=== PATIENT | female | born 1995 | race Caucasian/White ===

== ENCOUNTER 2022-11-25 13:53 | Emergency (ER) | payer BC, SELFPAY ==
[2022-11-25 14:03] VITALS: BP 144/93; PULSE 79; RESP 16; TEMP 36.5; O2SAT 100
--- NOTE | 2022-11-25 14:47 | ED.URI ---
HPI - URI/Sore Throat General Chief Complaint: Upper Respiratory Infection Stated Complaint: Cough,Fatigue,Congestion Time Seen by Provider: 11/25/22 14:11 Source: patient and RN notes reviewed Mode of arrival: ambulatory Limitations: no limitations History of Present Illness HPI Narrative: Patient presents today complaining of a 3 day history of sore throat, fatigue, cough, postnasal drip, bilateral ear clogging, decreased sleep due to coughing episodes. Denies fever or shortness of breath. History allergies and allergy induced asthma. Currently rates her pain 5/10 and has been taking Tylenol and ibuprofen with mild relief. She also takes an allergy pill daily. Related Data Home Medications Medication Instructions Recorded Confirmed budesonide-formoterol HFA 160 2 puff inhalation DAILY 11/25/22 11/25/22 mcg-4.5 mcg/actuation aerosol inhaler (Symbicort) norgestimate 0.25 mg-ethinyl 1 tablet PO DAILY 11/25/22 11/25/22 estradiol 35 mcg tablet (Estarylla) Allergies Allergy/AdvReac Type Severity Reaction Status Date / Time No Known Allergies Allergy Verified 11/25/22 14:06 Review of Systems Review of Systems: CONSTITUTIONAL: Denies body aches, fever, chills, or sweats.+ fatigue EYES: Denies visual changes, redness, or discharge. ENT: Denies rhinorrhea, congestion, or otalgia.+ sore throat, postnasal drip, bilateral ear coughing CARDIOVASCULAR: Denies chest pain, palpitations, or edema. RESPIRATORY: Denies dyspnea.+ cough GASTROINTESTINAL: Denies abdominal pain, nausea, vomiting, or diarrhea. GENITOURINARY: Denies dysuria or hematuria. SKIN: Denies rash, itching, or wounds. MUSCULOSKELETAL: Denies back pain, joint pain, or myalgia. NEUROLOGIC: Denies headache, numbness, tingling, or weakness. PSYCH: Denies depression or anxiety. [facility] Past Medical History Medical History (Updated 11/25/22 @ 14:52 by Elaina Murguia, DIVISIONAL HUMAN RESOURCES DIRECTOR, ) Asthma Seasonal allergies Comments At time of signature, I have reviewed and agree with nursing past medical, surgical, social and family history unless otherwise noted. Please see nursing chart for further information. There is no relevant family history pertinent to the presenting complaint Exam Narrative: GENERAL: Well-appearing, well-nourished, and in no acute distress. HEAD: Normocephalic, atraumatic. EYES: EOMI. No redness or drainage. Conjunctivae normal. ENT: Mucous membranes pink and moist. Nares congested. No rhinorrhea. Bilateral middle ear effusions without evidence of bacterial infection. Throat mildly erythematous without edema today. Uvula midline. NECK: Normal AROM. Supple. No lymphadenopathy. CHEST: No respiratory distress. Clear to auscultation. HEART: Regular rate and rhythm. No murmur appreciated. EXTREMITIES: Normal range of motion. No edema. SKIN: Warm, dry, no rash. Capillary refill normal. Normal skin turgor. NEURO: No focal deficits. Alert and oriented x3. Gait steady. PSYCH: Normal affect. No signs of depression or anxiety. Course Course Level of Care: Express Care Visit Vital Signs Vital signs: Vital Signs Oxygen Delivery Room Air 11/25/22 14:02 Temperature 97.7 F 11/25/22 14:03 Pulse Rate 79 11/25/22 14:03 Respiratory Rate 16 11/25/22 14:03 Blood Pressure 144/93 H 11/25/22 14:03 Pulse Oximetry 100 11/25/22 14:03 Oxygen Delivery Room Air 11/25/22 14:03 Reviewed. Pt has been instructed to follow up with her PCP regarding her elevated blood pressure today. MDM - URI/Sore Throat MDM Narrative Medical decision making narrative: Symptoms likely related to seasonal allergies. Will treat with prednisone. Instructed patient to continue her allergy medication and inhaler. Anticipatory guidance given. Differential Diagnosis Differential diagnosis: Likely upper respiratory infection, otitis media, viral infection, bronchitis and other (Seasonal allergies, asthma exacerbation) Critical Care Ti
== END 2022-11-25 14:58 | disposition home or self-care (01) ==
PROVIDERS: Emergency Provider Nurse Practitioner
DX: J30.2 Other seasonal allergic rhinitis (principal); J40 Bronchitis, not specified as acute or chronic; J45.909 Unspecified asthma, uncomplicated
CPT/HCPCS: 99203; G0463

== ENCOUNTER 2023-07-04 22:19 | Emergency (ER) | payer OTHER, SELFPAY ==
[2023-07-04 22:25] VITALS: BP 128/90; PULSE 118; RESP 20; TEMP 37.4; O2SAT 98
[2023-07-04 22:44] VITALS: O2SAT 99
--- NOTE | 2023-07-04 23:21 | PC.NURSE ---
care and report given to THUY Valadez. all questions answered.
[2023-07-04 23:23] LABS: Strep Group A RT-PCR NOT DETECTED (Negative)
[2023-07-04 23:34] LABS: Influenza A QL RT-PCR Negative (Negative); Influenza B QL RT-PCR Negative (Negative); RSV RNA, RT-PCR Negative (Negative); SARS-CoV-2 RNA PCR Negative (Negative)
--- NOTE | 2023-07-05 01:29 | ED.URI ---
HPI - URI/Sore Throat General Chief Complaint: Upper Respiratory Infection Stated Complaint: sore throat, aches all over Time Seen by Provider: 07/05/23 00:29 Source: patient Mode of arrival: ambulatory Limitations: no limitations History of Present Illness HPI Narrative: Patient is a 28-year-old female who presents the ED with report of URI symptoms. Patient reports she developed a sore throat today, in addition to chills, myalgias, congestion. She denies significant cough. Denies known fevers. Denies chest pain or shortness breath. Denies nausea, vomiting. Denies known sick contacts, but does states she went to a hockey game a couple of nights ago and was around a large crowd of people. Has taken OTC nirmal PromptCaretzer cough medicine. Related Data Home Medications Medication Instructions Recorded Confirmed budesonide-formoterol HFA 160 2 puff inhalation DAILY 11/25/22 11/25/22 mcg-4.5 mcg/actuation aerosol inhaler (Symbicort) norgestimate 0.25 mg-ethinyl 1 tablet PO DAILY 11/25/22 11/25/22 estradiol 35 mcg tablet (Estarylla) Allergies Allergy/AdvReac Type Severity Reaction Status Date / Time No Known Allergies Allergy Verified 07/04/23 22:19 Review of Systems Review of Systems: CONSTITUTIONAL: See HPI. ENT: See HPI. CARDIOVASCULAR: Denies chest pain. RESPIRATORY: Denies cough or dyspnea. GASTROINTESTINAL: Denies abdominal pain, nausea, vomiting. MUSCULOSKELETAL: Reports myalgia. All systems reviewed & are unremarkable except as noted in HPI and below PMFSH Past Medical History Medical History Asthma Seasonal allergies Exam Narrative: GENERAL: Well appearing, obese with BMI 30.0, non-toxic, in no acute distress. HEAD: Normocephalic, atraumatic. ENT: Mild posterior pharynx erythema. No tonsillar hypertrophy or exudate. Uvula midline. RESPIRATORY: Airway patent, respirations nonlabored. Clear to auscultation bilaterally, no rales, rhonchi, wheezing. CARDIOVASCULAR: Regular rate and rhythm without murmurs, rubs, or gallops. MUSCULOSKELETAL: Moves all extremities. No gross deformities. SKIN: Warm, dry, normal color. NEURO: A&O X3. Speech clear. Cranial nerves II-XII grossly intact. Steady gait. No ataxic movements. PSYCHIATRIC: Appropriate mood and affect. Normal interaction. Course Vital Signs Vital signs: Vital Signs Temperature 99.3 F 07/04/23 22:25 Pulse Rate 118 H 07/04/23 22:25 Respiratory Rate 20 07/04/23 22:25 Blood Pressure 128/90 07/04/23 22:25 Pulse Oximetry 98 07/04/23 22:25 Oxygen Delivery Room Air 07/04/23 22:25 Temperature 99.0 F 07/05/23 01:48 Pulse Rate 99 07/05/23 01:48 Respiratory Rate 16 07/05/23 01:48 Blood Pressure 123/88 07/05/23 01:48 Pulse Oximetry 100 07/05/23 01:48 Oxygen Delivery Room Air 07/04/23 22:44 MDM - URI/Sore Throat MDM Narrative Medical decision making narrative: Patient presented to ED with 1 day history of URI sx's. VSS upon arrival. viral swabs negative. Strep negative. Patient updated on results. Discussed likely of viral URI. Advised can retest for COVID-19 in the next few days if symptoms continue. Discussed symptom management. Discussed return precautions. Patient discharged in stable condition. Medical Records Attestation: I reviewed the patient's medical records. Lab Data Attestation: I reviewed the patient's lab results. Labs: Lab Results 07/04/23 Range/Units 22:34 Influenza A (RT-PCR) Negative (Negative) Influenza B (RT-PCR) Negative (Negative) RSV (RT-PCR) Negative (Negative) SARS-CoV-2 RNA (RT-PCR) Negative (Negative) Group A Strep (PCR) Not detected (Negative) Discharge Plan Discharge Clinical Impression: Viral syndrome Pharyngitis Qualifiers: Pharyngitis/tonsillitis etiology: unspecified etiology Qualified Code(s): J02.9 - Acute pharyngitis, unspecified
[2023-07-05 01:48] VITALS: BP 123/88; PULSE 99; RESP 16; TEMP 37.2; O2SAT 100
[2023-07-05] MEDS: LIDOCAINE HCL 2% VISC SOLN 15 ML UDC PO (01:51)
== END 2023-07-05 01:55 | disposition home or self-care (01) ==
PROVIDERS: Emergency Medicine; Emergency Provider Physician Assistant
DX: B34.9 Viral infection, unspecified (principal); J02.9 Acute pharyngitis, unspecified; Z20.822 Contact with and (suspected) exposure to COVID-19; J45.909 Unspecified asthma, uncomplicated
CPT/HCPCS: 87637; 87651; 99283

== ENCOUNTER 2024-07-05 13:35 | Emergency (ER) | payer OTHER, SELFPAY ==
[2024-07-05 14:14] VITALS: BP 142/83; PULSE 98; RESP 16; TEMP 36.6; O2SAT 99
--- NOTE | 2024-07-05 14:32 | ED_ITS ---
HPI - URI/Sore Throat General Chief Complaint: Upper Respiratory Infection Stated Complaint: Flu like symptoms Time Seen by Provider: 07/05/24 14:33 Source: patient and RN notes reviewed Mode of arrival: ambulatory Limitations: no limitations History of Present Illness HPI Narrative: 29-year-old female with history of asthma presented for complaint of headache, body aches, sinus pressure/congestion, cough, fever/chills. Onset 3 days. Denies sob, wheezing, n/v/d. Taking DayQuil and NyQuil for symptoms. MD elicited complaint: cough Related Data Home Medications ?Medication ?Instructions ?Recorded ?Confirmed ?Last Taken ?Type budesonide-formoterol HFA 160 2 puff inhalation DAILY 11/25/22 11/25/22 Unknown History mcg-4.5 mcg/actuation aerosol inhaler (Symbicort) norgestimate 0.25 mg-ethinyl 1 tablet PO DAILY 11/25/22 11/25/22 Unknown History estradiol 35 mcg tablet (Estarylla) Allergies Allergy/AdvReac Type Severity Reaction Status Date / Time No Known Allergies Allergy Verified 07/05/24 14:36 Review of Systems 2 Review of Systems: CONSTITUTIONAL: Endorses malaise, chills, sweats, fever EYES: Denies visual changes, redness, or discharge ENT: Reports rhinorrhea, congestion, sinus pain, otalgia, sore throat CARDIOVASCULAR: Denies chest pain, palpitations, edema RESPIRATORY: Reports cough, post nasal drainage. Denies dyspnea GASTROINTESTINAL: Denies abdominal pain, nausea, vomiting, diarrhea SKIN: Denies rash or itching MUSCULOSKELETAL: Endorses myalgia PMFSH Past Medical History Medical History Seasonal allergies Asthma Exam Narrative: GENERAL: Ill-appearing, nontoxic no acute distress. EYES: PERRLA, conjunctivae clear ENT: Mucous membranes moist. TM pearly guzman with dull light reflex bilaterally; no tragal tenderness. Oropharynx not erythematous without lesions or exudate, no drooling, no hoarseness, no trismus, uvula midline. No tripod positioning, muffled voice, soft palate or pharyngeal wall bulging NECK: Supple. No lymphadenopathy CHEST: Clear to auscultation, breath sounds equal. No wheezing, rhonchi, rales, or stridor. No respiratory distress, speaks in full sentences. HEART: Regular rate and rhythm. No murmur heard. SKIN: Warm, dry, no rash. NEURO: Alert and oriented x3. PSYCH: Normal mood and affect Course Course Emergency Course: Patient is aware of diagnosis, understands and agrees to treatment plan. Anticipatory guidance given. Patient agrees to follow-up as directed and is a neal of reasons to seek care at the emergency department. Portions of this record may have been created with voice recognition software Level of Care: Express Care Visit Vital Signs Vital signs: Vital Signs Temperature 97.8 F 07/05/24 14:14 Pulse Rate 98 07/05/24 14:14 Respiratory Rate 16 07/05/24 14:14 Blood Pressure 142/83 H 07/05/24 14:14 Pulse Oximetry 99 07/05/24 14:14 Temperature 97.8 F 07/05/24 14:14 Pulse Rate 98 07/05/24 14:14 Respiratory Rate 16 07/05/24 14:14 Blood Pressure 142/83 H 07/05/24 14:14 Pulse Oximetry 99 07/05/24 14:14 reviewed MDM - URI/Sore Throat MDM Narrative Medical decision making narrative: Discussed physical exam findings. POS flu. Advised supportive measures and signs/symptoms to go to the ER. Pt is appropriate for outpt treatment and f/u. Differential Diagnosis Differential diagnosis: Likely upper respiratory infection, otitis media, sinusitis, viral infection, bronchitis, influenza and pharyngitis Discharge Plan Discharge Clinical Impression: Influenza Patient Disposition: Home, Self-Care Condition: Stable Instructions: Influenza (ED) Additional Instructions: Influenza positive You should avoid crowds until you are fever free for 24 hours without the use of fever reducing medications, or the symptoms are improved Rest. Drink plenty of fluids. Tylenol 1000mg every 8 hours as needed for pain/fever Recommend Flonase spray and Zyrtec (or Claritin/Irish) for sinus pressure/congestion over the counter Cough syrup may cause drowsiness; avoid driving or take it at night time. Follow up with your primary care provider as needed in 1-2 weeks Go to the ER for worsening symptoms or concerns Patient Language: Frisian Prescriptions: New albuterol sulfate 90 mcg/actuation HFA aerosol inhaler 1 inh inhalation QID PRN (Reason: shortness of breath or wheezing) Qty: 8.5 0RF No Action norgestimate-ethinyl estradiol [Estarylla] 0.25-35 mg-mcg tablet 1 tablet PO DAILY budesonide-formoterol [Symbicort] 160-4.5 mcg/actuation HFA aerosol inhaler 2 puff INHALATION DAILY prednisone 50 mg tablet 50 mg PO DAILY 5 Days Qty: 5 0RF Follow-up/Referrals: UNKNOWN,DOCTOR [Primary Care Provider] - Stand Alone Forms: Work/School Release IP Time of Disposition: 14:37
[2024-07-05 14:35] LABS: EDCOVIDSCREEN Negative (Negative); EDINFLUASCREEN Positive (Negative); EDINFLUBSCREEN Negative (Negative)
--- OUTSIDE RECORDS SUMMARY | 2024-07-12 15:38 | XMS_ITS | Encounter Summary ---
Author Organization [facility] Address [address] [place] [address] Phone Care Team Providers Care Access Service Representative Name Role Phone Minnie Mcneil MD Primary Care Provider [phone] Encounter Details Date Type Department Care Team (Late st Contact Info) Description 05/02/2020 Orders Only [facility] Pulmonary [address] [facility] Advanced Medicine [address]th [place] [address] [place] [address] Casie Lowe MD PhD [address] [facility] [address] [place] [address] Moderate persistent asthma, unspecified whether complicated (Primary Dx) Social History Tobacco Use Types Packs/Day Years Used Date Smoking Tobacco: Never Smokeless Tobacco: Never Comments Unknown Sex and Gender Information Value Date Recorded Sex Assigned at Not on file 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
--- OUTSIDE RECORDS SUMMARY | 2024-07-12 15:38 | XMS_ITS | Clinical Summary ---
Author Organization [facility] Address [address] [place] [address] Care Team Providers Care Novelty Twister Operator Name Role Phone Minnie Mcneil MD Primary Care Provider [phone] Tbaby Hopkins RN Unavailable Unavailabl e Allergies No known active allergies Medications cetirizine-pseudo ephedrine ER (ZyrTEC-D) 5-120 mg per 12 hr tablet Take 1 tablet by mouth every 12 (twelve) hours 9 Active albuterol HFA (PROVENTIL HFA,VENTOLIN HFA,PROAIR HFA) 90 mcg/actuation inhaler Inhale 2 puffs every 6 (six) hours as needed 9 Active budesonide-formot Charly (Symbicort) 160-4.5 mcg/actuation inhaler Inhale 2 puffs 2 (two) times a day 9600 mcg of budesonide 5 1 Active mv-min/iron/folic /calcium/vitK (WOMEN'S MULTIVITAMIN ORAL) Take by mouth Active Active Problems Problem Noted Date Diagnosed Date Vocal cord dysfunction 04/14/2018 Moderate persistent asthma Overview (02/15/2020): Patient called in requesting refill of her symbicort. Called in refill of Symbicort to [facility] in [facility] as refill had not gone through. 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 Gender Identity Female 10/30/2021 8:16 AM CDT Sexual Orientation Not on file Obstetrics History Last Filed Vital Signs Vital Sign Reading Time Taken Comments Blood Pressure 133/96 04/29/2023 12:45 PM CDT Pulse 80 04/29/2023 12:45 PM CDT Temperature 36.6 ??C (97.9 ??F) 04/29/2023 12:45 PM C DT Respiratory Rate 18 04/29/2023 12:45 PM CDT Oxygen Saturation 97% 04/29/2023 12:45 PM CDT Inhaled Oxygen Concentration - - Weight 72.6 kg (160 lb) 04/29/2023 12:45 PM CDT Height 160 cm (5' 3 ) 04/29/2023 12:45 PM CDT Body Mass Index 28.34 04/29/2023 12:45 PM CDT Plan of Treatment Health Maintenance Due Date Last Done Comments Cervical Cancer Screening 1996 Depression Screening 1996 Hepatitis C Screening 1996 Pneumococcal vaccine <65 (1 of 2 - PCV) 2002 Regular Well Visit/Exam 18-64 2014 DTaP/Tdap/Td Vaccine (7 - Td or Tdap) 02/04/2017 02/04/2007, 11/11/2001, 06/18/1997, Additional history exists Influenza Vaccine (#1) 2024 9, 04/14/2018, 02/23/2016 Varicella Vaccines Completed 02/04/2007, 03/16/1997 HPV Vaccines Completed 07/04/2011, 02/06, 12/27/2010 Insurance CHOICE PLUS Care Teams Novelty Twister Operator Relationship Specialty [place] [address] [address] PCP - General Internal Medicine 05/04/19 Tabby Hopkins, RN Registered Nurse Pulmonary Disease 04/29/23
--- OUTSIDE RECORDS SUMMARY | 2024-07-12 15:38 | XMS_ITS | Encounter Summary ---
Author Organization [facility] Address [address] [place] [address] Phone Care Team Providers Care Cook Ship Name Role Phone Zunilda Coles MD Primary Care Provider + Encounter Details Date Type Department Care Team (Late st Contact Info) Description 04/14/2018 3:30 PM CDT Office Visit [facility] Pulmonary [address] [facility] Advanced Medicine [address]th [place] [address] [place] [address] Dann Vega MD [address] [place], [place] [id number] Moderate persistent asthma without complication (Primary Dx); Vocal cord dysfunction Social History Tobacco Use Types Packs/Day Years Used Date Smoking Tobacco: Never Smokeless Tobacco: Never Comments Unknown Sex and Gender Information Value Date Recorded Sex Assigned at Not on file 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 Gender Identity Female 10/30/2021 8:16 AM CDT Sexual Orientation Not on file documented as of this encounter Last Filed Vital Signs Vital Sign Reading Time Taken Comments Blood Pressure 123/83 04/14/2018 3:43 PM CDT Pulse 65 04/14/2018 3:43 PM CDT Temperature 36.9 ??C (98.4 ??F) 04/14/2018 3:43 PM CD T Respiratory Rate 18 04/14/2018 3:43 PM CDT Oxygen Saturation 96% 04/14/2018 3:43 PM CDT Inhaled Oxygen Concentration - - Weight 64.4 kg (142 lb) 04/14/2018 3:43 PM CDT Height 157.5 cm (5' 2 ) 04/14/2018 3:43 PM CDT Body Mass Index 25.97 04/14/2018 3:43 PM CDT documented in this encounter Patient Instructions * Patient Instructions* Sourav Max MD - 04/14/2018 3:30 PM CDT Decrease Symbicort to 2 puffs in the morning (even though the script will say twice daily - this will give you extra doses). documented in this encounter Ordered Prescriptions Prescription Sig Dispense Quantity Refills Last Filled Start Date End Date albuterol HFA (PROAIR HFA) 90 mcg/actuation inhaler Inhale 2 puffs every 6 (six) hours as needed for wheezing. 1 Inhaler 5 04/14/2018 04/23/2019 budesonide-formote rol (SYMBICORT) 160-4.5 mcg/actuation inhaler Inhale 2 puffs 2 (two) times a day. 1 Inhaler 5 04/14/2018 04/23/2019 documented in this encounter Progress Notes * Sourav Max MD - 04/14/2018 12:00 AM CDT PATIENT NAME: ROYER GONZALEZ : 1995 VIJAY: 04/14/2018 CHIEF COMPLAINT: Asthma. INTERVAL HISTORY: Ms. Gonzalez returns for follow-up of her moderate persistent asthma and vocal cord dysfunction. She remains on Symbicort 160/4.5 two puffs b.i.d. and has been using albuterol scheduled prior to exercise. She continues to perform her vocal cord therapy exercises. Overall, she feels remarkably improved. She is sleeping through the night, has no exercise-induced dyspnea, and no other symptoms. Sheis tremendously pleased with this improvement. The remainder of the past medical history, medications, allergies, social history, family history, and review of systems are as noted on the previous visit from 09/09/2017. PHYSICAL EXAMINATION: Vital Signs: Per flow sheet. HEENT: Oropharynx clear. Neck: No lymphadenopathy. Cardiovascular: Regular rate and rhythm. Chest: Unlabored CTAB. Abdomen: Soft. Extremities: No clubbing, cyanosis, or edema. DATA: 1. ACT 24 (improved from 22). 2. Spirometry: FEV1 3.81, 117% predicted. FVC 4.50, 121% predicted. FEV1/FVC 85%. Interpretation: Normal spirometry, improved from prior. IMPRESSION: 1. Moderate persistent asthma--markedly improved control and lung function. 2. Vocal cord dysfunction--confirmed by rhinoscopy--improved on speech therapy. 3. Hypovitaminosis D--on replacement therapy. 4. Rhinitis. PLAN: 1. Decrease Symbicort to 80/4.5 two puffs b.i.d. 2. Continue ProAir 2 puffs 10 to 15 minutes prior to exercise. 3. She will receive an influenza vaccine in the clinic today. 4. Return in 6 months. ELECTRONICALLY SIGNED - 04/14/2018 06:42 PM Sourav Max M.D. Fellow I have seen and examined the patient and agree with the findings and plan of care as documented by and/or discussed with Sourav Max M.D.. ELECTRONICALLY SIGNED - 04/16/2018 06:18 PM Dann Vega M.D. senior quality methods specialist RISHABH/ALEXI/lorenzo cc: ZUNILDA COLES MD [address] [facility] [address] [place] [address] / ELIOT GUZMAN RN [address] [facility] [address] [place] [id number] documented in this encounter Plan of Treatment Not on file documented as of this encounter Visit Diagnoses Diagnosis Moderate persistent asthma without complication- Primary Vocal cord dysfunction Other diseases of vocal cords documented in this encounter Discontinued Medications Medication Sig Discontinue Reason Start Date End Da te budesonide-formoterol (SYMBICORT) 160-4.5 mcg/actuation inhaler Inhale 2 puffs. Duplicate order 04/14/2018 budesonide-formoterol (SYMBICORT) 160-4.5 mcg/actuation inhaler 2 times daily. Reorder 05/27/2017 04/14/2018 albuterol HFA (PROAIR HFA) 90 mcg/actuation inhaler 4 times daily. Reorder 05/27/2017 018 documented as of this encounter Historical Medications * This list may reflect changes made after this encounter. geriatric multivitamin-min tablet Take 1 tablet by mouth daily. 11/03/2021 budesonide-formot yulia (SYMBICORT) 160-4.5 mcg/actuation inhaler Inhale 2 puffs. 04/14/2018 cholecalciferol (VITAMIN D3) 2,000 unit capsule Take by mouth. 05/04/2019 cetirizine (ZyrTEC) 10 mg tablet Take by mouth. 05/02/2020 albuterol ER (VOSPIRE ER) 4 mg 12 hr tablet Inhale 2 puffs every 6 hours. 11/03/2021 ergocalciferol (VITAMIN D) 50,000 unit capsule once a week. 05/27/2017 11/03/2021 budesonide-formot yulia (SYMBICORT) 160-4.5 mcg/actuation inhaler 2 times daily. 05/27/2017 04/14/2018 albuterol HFA (PROAIR HFA) 90 mcg/actuation inhaler 4 times daily. 05/27/2017 04/14/2018 predniSONE (DELTASONE) 10 mg tablet daily. 05/27/2017 11/03/2021 cetirizine (ZyrTEC) 10 mg tablet 05/02/2020 added in this encounter Orders Immunization/Injection Count Last Ordered Date First Ordered Date FLU VACCINE MDCK QUAD PF 4Y+ IM - FLUCELVAX 1 04/14/2018 documented in this encounter Care Teams Cook Ship Relationship Specialty Start Date End Date Zunilda Coles MD [address] [place] [address] PCP - General 06/03/17 05/03/19 documented as of this encounter
--- OUTSIDE RECORDS SUMMARY | 2024-07-12 15:38 | XMS_ITS | Encounter Summary ---
Author Organization [facility] Address [address] [facility] [address] [place] [address] Phone Care Team Providers Care Boat Carpenter Mechanic Name Role Phone Minnie Mcneil MD Primary Care Provider [phone] Tabby Hopkins RN Unavailable Unavailabl e Reason for Referral * Procedure (Routine) - Authorized Specialty Diagnoses / Procedures Referred By Krystina t Referred To Contact Diagnoses Mild intermittent asthma, unspecified whether complicated Procedures Pulmonary Function Test -[facility]FT [facility]- [facility]-8D; Spirometry David Goff MD [address] [facility] [address] [place] [address] Phone: tel: fax: Referral ID Status Reason Start Date Expiration Date V isits Requested Visits Authorized [id number] Authorized 04/29/2023 05/28/2024 1 1 Encounter Details Date Type Department Care Team (Late st Contact Info) Description 04/29/2023 1:00 PM CDT Office Visit [facility] [address] [facility] 8th [place] [address] [place] [id number] Casie Lowe MD PhD [address] [place] [address] Mild intermittent asthma, unspecified whether complicated (Primary Dx) Social History Tobacco Use Types Packs/Day Years Used Date Smoking Tobacco: Never Smokeless Tobacco: Never Comments Unknown Sex and Gender Information Value Date Recorded Sex Assigned at Not on file 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 Please continue your symbicort every other day and use one puff as needed with symptoms, you can repeat it in 15 min, up to 6 times a day We will see you back in 18 months documented in this encounter Progress Notes * Casie Lowe MD PhD - 04/29/2023 1:00 PM CDT [facility] [place] [facility] follow-up visit PROBLEM LIST: 1. Moderate persistent asthma, childhood onset. On Symbicort 160mcg, currently taking once daily. 2. Allergic rhinitis, on Zyrtec. 3. Vocal Cord dysfunction, diagnosed in 06/2017, status post teaching/training by speech pathology Interval history: Ms. Tanner is a 28 yo female with a history of moderate persistent asthma, allergic rhinitis, and VCD who presents for follow up. She was last seen in 10/2021. At that time, she was doing well on Symbicort 2 puffs once daily. She is overall doing quite well. She has been using symbicort 2 puffs once every other day. She denies any asthma symptoms other than with seasonal changes, but this is well controlled with prn symbicort. Albuterol use- none Nocturnal symptoms- none Exacerbations- none since 2019 AIRQ: 0 Review of Systems: All other systems reviewed and negative other than per interval history above. Medications: Current Outpatient Medications: budesonide-formoteroL (Symbicort) 160-4.5 mcg/actuation inhaler, Inhale 2 puffs 2 (two) times a day, Disp: 9600 mcg of budesonide, Rfl: 5 cetirizine-pseudoephedrine ER (ZyrTEC-D) 5-120 mg per 12 hr tablet, Take 1 tablet by mouth every 12(twelve) hours, Disp: , Rfl: mv-min/iron/folic/calcium/vitK (WOMEN'S MULTIVITAMIN ORAL), Take by mouth, Disp: , Rfl: albuterol HFA (PROVENTIL HFA,VENTOLIN HFA,PROAIR HFA) 90 mcg/actuation inhaler, Inhale 2 puffs every 6 (six) hours as needed (Patient not taking: Reported on 04/29/2023), Disp: , Rfl: Physical Exam: Vitals BP 133/96 Pulse 80 Temp 36.6 ??C (97.9 ??F) (Oral) Resp 18 Ht 160 cm (5' 3 ) Wt 72.6 kg (160 lb) SpO2 97% BMI 28.34 kg/m?? Vitals reviewed. Constitutional: Well-developed and well-nourished. No acute distress HEENT: no scleral icterus, mmm, OP clear Neck: Normal range of motion. Supple. No LAD. Cardiovascular: RRR, No M/G/R Pulmonary/Chest: CTAB, No increased WOB Abdominal: Soft, NTND, Normoactive bowel sounds Musculoskeletal: No JORGE. Warm and well perfused. Neurological: AO x 3, No Focal neurologic deficits Skin: Skin is warm and dry. No rash noted. DATA: Labs reviewed in Epic. PFTs: FVC PRE Date Value Ref Range Status 04/29/2023 4.39 L Final 10/30/2021 4.39 L Final 05/04/2019 4.38 0 - 12 Liters Final 04/14/2018 4.50 0 - 12 Liters Final FVC %PRE PRED Date Value Ref Range Status 04/29/2023 118 % Final 10/30/2021 118 % Final 05/04/2019 117 0 - 300 % Final 04/14/2018 121 0 - 300 % Final FEV1 PRE Date Value Ref Range Status 04/29/2023 3.63 L Final 10/30/2021 3.58 L Final 05/04/2019 3.62 0 - 12 Liters Final 04/14/2018 3.81 0 - 12 Liters Final FEV1 %PRE PRED Date Value Ref Range Status 04/29/2023 114 % Final 10/30/2021 111 % Final 05/04/2019 112 0 - 300 % Final 04/14/2018 117 0 - 300 % Final Assessment 1. Mild persistent asthma, childhood onset, well-controlled. She is currently taking Symbicort 160mcg every other day. 2. Allergic rhinitis, on Zyrtec. She did not like Flonase but feels that her symptoms are adequately controlled. 3. Vocal Cord dysfunction, diagnosed in 06/2017, status post teaching/training by speech pathology.This may be the cause of the flattening of the inspiratory loop on spirometry. Recommendations Continue symbicort 2 puffs every other day Continue Zyrtec. Continue exercises for vocal cord dysfunction. Annual flu shot Return to clinic in 18 months with spirometry, or sooner if needed. Next visit will be with Italia Glass, will see her every other visit Staffed with Dr. Mynor Goff MD Pulmonary/Critical Care Fellow PGY6 I have seen and examined the patient. I agree with the findings and plan of care as documented in the resident/fellow's note. Stable on symbicort every other day. Added on as needed use for worsenings. Instruction given on how to do it. Casie Lowe MD, MPH laborer poultry hatchery documented in this encounter Plan of Treatment Scheduled Orders Name Type Priority Associated Diagnoses Orde r Schedule Pulmonary Function Test -[facility]- [facility]-8D; Spirometry PFT Routine Mild intermittent asthma, unspecified whether complicated Expected: 10/28/2024, Expires: 12/04/2024 documented as of this encounter Visit Diagnoses Diagnosis Mild intermittent asthma, unspecified whether complicated- Primary documented in this encounter Care Teams Boat Carpenter Mechanic Relationship Specialty [place] [address] [address] PCP - General Internal Medicine 05/04/19 Tabby Hopkins RN Registered Nurse Pulmonary Disease 04/29/23 documented as of this encounter
--- OUTSIDE RECORDS SUMMARY | 2024-07-12 15:38 | XMS_ITS | Encounter Summary ---
Author Organization [facility] Address [address] [facility] [address] [place] [address] Phone Care Team Providers Care Ingot Caster Name Role Phone Minnie Mcneil MD Primary Care Provider [phone] Reason for Referral * (Routine) - Closed Specialty Diagnoses / Procedures Referred By Krystina jansen Referred To Contact Diagnoses Asthma, unspecified asthma severity, unspecified whether complicated, unspecified whether persistent Procedures Pulmonary Function Test -[facility] Adult [facility]FT [facility]- [facility]; Spirometry Casie Lowe MD PhD Phone: tel: fax: Referral ID Status Reason Start Date Expiration Date Visits Re quested Visits Authorized [id number] Closed 05/01/2019 11/09/2020 1 1 Reason for Visit * Diagnostic Lab (Routine) - Closed Specialty Diagnoses / Procedures Referred By Contsonal t Referred To Contact Pulmonology Diagnoses SPI Procedures GENERIC PFT LAB Sourav Max Jr., MD Phone: tel: fax: [facility] [address] [facility] [address] [place] [address] Phone: tel: fax: Referral ID Status Reason Start Date Expiration Date Visits Re quested Visits Authorized [id number] Closed 05/04/2019 07/07/2019 99 99 Encounter Details Date Type Department Care Team (Latest Contact Info) Description 05/04/2019 3:02 PM CDT - 05/04/2019 11:59 PM CDT Hospital Encounter [facility] [address] [facility] [address] [place] [address] Asthma, unspecified asthma severity, unspecified whether complicated, unspecified whether persistent Discharge Disposition: Discharge to home or self care Social History Tobacco Use Types Packs/Day Years Used Date Smoking Tobacco: Never Smokeless Tobacco: Never Comments Unknown Sex and Gender Information Value Date Recorded Sex Assigned at Not on file 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 2 albuterol HFA (PROAIR HFA) 90 mcg/actuation inhaler Inhale 2 puffs every 6 (six) hours as needed for wheezing 1 Inhaler 5 04/23/2019 0 budesonide-formo terol (SYMBICORT) 160-4.5 mcg/actuation inhaler Inhale 2 puffs 2 (two) times a day 1 Inhaler 5 04/23/2019 0 budesonide-formo teroL (Symbicort) 160-4.5 mcg/actuation inhaler 2 puffs 2 (two) times a day 02/25/2019 0 cetirizine (ZyrTEC) 10 mg tablet 0 cetirizine (ZyrTEC) 10 mg tablet Take by mouth. 0 ergocalciferol (VITAMIN D) 50,000 unit capsule once a week. 05/27/2017 2 fluticasone propionate (FLONASE) 50 mcg/actuation nasal spray Administer 2 sprays into each nostril daily 16 g 6 05/04/2019 2 geriatric multivitamin-min tablet Take 1 tablet by mouth daily. 2 predniSONE (DELTASONE) 10 mg tablet daily. 05/27/2017 2 documented as of this encounter Discharge Disposition Disposition Code Departure Means Destination Discharge to home or self care documented in this encounter Plan of Treatment Not on file documented as of this encounter Procedures Procedure Name Priority Date/Time Associated Diagnosis Comments PULMONARY FUNCTION TEST (PFT) Routine 05/04/2019 3:12 PM CDT Asthma, unspecified asthma severity, unspecified whether complicated, unspecified whether persistent documented in this encounter Results * Pulmonary Function Test - (05/04/2019 3:12 PM CDT) FVC PRED 3.73 0.05 - 9.99 Liters [facility] FVC PRE 4.38 0 - 12 Liters [facility] FVC %PRE PRED 117 0 - 300 % [facility] FEV1 PRED 3.24 0.05 - 9.99 Liters [facility] FEV1 PRE 3.62 0 - 12 Liters [facility] FEV1 %PRE PRED 112 0 - 300 % [facility] FEV1/FVC PRED 87 1 - 99 % [facility] FEV1/FVC PRE 83 0 - 12 % [facility] ZME78-63% PRED 3.81 0 - 12 L/sec [facility] IBA96-47% PRE 3.61 0 - 12 L/sec [facility] KXS20-45% %PRE PRED 95 0 - 300 % [facility] FEF75% PRED 1.83 0 - 300 L/sec [facility] FEF75% PRE 1.75 0 - 12 L/sec [facility] FEF75% %PRE PRED 96 % [facility] PEF PRED 6.55 0 - 18 L/sec [facility] PEF PRE 7.96 0 - 18 L/sec [facility] PEF %PRE PRED 121 0 - 300 % [facility] PIF PRE 1.72 0 - 18 L/sec [facility] VC PRED 3.57 0.05 - 9.99 Liters [facility] TLC PRED 4.96 0.05 - 11.99 Liters [facility] RV PRED 1.21 0.05 - 9.99 Liters [facility] RV/TLC PRED 24 0 - 300 % [facility] FRC N2 PRED 2.28 0.05 - 9.99 Liters [facility] FRC PL PRED 2.69 0.05 - 9.99 Liters [facility] ERV PRED 1.26 0.05 - 9.99 Liters [facility] DLCO PRED 29.5 0.05 - 99.99 mL/mmHg/min [facility] DL ADJ PRED 29.5 1 - 2 mL/mmHg/min [facility] DLCO/VA PRED 6.00 mL/mHg/min/ L [facility] DL/VA ADJ PRED 4.75 mL/mHg/min/ L [facility] RAW PRED 1.43 cmH2O/L/sec [facility] GAW PRED 0.644 L/sec/cmH2O [facility] SRAW PRED 3.84 cmH2O/L/s/L [facility] SGAW PRED 0.261 L/s/cmH2O/L [facility] Anatomical Region Laterality Modality PFT 05/04/2019 3:08 PM CDT Narrative 05/06/2019 5:50 PM CDT SEE PDF us Casie Lowe MD PhD PFT ORDERABLES Final Resul t documented in this encounter Visit Diagnoses Diagnosis Asthma, unspecified asthma severity, unspecified whether complicated, unspecified whether persistent documented in this encounter Care Teams Ingot Caster Relationship Specialty [place] [address] [place] [address] PCP - General Internal Medicine 05/04/19 documented as of this encounter
--- OUTSIDE RECORDS SUMMARY | 2024-07-12 15:38 | XMS_ITS | Encounter Summary ---
Author Organization [facility] Address [address] [facility] [address] [place] [address] Phone Care Team Providers Care Manager Insurance Name Role Phone Minnie Mcneil MD Primary Care Provider [phone] Reason for Referral * (Routine) - Closed Specialty Diagnoses / Procedures Referred By Krystina jansen Referred To Contact Diagnoses Moderate persistent asthma, unspecified whether complicated Procedures Pulmonary Function Test -[facility]- [facility]-8D; Spirometry Sony Hickey MD Phone: tel: fax: Referral ID Status Reason Start Date Expiration Date Visits Re quested Visits Authorized [id number] Closed 05/04/2019 11/12/2020 1 1 Reason for Visit * (Routine) - Closed Specialty Diagnoses / Procedures Referred By Krystina jansen Referred To Contact Diagnoses Moderate persistent asthma, unspecified whether complicated Procedures Pulmonary Function Test -[facility]- [facility]-8D; Spirometry Sony Hickey MD Phone: tel: fax: Referral ID Status Reason Start Date Expiration Date Visits Re quested Visits Authorized [id number] Closed 05/04/2019 11/12/2020 1 1 Encounter Details Date Type Department Care Team (Latest Contact Info) Description 05/02/2020 1:14 PM CDT - 05/02/2020 11:59 PM CDT Hospital Encounter [facility] [address] [facility] [address] [place] [address] Moderate persistent asthma, unspecified whether complicated Discharge Disposition: Discharge to home or self care Social History Tobacco Use Types Packs/Day Years Used Date Smoking Tobacco: Never Smokeless Tobacco: Never Comments Unknown Sex and Gender Information Value Date Recorded Sex Assigned at Not on file 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 2 budesonide-formo teroL (Symbicort) 160-4.5 mcg/actuation inhaler Inhale 2 puffs 2 (two) times a day 1 Inhaler 5 02/16/2020 1 ergocalciferol (VITAMIN D) 50,000 unit capsule once a week. 05/27/2017 2 fluticasone propionate (FLONASE) 50 mcg/actuation nasal spray Administer 2 sprays into each nostril daily 16 g 6 05/04/2019 2 geriatric multivitamin-min tablet Take 1 tablet by mouth daily. 2 predniSONE (DELTASONE) 10 mg tablet daily. 05/27/2017 2 Sprintec, 28, 0.25-35 mg-mcg per tablet Take 1 tablet by mouth daily 03/03/2020 2 documented as of this encounter Discharge Disposition Disposition Code Departure Means Destination Discharge to home or self care documented in this encounter Plan of Treatment Not on file documented as of this encounter Procedures Procedure Name Priority Date/Time Associated Diagnosis Comments PULMONARY FUNCTION TEST (PFT) Routine 05/02/2020 1:23 PM CDT Moderate persistent asthma, unspecified whether complicated documented in this encounter Results * Pulmonary Function Test - (05/02/2020 1:23 PM CDT) Anatomical Region Laterality Modality PFT 05/02/2020 1:18 PM CDT Impressions 05/05/2020 6:45 AM CDT There is no ventilatory defect. Compared with study dated 05/04/2019, there has been no significant interval change. Interpreting Attending Physician: Ras Lauren M.D. The attending pulmonary physician certifies that he/she has reviewed and interpreted the graphic and numerical data of this pulmonary function study and agrees with the written final report. ??The lower limit of normal for PO2 and %HbO2 is age dependent. However, the [facility] Pulmonary Function Laboratory defines hypoxemia as a PO2 <55 or a %HbO2 <89. Review Status: Not Reviewed ?Pre-Bronch ?Post-Bronch ? Pred ??Actual %Pred ??Actual %Chng SPIROMETRY FVC (L) ?3.71 ?? 4.35 ? 117 ? FEV1 (L) ? 3.21 ?? 3.56 ? 110 ? FEV1/FVC (%) ? 87.0 ?? 81.8 ?93 ? FEF 25% (L/sec) ?5.76 ?? 6.29 ? 109 ? FEF 50% (L/sec) ?4.67 ?? 4.17 ?89 ? FEF 75% (L/sec) ?1.77 ?? 1.61 ?91 ? FEF 25-75% (L/sec) ? 3.75 ?? 3.52 ?93 ? PEF (L/sec) ?6.79 ?? 7.17 ? 105 ? FIVC (L) ?3.94 ? FIF 50% (L/sec) ?4.19 ?? 2.82 ?67 ? FIF Max (L/sec) ? 2.94 ? FET 100% (sec) ?6.80 ? Back Extrap Vol (L) ? 0.09 ? Time To FEFmax (sec) ? 0.079 ? Narrative 05/05/2020 6:45 AM CDT SEE PDF PFT performed at:->[facility]:->[facility]pirom[facility] Site: [facility], [address] [place] [id number] ID: [id number] ??Name: ROYER TANNER Visit Date: 05/02/2020 ??Second ID: [id number] Reviewing Doctor: RAS LAUREN MD Financial Quantitative Analyst: Mary Mathew RRT Age: 25 ??: 1995 ??Sex: Female ??Race: Height: 63.20 ??Inches ??Weight: 162.00 ??Lbs ??BSA: 1.77 Order IDs: [id number] Requested Test(s): PULMONARY FUNCTION TEST^PFT performed at:->[facility]^Procedure:->Spirometry Diagnosis: Asthma Medications: Symbicort 630 Post Test Comments: INTERPRETATION: Spirometry (Flow-Volume Curve/Mechanics): The flow-volume curve is normal. ??The shape of the inspiratory limb of the flow-volume loop is flattened, suggestive of a variable extrathoracic airway obstruction or submaximal effort. us Sony Hickey MD PFT ORDERABLES Final Result documented in this encounter Visit Diagnoses Diagnosis Moderate persistent asthma, unspecified whether complicated documented in this encounter Care Teams Manager Insurance Relationship Specialty Start [place] [address] [facility] [address] [place] [address] PCP - General Internal Medicine 05/04/19 documented as of this encounter
--- OUTSIDE RECORDS SUMMARY | 2024-07-12 15:38 | XMS_ITS | Encounter Summary ---
Author Organization [facility] Address [address] [facility] [address] [place] [address] Phone Care Team Providers Care Water Filtration Technician Name Role Phone Zunilda Coles MD Primary Care Provider + Reason for Referral * Diagnostic Lab (Routine) - Closed Specialty Diagnoses / Procedures Referred By Contac t Referred To Contact Pulmonology Diagnoses Moderate persistent asthma without complication Procedures Pulmonary Function Test -[facility]- CAM-8D; Spirometry Dann Vega MD Phone: tel: fax: Referral ID Status Reason Start Date Expiration Date Visits Re quested Visits Authorized [id number] Closed 11/15/2017 11/15/2018 99 99 Reason for Visit * Diagnostic Lab (Routine) - Closed Specialty Diagnoses / Procedures Referred By Contac t Referred To Contact Pulmonology Diagnoses Moderate persistent asthma without complication Procedures Pulmonary Function Test -[facility]- CAM-8D; Spirometry Dann Vega MD Phone: tel: fax: Referral ID Status Reason Start Date Expiration Date Visits Re quested Visits Authorized [id number] Closed 11/15/2017 11/15/2018 99 99 Encounter Details Date Type Department Care Team (Latest Contact Info) Description 04/14/2018 3:00 PM CDT - 04/14/2018 11:59 PM CDT Hospital Encounter [facility] Pulmonary [address] [facility] [address] [place] [id number] Moderate persistent asthma without complication Discharge Disposition: Discharge to home or self care Social History Tobacco Use Types Packs/Day Years Used Date Smoking Tobacco: Never Smokeless Tobacco: Never Comments Unknown Sex and Gender Information Value Date Recorded Sex Assigned at Not on file 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 11/03/2021 albuterol HFA (PROAIR HFA) 90 mcg/actuation inhaler Inhale 2 puffs every 6 (six) hours as needed for wheezing. 1 Inhaler 5 04/14/2018 04/23/2019 budesonide-formot yulia (SYMBICORT) 160-4.5 mcg/actuation inhaler Inhale 2 puffs 2 (two) times a day. 1 Inhaler 5 04/14/2018 04/23/2019 cetirizine (ZyrTEC) 10 mg tablet 05/02/2020 cetirizine (ZyrTEC) 10 mg tablet Take by mouth. 05/02/2020 cholecalciferol (VITAMIN D3) 2,000 unit capsule Take by mouth. 05/04/2019 ergocalciferol (VITAMIN D) 50,000 unit capsule once a week. 05/27/2017 11/03/2021 geriatric multivitamin-min tablet Take 1 tablet by mouth daily. 11/03/2021 predniSONE (DELTASONE) 10 mg tablet daily. 05/27/2017 11/03/2021 documented as of this encounter Discharge Disposition Disposition Code Departure Means Destination Discharge to home or self care documented in this encounter Plan of Treatment Not on file documented as of this encounter Procedures Procedure Name Priority Date/Time Associated Diagnosis Comments PULMONARY FUNCTION TEST (PFT) Routine 04/14/2018 3:36 PM CDT Moderate persistent asthma without complication documented in this encounter Results * Pulmonary Function Test -[facility]- CAM-8D; Spirometry (04/14/2018 3:36 PM CDT) FVC PRED 3.73 0.05 - 9.99 Liters [facility] FVC PRE 4.50 0 - 12 Liters [facility] FVC %PRE PRED 121 0 - 300 % [facility] FEV1 PRED 3.25 0.05 - 9.99 Liters [facility] FEV1 PRE 3.81 0 - 12 Liters [facility] FEV1 %PRE PRED 117 0 - 300 % [facility] FEV1/FVC PRED 88 1 - 99 % [facility] FEV1/FVC PRE 85 0 - 12 % [facility] PQY91-51% PRED 3.84 0 - 12 L/sec [facility] MWP35-42% PRE 4.02 0 - 12 L/sec [facility] MLC11-76% %PRE PRED 105 0 - 300 % [facility] FEF75% PRED 1.87 0 - 300 L/sec [facility] FEF75% PRE 2.30 0 - 12 L/sec [facility] FEF75% %PRE PRED 123 % [facility] PEF PRED 6.58 0 - 18 L/sec [facility] PEF PRE 8.94 0 - 18 L/sec [facility] PEF %PRE PRED 136 0 - 300 % [facility] PIF PRE 3.15 0 - 18 L/sec [facility] VC PRED 3.58 0.05 - 9.99 Liters [facility] TLC PRED 4.96 0.05 - 11.99 Liters [facility] RV PRED 1.19 0.05 - 9.99 Liters [facility] RV/TLC PRED 24 0 - 300 % [facility] FRC N2 PRED 2.28 0.05 - 9.99 Liters [facility] FRC PL PRED 2.68 0.05 - 9.99 Liters [facility] ERV PRED 1.27 0.05 - 9.99 Liters [facility] DLCO PRED 29.7 0.05 - 99.99 mL/mmHg/min [facility] DL ADJ PRED 29.7 1 - 2 mL/mmHg/min [facility] DLCO/VA PRED 6.03 mL/mHg/min/ L [facility] DL/VA ADJ PRED 4.85 mL/mHg/min/ L [facility] RAW PRED 1.43 cmH2O/L/sec [facility] GAW PRED 0.644 L/sec/cmH2O [facility] SRAW PRED 3.84 cmH2O/L/s/L [facility] SGAW PRED 0.261 L/s/cmH2O/L [facility] Anatomical Region Laterality Modality PFT 04/14/2018 3:31 PM CDT Narrative 04/17/2018 1:16 PM CDT See pdf us Dann Vega MD PFT ORDERABLES Final Result documented in this encounter Visit Diagnoses Diagnosis Moderate persistent asthma without complication documented in this encounter Care Teams Water Filtration Technician Relationship Specialty Start Date End Date Zunilda Coles MD [address] [place] [address] PCP - General 06/03/17 05/03/19 documented as of this encounter
--- OUTSIDE RECORDS SUMMARY | 2024-07-12 15:38 | XMS_ITS | Encounter Summary ---
Author Organization [facility] Address [address] [facility] [address] [place] [address] Phone Care Team Providers Care Wireless Development Manager Name Role Phone Minnie Mcneil MD Primary Care Provider Reason for Referral * (Routine) - Closed Specialty Diagnoses / Procedures Referred By Krystina jansen Referred To Contact Diagnoses Moderate persistent asthma, unspecified whether complicated Procedures Pulmonary Function Test -[facility]- CAM-8D; Spirometry Casie Lowe MD PhD [address] [place] [address] Phone: tel: fax: Referral ID Status Reason Start Date Expiration Date Visits Re quested Visits Authorized [id number] Closed 03/02/2021 04/01/2022 1 1 Reason for Visit * (Routine) - Closed Specialty Diagnoses / Procedures Referred By Krystina t Referred To Contact Diagnoses Moderate persistent asthma, unspecified whether complicated Procedures Pulmonary Function Test -[facility]- CAM-8D; Spirometry Casie Lowe MD PhD [address] [address] Phone: tel: fax: Referral ID Status Reason Start Date Expiration Date Visits Re quested Visits Authorized [id number] Closed 03/02/2021 04/01/2022 1 1 Encounter Details Date Type Department Care Team (Latest Contact Info) Description 10/30/2021 1:35 PM CDT - 10/30/2021 11:59 PM CDT Hospital Encounter [facility] Pulmonary [address] [facility] [address] [place] [address] Moderate persistent asthma, unspecified whether complicated Discharge Disposition: Discharge to home or self care Social History Tobacco Use Types Packs/Day Years Used Date Smoking Tobacco: Never Smokeless Tobacco: Never Comments Unknown Sex and Gender Information Value Date Recorded Sex Assigned at Not on file 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 Gender Identity Female 10/30/2021 8:16 AM CDT Sexual Orientation Not on file documented as of this encounter Medications at Time of Discharge albuterol HFA (PROVENTIL HFA,VENTOLIN HFA,PROAIR HFA) 90 mcg/actuation inhaler Inhale 2 puffs every 6 (six) hours as needed 12/30/2018 budesonide-formot Charly (Symbicort) 160-4.5 mcg/actuation inhaler Inhale 2 puffs 2 (two) times a day 9600 mcg of budesonide 5 03/03/2021 cetirizine-pseudo ephedrine ER (ZyrTEC-D) 5-120 mg per 12 hr tablet Take 1 tablet by mouth every 12 (twelve) hours 07/27/2018 mv-min/iron/folic /calcium/vitK (WOMEN'S MULTIVITAMIN ORAL) Take by mouth albuterol ER (VOSPIRE ER) 4 mg 12 hr tablet Inhale 2 puffs every 6 hours. 2 ergocalciferol (VITAMIN D) 50,000 unit capsule once [...] Diagnosis Comments PULMONARY FUNCTION TEST (PFT) Routine 10/30/2021 1:46 PM CDT Moderate persistent asthma, unspecified whether complicated documented in this encounter Results * Pulmonary Function Test - (10/30/2021 1:46 PM CDT) Pathologist [facility] FVC PRE 4.39 L [facility] FVC %PRE PRED 118 % [facility] FEV1 PRE 3.58 L [facility] FEV1 %PRE PRED 111 % [facility] FEV1/FVC PRE 81.5 % [facility] Anatomical Region Laterality Modality PFT 10/30/2021 1:39 PM CDT Narrative 11/02/2021 7:28 AM CDT SEE PDF PFT performed at:->[facility]- CAM-8D Procedure:->Spirometry us Caise Lowe MD PhD PFT ORDERABLES Final Resul t documented in this encounter Visit Diagnoses Diagnosis Moderate persistent asthma, unspecified whether complicated documented in this encounter Care Teams Wireless Development Manager Relationship Specialty [place] [address] [address] [address] PCP - General Internal Medicine 05/04/19 documented as of this encounter
--- OUTSIDE RECORDS SUMMARY | 2024-07-12 15:38 | XMS_ITS | Encounter Summary ---
Author Organization [facility] Address [address] [place] [address] Phone Care Team Providers Care Attendant Campground Name Role Phone Zunilda Coles MD Primary Care Provider + Encounter Details Date Type Department Care Team (Late st Contact Info) Description 04/23/2019 Orders Only [facility] Pulmonary [address] [facility] Advanced Medicine 8th [place] [address] [place] [address] Casie Lowe MD PhD [address] [facility] [address] [place] [address] Social History Tobacco Use Types Packs/Day Years Used Date Smoking Tobacco: Never Smokeless Tobacco: Never Comments Unknown Sex and Gender Information Value Date Recorded Sex Assigned at Not on file 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 Gender Identity Female 10/30/2021 8:16 AM CDT Sexual Orientation Not on file documented as of this encounter Ordered Prescriptions Prescription Sig Dispense Quantity Refills Last Filled Start Date End Date albuterol HFA (PROAIR HFA) 90 mcg/actuation inhaler Inhale 2 puffs every 6 (six) hours as needed for wheezing 1 Inhaler 5 04/23/2019 0 budesonide-formote rol (SYMBICORT) 160-4.5 mcg/actuation inhaler Inhale 2 puffs 2 (two) times a day 1 Inhaler 5 04/23/2019 0 documented in this encounter Plan of Treatment Not on file documented as of this encounter Visit Diagnoses Not on filedocumented in this encounter Discontinued Medications Medication Sig Discontinue Reason Start Date End Da te budesonide-formoterol (SYMBICORT) 160-4.5 mcg/actuation inhaler Inhale 2 puffs 2 (two) times a day. Reorder 04/14/2018 04/23/2019 albuterol HFA (PROAIR HFA) 90 mcg/actuation inhaler Inhale 2 puffs every 6 (six) hours as needed for wheezing. Reorder 04/14/2018 04/23/2019 documented as of this encounter Care Teams Attendant Campground Relationship Specialty Start Date End Date Zunilda Coles MD [address] [place] [address] PCP - General 06/03/17 05/03/19 documented as of this encounter
--- OUTSIDE RECORDS SUMMARY | 2024-07-12 15:38 | XMS_ITS | Encounter Summary ---
Author Organization [facility] Address [address] [place] [address] Phone Care Team Providers Care Software Test Engineer Name Role Phone Minnie Mcneil MD Primary Care Provider [phone] Encounter Details Date Type Department Care Team (Late st Contact Info) Description 02/16/2020 Orders Only [facility] Pulmonary [address] [facility] Advanced Medicine 8th [place] [address] [place] [address] Casie Lowe MD PhD [address] [facility] [address] [place] [address] Social History Tobacco Use Types Packs/Day Years Used Date Smoking Tobacco: Never Smokeless Tobacco: Never Comments Unknown Sex and Gender Information Value Date Recorded Sex Assigned at Not on file 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 Sex Female 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 Gender Identity Female 10/30/2021 8:16 AM CDT Sexual Orientation Not on file documented as of this encounter Ordered Prescriptions Prescription Sig Dispense Quantity Refills Last Filled Start Date End Date budesonide-formote roL (Symbicort) 160-4.5 mcg/actuation inhaler Inhale 2 puffs 2 (two) times a day 1 Inhaler 5 02/16/2020 03/02/2021 documented in this encounter Plan of Treatment Not on file documented as of this encounter Visit Diagnoses Not on filedocumented in this encounter Discontinued Medications Medication Sig Discontinue Reason Start Date End Da te budesonide-formoterol (SYMBICORT) 160-4.5 mcg/actuation inhaler Inhale 2 puffs 2 (two) times a day Reorder 04/23/2019 02/16/2020 documented as of this encounter Care Teams Software Test Engineer Relationship Specialty [place] [address] [id number] PCP - General Internal Medicine 05/04/19 documented as of this encounter
--- OUTSIDE RECORDS SUMMARY | 2024-07-12 15:38 | XMS_ITS | Encounter Summary ---
Author Organization [facility] Address [address] [facility] [address] [place] [address] Phone Care Team Providers Care Ground Instructor Basic Name Role Phone Zunilda Coles MD Primary Care Provider + Reason for Referral * (Routine) - Closed Specialty Diagnoses / Procedures Referred By Krystina jansen Referred To Contact Diagnoses Asthma, unspecified asthma severity, unspecified whether complicated, unspecified whether persistent Procedures Pulmonary Function Test -[facility] Adult PFT Lab- CAM-8D; Spirometry Casie Lowe MD PhD Phone: tel: fax: Referral ID Status Reason Start Date Expiration Date Visits Re quested Visits Authorized [id number] Closed 05/01/2019 11/09/2020 1 1 Encounter Details Date Type Department Care Team (Late st Contact Info) Description 05/01/2019 Orders Only [facility] Pulmonary [address] [facility] Advanced Medicine 8th [place] [address] [place] [address] Casie Lowe MD PhD [address] [facility] [address] [place] [address] Asthma, unspecified asthma severity, unspecified whether complicated, unspecified whether persistent (Primary Dx) Social History Tobacco Use Types Packs/Day Years Used Date Smoking Tobacco: Never Smokeless Tobacco: Never Comments Unknown Sex and Gender Information Value Date Recorded Sex Assigned at Not on file 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 Gender Identity Female 10/30/2021 8:16 AM CDT Sexual Orientation Not on file documented as of this encounter Plan of Treatment Not on file documented as of this encounter Results * Pulmonary Function Test - (05/04/2019 3:12 PM CDT) FVC PRED 3.73 0.05 - 9.99 Liters [facility] FVC PRE 4.38 0 - 12 Liters [facility] FVC %PRE PRED 117 0 - 300 % [facility] FEV1 PRED 3.24 0.05 - 9.99 Liters [facility] FEV1 PRE 3.62 0 - 12 Liters [facility] FEV1 %PRE PRED 112 0 - 300 % [facility] FEV1/FVC PRED 87 1 - 99 % [facility] FEV1/FVC PRE 83 0 - 12 % [facility] LCV41-35% PRED 3.81 0 - 12 L/sec [facility] PME80-43% PRE 3.61 0 - 12 L/sec [facility] VUS61-00% %PRE PRED 95 0 - 300 % [facility] FEF75% PRED 1.83 0 - 300 L/sec [facility] FEF75% PRE 1.75 0 - 12 L/sec [facility] FEF75% %PRE PRED 96 % [facility] PEF PRED 6.55 0 - 18 L/sec [facility] PEF PRE 7.96 0 - 18 L/sec [facility] PEF %PRE PRED 121 0 - 300 % [facility] PIF PRE 1.72 0 - 18 L/sec [facility] VC PRED 3.57 0.05 - 9.99 Liters [facility] TLC PRED 4.96 0.05 - 11.99 Liters [facility] RV PRED 1.21 0.05 - 9.99 Liters [facility] RV/TLC PRED 24 0 - 300 % [facility] FRC N2 PRED 2.28 0.05 - 9.99 Liters [facility] FRC PL PRED 2.69 0.05 - 9.99 Liters [facility] ERV PRED 1.26 0.05 - 9.99 Liters [facility] DLCO PRED 29.5 0.05 - 99.99 mL/mmHg/min [facility] DL ADJ PRED 29.5 1 - 2 mL/mmHg/min [facility] DLCO/VA PRED 6.00 mL/mHg/min/ L [facility] DL/VA ADJ PRED 4.75 mL/mHg/min/ L [facility] RAW PRED 1.43 cmH2O/L/sec [facility] GAW PRED 0.644 L/sec/cmH2O [facility] SRAW PRED 3.84 cmH2O/L/s/L [facility] SGAW PRED 0.261 L/s/cmH2O/L [facility] Anatomical Region Laterality Modality PFT 05/04/2019 3:08 PM CDT Narrative 05/06/2019 5:50 PM CDT SEE PDF us Casie Lowe MD PhD PFT ORDERABLES Final Resul t documented in this encounter Visit Diagnoses Diagnosis Asthma, unspecified asthma severity, unspecified whether complicated, unspecified whether persistent- Primary Asthma, unspecified asthma severity, unspecified whether complicated, unspecified whether persistent documented in this encounter Care Teams Ground Instructor Basic Relationship Specialty Start Date End Date Zunilda Coles MD [address] [place] [address] PCP - General 06/03/17 05/03/19 documented as of this encounter
--- OUTSIDE RECORDS SUMMARY | 2024-07-12 15:38 | XMS_ITS | Encounter Summary ---
Author Organization [facility] Address [address] [facility] [address] [place] [address] Phone Care Team Providers Care Ladle Repairman Name Role Phone Minnie Mcneil MD Primary Care Provider [phone] Reason for Referral * (Routine) - Closed Specialty Diagnoses / Procedures Referred By Krystina jansen Referred To Contact Diagnoses Moderate persistent asthma, unspecified whether complicated Procedures Pulmonary Function Test -[facility] Adult PFT Lab- CAM-8D; Spirometry Cristina Hickey MD Phone: tel: fax: Referral ID Status Reason Start Date Expiration Date Visits Re quested Visits Authorized [id number] Closed 05/04/2019 11/12/2020 1 1 Encounter Details Date Type Department Care Team (Late st Contact Info) Description 05/04/2019 4:00 PM CDT Office Visit [facility] Pulmonary [address] [facility] Advanced Medicine 8th [place] [address] [place] [address] Casie Lowe MD PhD [address] [facility] [address] [place], [place] [id number] Moderate persistent asthma, unspecified whether complicated (Primary Dx) Social History Tobacco Use Types Packs/Day Years Used Date Smoking Tobacco: Never Smokeless Tobacco: Never Comments Unknown Sex and Gender Information Value Date Recorded Sex Assigned at Not on file 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 Gender Identity Female 10/30/2021 8:16 AM CDT Sexual Orientation Not on file documented as of this encounter Last Filed Vital Signs Vital Sign Reading Time Taken Comments Blood Pressure 119/81 05/04/2019 3:24 PM CDT Pulse 70 05/04/2019 3:24 PM CDT Temperature 36.7 ??C (98.1 ??F) 05/04/2019 3:24 PM CD T Respiratory Rate 14 05/04/2019 3:24 PM CDT Oxygen Saturation 99% 05/04/2019 3:24 PM CDT Inhaled Oxygen Concentration - - Weight 63.5 kg (140 lb) 05/04/2019 3:24 PM CDT Height 160.5 cm (5' 3.2 ) 05/04/2019 3:24 PM CDT Body Mass Index 24.64 05/04/2019 3:24 PM CDT documented in this encounter Patient Instructions * Patient Instructions* Cristina Hickey MD - 05/04/2019 4:00 PM CDT Start using your Symbicort 160 mcg 2 puffs twice a day Start using Flonase 2 sprays each nostil daily When your symptoms start to improve call us and we can wean down your symbicort documented in this encounter Ordered Prescriptions Prescription Sig Dispense Quantity Refills Last Filled Start Date End Date fluticasone propionate (FLONASE) 50 mcg/actuation nasal spray Administer 2 sprays into each nostril daily 16 g 6 05/04/2019 2 documented in this encounter Progress Notes * Cristina Hickey MD - 05/04/2019 12:00 AM CDT PATIENT NAME: ROYER GONZALEZ : 1995 VIJAY: 05/04/2019 PROBLEM LIST: 1. Childhood asthma. 2. Seasonal allergies. 3. Vocal cord dysfunction. INTERVAL HISTORY: Ms. Gonzalez is a 24-year-old female with a history of moderate persistent asthma and vocal cord dysfunction, who [facility]. We last saw Ms. Hari Luu 2017, and at that time she had her Symbicort decreased to 160 two puffs once a day. She haddone relatively well up until a few weeks ago, when the weather changed and she started having increasing postnasal drip and sinus congestion. At that time, she noticed that she was having more shortness of breath mostly in the evening time, and using her albuterol approximately 3 to 4 times a weekand waking up short of breath approximately 3 to 4 times a week. She denies any wheezing or coughing. She has continued to use her vocal cord therapy exercises. She has not had any antibiotics or steroids since we last saw her. [Exacerbation] No exacerbation in 2019 The remainder of the Past Medical History, Medications, Allergies, Social History, Family History, and Review of Systems are as noted on the previous visit from 04/14/2018. MEDICATIONS: 1. Albuterol 90 mcg 2 puffs every 4 hours as needed. 2. Symbicort 80/4.5. 3. Cetirizine 10 mg daily. 4. Vitamin D 50,000 international units 1 tablet weekly. 5. Multivitamin with vitamin D. PHYSICAL EXAMINATION: Vital Signs: Blood pressure 119/81, pulse of 70, respiratory rate 14, temperature 36.7, SpO2 of 99%, BMI 24.7. General: No acute distress. Speaking in full sentences. HEENT: Normocephalic, atraumatic. Pupils equal, round, reactive to light. Sclerae clear. Conjunctivae pink, not injected. Oropharynx clear with no ulcerations or lesions. TMs clear with no erythema or drainage. Neck: Supple. Trachea midline. No palpable cervical or supraclavicular lymphadenopathy. No sinus pressure or tenderness to palpation. Nares are patent bilaterally with some mild turbinate hypertrophyand bogginess, with some mucus in her left naris. Lungs: Clear to auscultation bilaterally. No rhonchi, wheezes, or rales. Mildly prolonged expiratory phase. No dullness to percussion. Cardiovascular: Regular rate and rhythm. No murmurs, rubs, or gallops. No S3, S4. Abdomen: Soft, nontender, nondistended. Normoactive bowel sounds. Musculoskeletal: No clubbing, cyanosis, or edema. Skin: No rashes, bruises, or petechiae. Neurologic: Grossly nonfocal. DATA: 1. Pulmonary function testing: FEV1/FVC of 83 with an FEV1 of 3.62 L, which is 112% of reference, with an FVC of 4.38 L, which is 117% of reference. Taken together, these pulmonary function tests areessentially normal and borderline decreased from her previous pulmonary function test. 2. Asthma control score of 19, previously 24. ASSESSMENT AND PLAN: Ms. Gonzalez is a 24-year-old female with a history of moderate persistent asthma and allergic rhinitis, as well as vocal cord dysfunction, who is coming into the clinic for routine follow-up. 1. Moderate persistent asthma. She did well over the past year, but now with slight worsening over the past few weeks due to seasonal changes. Increase Symbicort to 2 puffs twice a day as well as start using Flonase 2 sprays each nostril once daily and call into the when her symptoms start to improve and we can start to wean her Symbicort at that time after being on two puff bid for at least 4 weeks. Continue to use her albuterol 2 puffs every 4 to 6 hours as needed and before exercise. 2. Vaccinations. Ms. Gonzalez already had her influenza vaccine and declined her pneumococcal vaccination. ELECTRONICALLY SIGNED - 05/05/2019 08:19 PM Cristina Hickey M.D. Pulmonary & Critical Care Fellow I have seen and examined the patient and agree with the findings and plan of care as documented by and/or discussed with CRISTINA HICKEY MD and I edited this note. ELECTRONICALLY SIGNED - 05/06/2019 02:39 PM Casie Lowe M.D. Attending AM/KCS/mt cc: SAYDA CAMARILLO MD [address] [facility] [address], [place] [address] / ELIOT GUZMAN RN [address] [facility] [address] [place] [address] documented in this encounter Plan of Treatment [...] and %HbO2 is age dependent. However, the [facility] Pulmonary Function Laboratory defines hypoxemia as a [...] 6:45 AM CDT SEE PDF PFT performed at:->[facility]8DProcedure:->Spirometry Site: [facility], [address] [place] [address] ID: [id number] ??Name: ROYER TANNER Visit Date: 05/02/2020 ??Second ID: [id number] Reviewing Doctor: RAS LAUREN MD Proposal Manager: Mary Mathew RRT Age: 25 ??: 1995 ??Sex: Female ??Race: Height: 63.20 ??Inches ??Weight: 162.00 ??Lbs ??BSA: 1.77 Order IDs: [id number] Requested Test(s): PULMONARY FUNCTION TEST^PFT performed at:->[facility] Adult PFT Lab- [facility]8D^Procedure:->Spirometry Diagnosis: Asthma Medications: Symbicort 630 Post Test Comments: INTERPRETATION: Spirometry (Flow-Volume Curve/Mechanics): The flow-volume curve is normal. ??The shape of the inspiratory limb of the flow-volume loop is flattened, suggestive of a variable extrathoracic airway obstruction or submaximal effort. Cristina Hickey MD PFT ORDERABLES Final Result documented in this encounter Visit Diagnoses Diagnosis Moderate persistent asthma, unspecified whether complicated- Primary Moderate persistent asthma, unspecified whether complicated documented in this encounter Discontinued Medications Medication Sig Discontinue Reason Start Date End Da te cholecalciferol (VITAMIN D3) 2,000 unit capsule Take by mouth. 05/04/2019 documented as of this encounter Care Teams Ladle Repairman Relationship Specialty [place] [address] [address] [address] PCP - General Internal Medicine 05/04/19 documented as of this encounter
--- OUTSIDE RECORDS SUMMARY | 2024-07-12 15:38 | XMS_ITS | Encounter Summary ---
Author Organization [facility] Address [address] [place] [address] Phone Care Team Providers Care X Ray Nurse Name Role Phone Minnie Mcneil MD Primary Care Provider [phone] Encounter Details Date Type Department Care Team (Late st Contact Info) Description 03/03/2021 Orders Only [facility] Pulmonary [address] [facility] Advanced Medicine 8th [place] [address] [place] [address] Casie Lowe MD PhD [address] [facility] [address] [place] [address] Social History Tobacco Use Types Packs/Day Years Used Date Smoking Tobacco: Never Smokeless Tobacco: Never Comments Unknown Sex and Gender Information Value Date Recorded Sex Assigned at Not on file 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 Gender Identity Female 10/30/2021 8:16 AM CDT Sexual Orientation Not on file documented as of this encounter Ordered Prescriptions Prescription Sig Dispense Quantity Refills Last Filled Start Date End Date budesonide-formote roL (Symbicort) 160-4.5 mcg/actuation inhaler Inhale 2 puffs 2 (two) times a day 9600 mcg of budesonide 5 03/03/2021 documented in this encounter Plan of Treatment Not on file documented as of this encounter Visit Diagnoses Not on filedocumented in this encounter Discontinued Medications Medication Sig Discontinue Reason Start Date End Da te budesonide-formoteroL (Symbicort) 160-4.5 mcg/actuation inhaler Inhale 2 puffs 2 (two) times a day Reorder 03/02/2021 03/03/2021 documented as of this encounter Care Teams X Ray Nurse Relationship Specialty [place] [address] [address] PCP - General Internal Medicine 05/04/19 documented as of this encounter
--- OUTSIDE RECORDS SUMMARY | 2024-07-12 15:38 | XMS_ITS | Encounter Summary ---
Author Organization [facility] Address [address] [facility] [address] [place] [address] Phone Care Team Providers Care Qa Test Analyst Name Role Phone Minnie Mcneil MD Primary Care Provider [phone] Reason for Referral * (Routine) - Closed Specialty Diagnoses / Procedures Referred By Krystina jansen Referred To Contact Diagnoses Moderate persistent asthma, unspecified whether complicated Procedures Pulmonary Function Test -[facility] Adult PFT Lab- CAM-8D; Spirometry Casie Lowe MD PhD [address] [facility] [address] [place] [address] Phone: tel: fax: Referral ID Status Reason Start Date Expiration Date Visits Re quested Visits Authorized [id number] Closed 03/02/2021 04/01/2022 1 1 Encounter Details Date Type Department Care Team (Late st Contact Info) Description 03/02/2021 Orders Only [facility] Pulmonary [address] [facility] Advanced Medicine 8th [place] [address] [place] [address] Casie Lowe MD PhD [address] [facility] [facility] [address] [place] [address] Moderate persistent asthma, unspecified whether complicated (Primary Dx) Social History Tobacco Use Types Packs/Day Years Used Date Smoking Tobacco: Never Smokeless Tobacco: Never Comments Unknown Sex and Gender Information Value Date Recorded Sex Assigned at Not on file 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 Gender Identity Female 10/30/2021 8:16 AM CDT Sexual Orientation Not on file documented as of this encounter Plan of Treatment Not on file documented as of this encounter Results * Pulmonary Function Test - (10/30/2021 1:46 PM CDT) FVC PRE 4.39 L [facility] FVC %PRE PRED 118 % [facility] FEV1 PRE 3.58 L [facility] FEV1 %PRE PRED 111 % [facility] FEV1/FVC PRE 81.5 % [facility] Anatomical Region Laterality Modality PFT 10/30/2021 1:39 PM CDT Narrative 11/02/2021 7:28 AM CDT SEE PDF PFT performed at:->[facility] Adult PFT Lab- CAM-8D Procedure:->Spirometry us Casie Lowe MD PhD PFT ORDERABLES Final Resul t documented in this encounter Visit Diagnoses Diagnosis Moderate persistent asthma, unspecified whether complicated- Primary Moderate persistent asthma, unspecified whether complicated documented in this encounter Care Teams Qa Test Analyst Relationship Specialty [place] [address] [address] PCP - General Internal Medicine 05/04/19 documented as of this encounter
--- OUTSIDE RECORDS SUMMARY | 2024-07-12 15:38 | XMS_ITS | Encounter Summary ---
Author Organization [facility] Address [address] [place] [address] Phone Care Team Providers Care Assembler Equipment Name Role Phone Zunilda Coles MD Primary Care Provider + Minnie Mcneil MD Primary Care Provider [phone] Tabby Hopkins RN Unavailable Unavailabl e Encounter Details Date Type Department Care Team (Latest Contact Info) Description 09/11/2017 Orders Only [facility] CONVERSION Scanning, Provider Social History Tobacco Use Types Packs/Day Years Used Date Smoking Tobacco: Never Comments Unknown Sex and Gender Information Value Date Recorded Sex Assigned at Not on file 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 Gender Identity Female 10/30/2021 8:16 AM CDT Sexual Orientation Not on file documented as of this encounter Plan of Treatment Not on file documented as of this encounter Procedures Procedure Name Priority Date/Time Associated Diagnosis Comments PULMONARY FUNCTION TEST (PFT) 09/11/2017 1:22 PM GROUND WATER PUMP INSTALLER documented in this encounter Results * PULMONARY FUNCTION TEST (PFT) (09/11/2017 1:22 PM GROUND WATER PUMP INSTALLER) Anatomical Region Laterality Modality PFT us Provider Scanning PFT ORDERABLES Edited Result - Final documented in this encounter Visit Diagnoses Not on filedocumented in this encounter Care Teams Assembler Equipment Relationship Specialty Start Date End Date Zunilda Coles MD [address] [facility] [place] [address] PCP - General 06/03/17 05/03/19 [place] [address] [address] [address] PCP - General Internal Medicine 05/04/19 Tabby Hopkins, RN Registered Nurse Pulmonary Disease 04/29/23 documented as of this encounter
--- OUTSIDE RECORDS SUMMARY | 2024-07-12 15:38 | XMS_ITS | Encounter Summary ---
Author Organization [facility] Address [address] [place] [address] Phone Care Team Providers Care Tax Expert Name Role Phone Minnie Mcneil MD Primary Care Provider [phone] Encounter Details Date Type Department Care Team (Late st Contact Info) Description 03/06/2021 Telephone [facility] Pulmonary [address] [facility] 8th [place] [address] [place] [address] Malorie Eisenberg CMA Social History Tobacco Use Types Packs/Day Years Used Date Smoking Tobacco: Never Smokeless Tobacco: Never Comments Unknown Sex and Gender Information Value Date Recorded Sex Assigned at Not on file 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 for pt. to see Dr. Lowe on 10/30/21 at 2:00pm with Louann dexter documented in this encounter Plan of Treatment Not on file documented as of this encounter Visit Diagnoses Not on filedocumented in this encounter Care Teams Tax Expert Relationship Specialty [place] [address] [address] [address] PCP - General Internal Medicine 05/04/19 documented as of this encounter
--- OUTSIDE RECORDS SUMMARY | 2024-07-12 15:38 | XMS_ITS | Encounter Summary ---
Author Organization [facility] Address [address] [place] [address] Phone Care Team Providers Care Field Marketing Director Name Role Phone Minnie Mcneil MD Primary Care Provider [phone] Reason for Visit * Reason Onset Date Comments Med Refill 02/15/2020 Encounter Details Date Type Department Care Team (Late st Contact Info) Description 02/15/2020 Documentation [facility] Pulmonary [address] [facility] Advanced Medicine 8th [place] [address] [place] [address] Rosalind Anderson, [address] [place] [address] Med Refill Social History Tobacco Use Types Packs/Day Years Used Date Smoking Tobacco: Never Smokeless Tobacco: Never Comments Unknown Sex and Gender Information Value Date Recorded Sex Assigned at Not on file 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 Refill called in to [facility] in [facility], budesonide-formoterol (SYMBICORT) 160- 4.5 mcg/actuation inhaler 1 dispensed, 5 refills documented in this encounter Plan of Treatment Not on file documented as of this encounter Visit Diagnoses Not on filedocumented in this encounter Care Teams Field Marketing Director Relationship Specialty [place] [address] [address] PCP - General Internal Medicine 05/04/19 documented as of this encounter
--- OUTSIDE RECORDS SUMMARY | 2024-07-12 15:38 | XMS_ITS | Encounter Summary ---
Author Organization [facility] Address [address] [place] [address] Phone Care Team Providers Care Fire Technician Name Role Phone Zunilda Coles MD Primary Care Provider + Reason for Referral * Diagnostic Lab (Routine) - Closed Specialty Diagnoses / Procedures Referred By Krystina jansen Referred To Contact Pulmonology Diagnoses Moderate persistent asthma without complication Procedures Pulmonary Function Test -[facility] Adult PFT Lab- CAM-8D; Spirometry Dann Vega MD Phone: tel: fax: Referral ID Status Reason Start Date Expiration Date Visits Re quested Visits Authorized [id number] Closed 11/15/2017 11/15/2018 99 99 Encounter Details Date Type Department Care Team (Late st Contact Info) Description 11/15/2017 Orders Only [facility] Pulmonary [address] [facility] [address] [place] [address] Dann Vega MD [address] [place] [address] Moderate persistent asthma without complication (Primary Dx) Social History Tobacco Use Types Packs/Day Years Used Date Smoking Tobacco: Never Comments Unknown Sex and Gender Information Value Date Recorded Sex Assigned at Not on file 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 Gender Identity Female 10/30/2021 8:16 AM CDT Sexual Orientation Not on file documented as of this encounter Plan of Treatment Not on file documented as of this encounter Results * Pulmonary Function Test -[facility] Adult PFT Lab- CAM-8D; Spirometry (04/14/2018 3:36 PM CDT) FVC PRED 3.73 0.05 - 9.99 Liters [facility] FVC PRE 4.50 0 - 12 Liters [facility] FVC %PRE PRED 121 0 - 300 % [facility] FEV1 PRED 3.25 0.05 - 9.99 Liters [facility] FEV1 PRE 3.81 0 - 12 Liters [facility] FEV1 %PRE PRED 117 0 - 300 % [facility] FEV1/FVC PRED 88 1 - 99 % [facility] FEV1/FVC PRE 85 0 - 12 % [facility] RMB83-80% PRED 3.84 0 - 12 L/sec [facility] ETU18-49% PRE 4.02 0 - 12 L/sec [facility] STD67-78% %PRE PRED 105 0 - 300 % [facility] FEF75% PRED 1.87 0 - 300 L/sec [facility] FEF75% PRE 2.30 0 - 12 L/sec [facility] FEF75% %PRE PRED 123 % [facility] PEF PRED 6.58 0 - 18 L/sec [facility] PEF PRE 8.94 0 - 18 L/sec [facility] PEF %PRE PRED 136 0 - 300 % [facility] PIF PRE 3.15 0 - 18 L/sec [facility] VC PRED 3.58 0.05 - 9.99 Liters [facility] TLC PRED 4.96 0.05 - 11.99 Liters [facility] RV PRED 1.19 0.05 - 9.99 Liters [facility] RV/TLC PRED 24 0 - 300 % [facility] FRC N2 PRED 2.28 0.05 - 9.[address] [facility] FRC [address] PRED 2.68 0.05 - 9.99 Liters [facility] ERV PRED 1.27 0.05 - 9.99 Liters [facility] DLCO PRED 29.7 0.05 - 99.99 mL/mmHg/min [facility] DL ADJ PRED 29.7 1 - 2 mL/mmHg/min [facility] DLCO/VA PRED 6.03 mL/mHg/min/ L [facility] DL/VA ADJ PRED 4.85 mL/mHg/min/ L [facility] RAW PRED 1.43 cmH2O/L/sec [facility] GAW PRED 0.644 L/sec/cmH2O [facility] SRAW PRED 3.84 cmH2O/L/s/L [facility] SGAW PRED 0.261 L/s/cmH2O/L [facility] Anatomical Region Laterality Modality PFT 04/14/2018 3:31 PM CDT Narrative 04/17/2018 1:16 PM CDT See pdf us Dann Vega MD PFT ORDERABLES Final Result documented in this encounter Visit Diagnoses Diagnosis Moderate persistent asthma without complication- Primary Moderate persistent asthma without complication documented in this encounter Care Teams Fire Technician Relationship Specialty Start Date End Date Zunilda Coles MD [address] [place] [address] PCP - General 06/03/17 05/03/19 documented as of this encounter
--- OUTSIDE RECORDS SUMMARY | 2024-07-12 15:38 | XMS_ITS | Encounter Summary ---
Author Organization [facility] Address [address] [facility] [address] [place] [address] Phone Care Team Providers Care Sewing Machine Operator Plastic Zipper Name Role Phone Minnie Mcneil MD Primary Care Provider [phone] Tabby Hopkins RN Unavailable Unavailabl e Reason for Referral * Pulmonology (Routine) - Closed Specialty Diagnoses / Procedures Referred By Krystina jansen Referred To Contact Pulmonary Disease Diagnoses Moderate persistent asthma, unspecified whether complicated Procedures Pulmonary Function Test -[facility]FT [facility]- CAM-8D; Spirometry Casie Lowe MD PhD [address] [place] [address] Phone: tel: fax: Referral ID Status Reason Start Date Expiration Date Visits Re quested Visits Authorized [id number] Closed 10/30/2021 1 1 Reason for Visit * Pulmonology (Routine) - Closed Specialty Diagnoses / Procedures Referred By Contsonal jansen Referred To Contact Pulmonary Disease Diagnoses Moderate persistent asthma, unspecified whether complicated Procedures Pulmonary Function Test -[facility]- CAM-8D; Spirometry Casie Lowe MD PhD [address] [place] [address] Phone: tel: fax: Referral ID Status Reason Start Date Expiration Date Visits Re quested Visits Authorized [id number] Closed 10/30/2021 1 1 Encounter Details Date Type Department Care Team (Latest Contact Info) Description 04/29/2023 12:29 PM CDT - 04/29/2023 11:59 PM CDT Hospital Encounter [facility] [address] [facility] [address] [place] [address] Moderate persistent asthma, unspecified whether complicated Discharge Disposition: Discharge to home or self care Social History Tobacco Use Types Packs/Day Years Used Date Smoking Tobacco: Never Smokeless Tobacco: Never Comments Unknown Sex and Gender Information Value Date Recorded Sex Assigned at Not on file 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 Gender Identity Female 10/30/2021 8:16 AM CDT Sexual Orientation Not on file documented as of this encounter Medications at Time of Discharge albuterol HFA (PROVENTIL HFA,VENTOLIN HFA,PROAIR HFA) 90 mcg/actuation inhaler Inhale 2 puffs every 6 (six) hours as needed 12/30/2018 budesonide-formote roL (Symbicort) 160-4.5 mcg/actuation inhaler Inhale 2 puffs 2 (two) times a day 9600 mcg of budesonide 5 03/03/2021 cetirizine-pseudoe phedrine ER (ZyrTEC-D) 5-120 mg per 12 hr tablet Take 1 tablet by mouth every 12 (twelve) hours 07/27/2018 mv-min/iron/folic/ calcium/vitK (WOMEN'S MULTIVITAMIN ORAL) Take by mouth documented as of this encounter Discharge Disposition Disposition Code Departure Means Destination Discharge to home or self care documented in this encounter Plan of Treatment Not on file documented as of this encounter Procedures Procedure Name Priority Date/Time Associated Diagnosis Comments PULMONARY FUNCTION TEST (PFT) Routine 04/29/2023 12:40 PM CDT Moderate persistent asthma, unspecified whether complicated documented in this encounter Results * Pulmonary Function Test - (04/29/2023 12:40 PM CDT) FVC PRE 4.39 L [facility] FVC %PRE PRED 118 % [facility] FEV1 PRE 3.63 L [facility] FEV1 %PRE PRED 114 % [facility] FEV1/FVC PRE 82.6 % [facility] Anatomical Region Laterality Modality PFT 04/29/2023 12:3 5 PM CDT Impressions 04/29/2023 12:50 PM CDT There is no ventilatory defect. Compared with study dated 10/30/2021 , there has been no significant interval change. Len Owens MD The attending pulmonary physician certifies a physician presence in the [facility] during the administration of aerosolized bronchodilator. The attending pulmonary physician certifies that he/she has reviewed and interpreted the graphic and numerical data of this pulmonary function study and agrees with the written final report. The lower limit of normal for PO2 and %HbO2 is age dependent. However, the [facility] Pulmonary Function Laboratory defines hypoxemia as a PO2 <55 or a %HbO2 <89. Narrative 04/29/2023 12:50 PM CDT PFT performed at:->[facility] Adult PFT Lab- CAM-8D Procedure:->Spirometry Pulmonary Function Test Interpretation SPIROMETRY: The flow-volume curve is normal. ??The FEVI and FVC are normal. The FEVI to FVC ratio is normal. us Casie Lowe MD PhD PFT ORDERABLES Final Resul t documented in this encounter Visit Diagnoses Diagnosis Moderate persistent asthma, unspecified whether complicated documented in this encounter Care Teams Sewing Machine Operator Plastic Zipper Relationship Specialty [place] [id number] [address] PCP - General Internal Medicine 05/04/19 Tabby Hopkins, RN Registered Nurse Pulmonary Disease 04/29/23 documented as of this encounter
--- OUTSIDE RECORDS SUMMARY | 2024-07-12 15:38 | XMS_ITS | Referral Summary ---
Author Organization [facility] Address [address] [place] [address] Care Team Providers Care Court Attendant Name Role Phone Minnie Mcneil MD Primary Care Provider [phone] Tabby Hopkins RN Unavailable Unavailabl e Allergies No [...] symbicort. Called in refill of Symbicort to [facility] in [facility] as refill had not gone through. 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 HMO/PPO Address: [facility] [address] [place] [address] Att[address] Relationship Specialty [place] [address] [address] PCP - General Internal Medicine 05/04/19 Tabby Hopkins, RN Registered Nurse Pulmonary Disease 04/29/23
--- OUTSIDE RECORDS SUMMARY | 2024-07-12 15:38 | XMS_ITS | Encounter Summary ---
Author Organization [facility] Address [address] [place] [address] Phone Care Team Providers Care Pick And Shovel Man Name Role Phone Minnie Mcneil MD Primary Care Provider [phone] Encounter Details Date Type Department Care Team (Late st Contact Info) Description 03/02/2021 Orders Only [facility] Pulmonary [address] [facility] Advanced Medicine 8th [place] [address] [place] [address] Casie Lowe MD PhD [address] [facility] [address] [place] [address] Social History Tobacco Use Types Packs/Day Years Used Date Smoking Tobacco: Never Smokeless Tobacco: Never Comments Unknown Sex and Gender Information Value Date Recorded Sex Assigned at Not on file 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 Gender Identity Female 10/30/2021 8:16 AM CDT Sexual Orientation Not on file documented as of this encounter Ordered Prescriptions Prescription Sig Dispense Quantity Refills Last Filled Start Date End Date budesonide-formote roL (Symbicort) 160-4.5 mcg/actuation inhaler Inhale 2 puffs 2 (two) times a day 1 Inhaler 2 03/02/2021 03/03/2021 documented in this encounter Plan of Treatment Not on file documented as of this encounter Visit Diagnoses Not on filedocumented in this encounter Discontinued Medications Medication Sig Discontinue Reason Start Date End Da te budesonide-formoteroL (Symbicort) 160-4.5 mcg/actuation inhaler Inhale 2 puffs 2 (two) times a day Reorder 02/16/2020 03/02/2021 documented as of this encounter Care Teams Pick And Shovel Man Relationship Specialty [place] [address] [address] PCP - General Internal Medicine 05/04/19 documented as of this encounter
--- OUTSIDE RECORDS SUMMARY | 2024-07-12 15:38 | XMS_ITS | Encounter Summary ---
Author Organization [facility] Address [address] [place] [address] Phone Care Team Providers Care Tack Maker Name Role Phone Minnie Mcneil MD Primary Care Provider [phone] Encounter Details Date Type Department Care Team (Late st Contact Info) Description 05/02/2020 2:00 PM CDT Office Visit [facility] Pulmonary [address] [facility] Advanced Medicine 8th [place] [address] [place] [address] Casie Lowe MD PhD [address] [facility] [address] [place] [address] Moderate persistent asthma, unspecified whether complicated (Primary Dx) Social History Tobacco Use Types Packs/Day Years Used Date Smoking Tobacco: Never Smokeless Tobacco: Never Comments Unknown Sex and Gender Information Value Date Recorded Sex Assigned at Not on file 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 Sex Female 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 Gender Identity Female 10/30/2021 8:16 AM CDT Sexual Orientation Not on file documented as of this encounter Last Filed Vital Signs Vital Sign Reading Time Taken Comments Blood Pressure 130/89 05/02/2020 1:48 PM CDT Pulse 68 05/02/2020 1:48 PM CDT Temperature 36.4 ??C (97.5 ??F) 05/02/2020 1:48 PM CD T Respiratory Rate 18 05/02/2020 1:48 PM CDT Oxygen Saturation 99% 05/02/2020 1:48 PM CDT Inhaled Oxygen Concentration - - Weight 73.5 kg (162 lb) 05/02/2020 1:48 PM CDT Height 161.3 cm (5' 3.5 ) 05/02/2020 1:48 PM CDT Body Mass Index 28.25 05/02/2020 1:48 PM CDT documented in this encounter Patient Instructions * Patient Instructions* Casie Lowe MD PhD - 05/02/2020 2:00 PM CDT Continue symbicort 2 puff once a day As needed albuterol documented in this encounter Progress Notes * Guilherme Ritchie MD - 05/02/2020 2:00 PM CDT Asthma clinic follow-up visit PROBLEM LIST: 1. Moderate persistent asthma, childhood onset. On Symbicort 160mcg, currently taking once daily. 2. Allergic rhinitis, on Zyrtec. 3. Vocal Cord dysfunction, diagnosed in 06/2017, status post teaching/training by speech pathology Interval history: Ms. Tanner is a 25 yo female with a history of moderate persistent asthma, allergic rhinitis, and VCD who presents for follow up. She was last seen in 04/2019. At that time, her asthma control was worse, so her Symbicort 160mcg two puffs was increased in frequency from daily back to twice daily atthat time. Flonase was added. She did not like the Flonase and only used it briefly, but she continues to use Zyrtec. She was feeling better in 07/2019, so she decreased her Symbicort dosage back downto once daily and tolerated this well. She has not had any exacerbations since her last visit. She denies dyspnea, cough, wheezing, or nighttime symptoms. She goes to the gym four to five days every week where she either uses the TM for 30 mins (going for 2 miles) or uses weights. She takes a dose of albuterol before exercise but is otherwise not requiring prn inhalers. 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 Regarding her vocal cord dysfunction, she is still doing the exercises from speech pathology and feels that they are still helpful. Albuterol use- up to once daily prior to exercise. Nocturnal symptoms- none Exacerbations- none in 2019 or 2020 ACT score 22, up from 19 at last visit Review of Systems: All other systems reviewed and negative other than per interval history above. Medications: Current Outpatient Medications: ??? albuterol HFA (Ventolin HFA) 90 mcg/actuation inhaler, Inhale 2 puffs every 6 (six) hours as needed, Disp: , Rfl: ??? budesonide-formoteroL (Symbicort) 160-4.5 mcg/actuation inhaler, Inhale 2 puffs 2 (two) times a day, Disp: 1 Inhaler, Rfl: 5 ??? cetirizine-pseudoephedrine ER (ZyrTEC-D) 5-120 mg per 12 hr tablet, Take 1 tablet by mouth every 12 (twelve) hours, Disp: , Rfl: ??? ergocalciferol (VITAMIN D) 50,000 unit capsule, once a week., Disp: , Rfl: ??? geriatric multivitamin-min tablet, Take 1 tablet by mouth daily., Disp: , Rfl: ??? predniSONE (DELTASONE) 10 mg tablet, daily., Disp: , Rfl: ??? Sprintec, 28, 0.25-35 mg-mcg per tablet, Take 1 tablet by mouth daily, Disp: , Rfl: ??? albuterol ER (VOSPIRE ER) 4 mg 12 hr tablet, Inhale 2 puffs every 6 hours., Disp: , Rfl: ??? fluticasone propionate (FLONASE) 50 mcg/actuation nasal spray, Administer 2 sprays into each nostril daily, Disp: 16 g, Rfl: 6 Physical Exam: Vitals BP 130/89 Pulse 68 Temp 36.4 ??C (97.5 ??F) (Temporal) Resp 18 Ht 161.3 cm (5' 3.5 ) Wt 73.5 kg (162 lb) SpO2 99% BMI 28.25 kg/m?? Vitals reviewed. Constitutional: Well-developed and well-nourished. [...] FVC PRE Date Value Ref Range Status 05/04/2019 4.38 0 - 12 Liters Final 04/14/2018 4.50 0 - 12 Liters Final FVC %PRE PRED Date Value Ref Range Status 05/04/2019 117 0 - 300 % Final 04/14/2018 121 0 - 300 % Final FEV1 PRE Date Value Ref Range Status 05/04/2019 3.62 0 - 12 Liters Final 04/14/2018 3.81 0 - 12 Liters Final FEV1 %PRE PRED Date Value Ref Range Status 05/04/2019 112 0 - 300 % Final 04/14/2018 117 0 - 300 % Final FVC 4.35L or 117% pred FEV1 3.56L or 110% pred FEV/FVC 82% There is flattening of the inspiratory limb of the flow-volume loop, suggestive of variable extrathoracic airway obstruction or poor effort. There is otherwise no significant ventilatory defect. Whencompared to prior spirometry in 04/2019, there has been no significant interval change. Assessment 1. Moderate persistent asthma, childhood onset, well-controlled. She is currently taking Symbicort 160mcg once daily. We discussed possibly changing her Symbicort to prn, but she does not feel that she is ready. 2. Allergic rhinitis, on Zyrtec. She did not like Flonase but feels that her symptoms are adequately controlled. 3. Vocal Cord dysfunction, diagnosed in 06/2017, status post teaching/training by speech pathology.This may be the cause of the flattening of the inspiratory loop on spirometry. Recommendations 1. Continue Symbicort 160mcg 2 puffs daily. Continue albuterol prn and before exercise. 2. Continue Zyrtec. 3. Continue exercises for vocal cord dysfunction. 4. She already had the flu shot. 5. Return to clinic in 18 months with spirometry, or sooner if needed. Guilherme Ritchie MD Pulmonary and Critical Care Fellow Cosigned by Casie Lowe MD PhD at 05/04/2020 4:46 PM CDT Associated attestation - Casie Lowe MD PhD - 05/04/2020 4:46 PM CDT I have seen and examined the patient. I agree with the findings and plan of care as documented in the resident/fellow's note. 25 y/o female with child onset moderate asthma and VCD here for follow up. Noted to be doing well on once a day symbicort. Instructed to how to increase the dose if she become more symptomatic. PFT shows flattening of inspiratory loop, but this has been present since 2017 and she has known diagnosis of VCD. Evaluated by ENT in the past. Encouraged to do voice exercises. Follow up in 1.5 year. documented in this encounter Plan of Treatment Not on file documented as of this encounter Visit Diagnoses Diagnosis Moderate persistent asthma, unspecified whether complicated- Primary documented in this encounter Discontinued Medications Medication Sig Discontinue Reason Start Date End Da te albuterol HFA (PROAIR HFA) 90 mcg/actuation inhaler Inhale 2 puffs every 6 (six) hours as needed for wheezing Duplicate order 04/23/2019 05/02/2020 budesonide-formoteroL (Symbicort) 160-4.5 mcg/actuation inhaler 2 puffs 2 (two) times a day Duplicate order 02/25/2019 05/02/2020 cetirizine (ZyrTEC) 10 mg tablet Take by mouth. Duplicate order 05/02/2020 cetirizine (ZyrTEC) 10 mg tablet Duplicate order 05/02/2020 documented as of this encounter Historical Medications * This list may reflect changes made after this encounter. albuterol HFA (PROVENTIL HFA,VENTOLIN HFA,PROAIR HFA) 90 mcg/actuation inhaler Inhale 2 puffs every 6 (six) hours as needed 12/30/2018 cetirizine-pseudo ephedrine ER (ZyrTEC-D) 5-120 mg per 12 hr tablet Take 1 tablet by mouth every 12 (twelve) hours 07/27/2018 budesonide-formot Charly (Symbicort) 160-4.5 mcg/actuation inhaler 2 puffs 2 (two) times a day 02/25/2019 05/02/2020 Sprintec, 28, 0.25-35 mg-mcg per tablet Take 1 tablet by mouth daily 03/03/2020 11/03/2021 added in this encounter Care Teams Tack Maker Relationship Specialty [place] [address] [address] PCP - General Internal Medicine 05/04/19 documented as of this encounter
--- OUTSIDE RECORDS SUMMARY | 2024-07-12 15:38 | XMS_ITS | Encounter Summary ---
Author Organization [facility] Address [address] [facility] [address] [place] [address] Phone Care Team Providers Care Sole Molding Machine Operator Name Role Phone Minnie Mcneil MD Primary Care Provider [phone] Reason for Referral * Pulmonology (Routine) - Closed Specialty Diagnoses / Procedures Referred By Krystina jansen Referred To Contact Pulmonary Disease Diagnoses Moderate persistent asthma, unspecified whether complicated Procedures Pulmonary Function Test -[facility] Adult PFT Lab- CAM-8D; Spirometry Casie Lowe MD PhD [address] [facility] [address] [place] [address] Phone: tel: fax: Referral ID Status Reason Start Date Expiration Date Visits Re quested Visits Authorized [id number] Closed 10/30/2021 1 1 Encounter Details Date Type Department Care Team (Late st Contact Info) Description 10/30/2021 2:00 PM CDT Office Visit [facility] Pulmonary [facility] Medicine 8th [place] [address] [place] [address] Casie Lowe MD PhD [address] [facility] [address] [place] [address] Moderate persistent asthma, unspecified whether complicated (Primary Dx) Social History Tobacco Use Types Packs/Day Years Used Date Smoking Tobacco: Never Smokeless Tobacco: Never Comments Unknown Sex and Gender Information Value Date Recorded Sex Assigned at Not on file 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 Gender Identity Female 10/30/2021 8:16 AM CDT Sexual Orientation Not on file documented as of this encounter Last Filed Vital Signs Vital Sign Reading Time Taken Comments Blood Pressure 147/97 10/30/2021 1:47 PM CDT Pulse 75 10/30/2021 1:47 PM CDT Temperature 36.8 ??C (98.2 ??F) 10/30/2021 1:47 PM CD T Respiratory Rate 18 10/30/2021 1:47 PM CDT Oxygen Saturation 100% 10/30/2021 1:47 PM CDT Inhaled Oxygen Concentration - - Weight 74.8 kg (165 lb) 10/30/2021 1:47 PM CDT Height 160.5 cm (5' 3.2 ) 10/30/2021 1:47 PM CDT Body Mass Index 29.04 10/30/2021 1:47 PM CDT documented in this encounter Patient Instructions * Patient Instructions* Lorenzo Tan MD - 10/30/2021 2:00 PM CDT Take Symbicort as needed Call if worsening symptoms RTC in 1 year or sooner if needed documented in this encounter Progress Notes * Casie Lowe MD PhD - 10/30/2021 2:00 PM CDT Asthma clinic follow-up visit [...] follow up. She was last seen in 04/2020. At that time, she was doing well on Symbicort 2 puffs once daily. Still exercising doing weight lifting and running. Using zyrtec for allergies. No nasal sprays. Regarding her vocal cord dysfunction, she is still doing the exercises from speech pathology when needed and feels that they are still helpful. Albuterol use- none Nocturnal symptoms- none Exacerbations- none since 2019 ACT score 25 Review of Systems: All other systems reviewed and negative other than per interval history above. Medications: Current Outpatient Medications: ??? albuterol HFA (PROVENTIL HFA,VENTOLIN HFA,PROAIR HFA) 90 mcg/actuation inhaler, Inhale 2 puffs every 6 (six) hours as needed, Disp: , Rfl: ??? budesonide-formoteroL (Symbicort) 160-4.5 mcg/actuation inhaler, Inhale 2 puffs 2 (two) times aday, Disp: 9600 mcg of budesonide, Rfl: 5 ??? cetirizine-pseudoephedrine ER (ZyrTEC-D) 5-120 mg per 12 hr tablet, Take 1 tablet by mouth every 12 (twelve) hours, Disp: , Rfl: ??? mv-min/iron/folic/calcium/vitK (WOMEN'S MULTIVITAMIN ORAL), Take by mouth, Disp: , Rfl: Physical Exam: Vitals BP 147/97 Pulse 75 Temp 36.8 ??C (98.2 ??F) Resp 18 Ht 160.5 cm (5' 3.2 ) Wt 74.8 kg (165 lb) SpO2 100% BMI 29.04 kg/m?? Vitals reviewed. Constitutional: Well-developed and well-nourished. [...] FVC PRE Date Value Ref Range Status 10/30/2021 4.39 L Final 05/04/2019 4.38 0 - 12 Liters Final 04/14/2018 4.50 0 - 12 Liters Final FVC %PRE PRED Date Value Ref Range Status 10/30/2021 118 % Final 05/04/2019 117 0 - 300 % Final 04/14/2018 121 0 - 300 % Final FEV1 PRE Date Value Ref Range Status 10/30/2021 3.58 L Final 05/04/2019 3.62 0 - 12 Liters Final 04/14/2018 3.81 0 - 12 Liters Final FEV1 %PRE PRED Date Value Ref Range Status 10/30/2021 111 % Final 05/04/2019 112 0 - 300 % Final 04/14/2018 117 0 - 300 % Final Assessment 1. Mild persistent asthma, childhood onset, well-controlled. She is currently taking Symbicort 160mcg once daily. We discussed possibly changing her Symbicort to prn, and she is ready to switch. Given instruction for use pre-exercise. 2. Allergic rhinitis, on Zyrtec. She did not like Flonase but feels that her symptoms are adequately controlled. 3. Vocal Cord dysfunction, diagnosed in 06/2017, status post teaching/training by speech pathology.This may be the cause of the flattening of the inspiratory loop on spirometry. Recommendations 1. Change Symbicort to prn 2. Continue Zyrtec. 3. Continue exercises for vocal cord dysfunction. 4. Annual flu shot 5. Return to clinic in 18 months with spirometry, or sooner if needed. Lorenzo Tan MD Pulmonary/Critical Care Fellow documented in this encounter Plan of Treatment Not on file documented as of this encounter Results * Pulmonary Function Test - (04/29/2023 12:40 PM CDT) FVC PRE 4.39 L [facility] FVC %PRE PRED 118 % [facility] FEV1 PRE 3.63 L [facility] FEV1 %PRE PRED 114 % [facility] FEV1/FVC PRE 82.6 % [facility] Anatomical Region Laterality Modality PFT 04/29/2023 [...] and %HbO2 is age dependent. However, the [facility] Pulmonary Function Laboratory defines hypoxemia as a PO2 <55 or a %HbO2 <89. Narrative 04/29/2023 12:50 PM CDT PFT performed at:->[facility] Adult PFT Lab- CAM-8D Procedure:->Spirometry Pulmonary [...] Reason Start Date End Da te albuterol ER (VOSPIRE ER) 4 mg 12 hr tablet Inhale 2 puffs every 6 hours. 11/03/2021 ergocalciferol (VITAMIN D) 50,000 unit capsule once a week. 05/27/2017 11/03/2021 fluticasone propionate (FLONASE) 50 mcg/actuation nasal spray Administer 2 sprays into each nostril daily 05/04/2019 11/03/2021 geriatric multivitamin-min tablet Take 1 tablet by mouth daily. 11/03/2021 predniSONE (DELTASONE) 10 mg tablet daily. 05/27/2017 11/03/2021 Sprintec, 28, 0.25-35 mg-mcg per tablet Take 1 tablet by mouth daily 03/03/2020 11/03/2021 documented as of this encounter Historical Medications * This list may reflect changes made after this encounter. mv-min/iron/folic/c alcium/vitK (WOMEN'S MULTIVITAMIN ORAL) Take by mouth added in this encounter Care Teams Sole Molding Machine Operator Relationship Specialty [place] [address] [address] [address] PCP - General Internal Medicine 05/04/19 documented as of this encounter
--- OUTSIDE RECORDS SUMMARY | 2024-07-12 15:38 | XMS_ITS | Encounter Summary ---
Author Organization [facility] Address [address] [place] [address] Phone Care Team Providers Care Ruby On Rails Engineer Name Role Phone Minnie Mcneil MD Primary Care Provider [phone] Encounter Details Date Type Department Care Team (Late st Contact Info) Description 03/03/2021 Orders Only [facility] Pulmonary [address] [facility] Advanced Medicine 8th [place] [address] [place] [address] Casie Lowe MD PhD [address] [facility] [address] [place] [address] Social History Tobacco Use Types Packs/Day Years Used Date Smoking Tobacco: Never Smokeless Tobacco: Never Comments Unknown Sex and Gender Information Value Date Recorded Sex Assigned at Not on file 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
--- OUTSIDE RECORDS SUMMARY | 2024-07-12 15:39 | XMS_ITS | Referral Summary ---
Author Organization [facility] Code Address [address] [place] [address] Care Team Providers Care Tin Cutter Name Role Phone Minnie Mcneil MD Primary Care Provider [phone] Source Comments [facility] Code,non-owned Affiliates and Associated Physician Practices is amultiple site organization consisting of ambulatory clinics and hospital sitesin [place], [place], [place]. This disclosure is being madepursuant to the Care Everywhere program and may not contain all information available regarding this patient. Last updated 18.[facility] Code Allergies No known active allergies Medications * Be aware that medications may not be up to date on this document. Alwaysverify current medications with the patient. Medication Sig Dispensed Refills Start Date End Date Status albuterol HFA (RELION VENTOLIN) 108 (90 BASE) MCG/ACT inhaler Inhale 2 puffs by mouth every 6 hours as needed Active budesonide-formotero l (SYMBICORT) 160-4.5 MCG/ACT inhaler Inhale 2 puffs by mouth 2 times daily Active Cetirizine HCl (WAL-ZYR PO) Take by mouth once daily Active norgestimate-ethinyl estradiol (Cassie) 0.25-35 MG-MCG tabletIndications:Co ntraceptive Therapy Take 1 (one) tablet by mouth once daily Reasons: Control Treatment 3 packet 3 03/05/2022 Active Active Problems Problem Noted Date Diagnosed Date Persistent asthma Social History Tobacco Use Types Packs/Day Years Used Date Smoking Tobacco: Never Smokeless Tobacco: Never Alcohol Use Standard Drinks/Week Comments Yes 0 (1 standard drink = 0.6 oz pur e alcohol) 1x/mo since turning 22 PHQ-2 Answer Date Recorded PHQ2 TOTAL SCORE 0 03/05/2022 Sex and Gender Information Value Date Recorded Sex Assigned at Not on file Gender Identity Not on file Sexual Orientation Not on file Last Filed Vital Signs Vital Sign Reading Time Taken Comments Blood Pressure 134/84 03/05/2022 3:04 PM CDT Pulse 88 03/05/2022 3:04 PM CDT Temperature 36.1 ??C (97 ??F) 08/15/2020 3:29 PM CLEANING MATRON Respiratory Rate 16 04/12/2017 12:06 AM CDT Oxygen Saturation 99% 08/15/2020 3:29 PM CLEANING MATRON Inhaled Oxygen Concentration - - Weight 71 kg (156 lb 9.6 oz) 03/05/2022 3:04 PM CDT Height 157.5 cm (5' 2 ) 03/05/2022 3:04 PM CDT Body Mass Index 28.64 03/05/2022 3:04 PM CDT Plan of Treatment Not on file Procedures Procedure Name Priority Date/Time Associated Diagnosis Comments PAP IG LB 08/15/2020 4:08 AM CLEANING MATRON from Last 3 Months or Most Recently Relevant to Health Maintenance Results * PAP IG LB (08/15/2020 4:08 AM CLEANING MATRON) Diagnosis [facility] INSURANCE BILL Comment:NEGATIVE FOR INTRAEP ITHELIAL LESION OR MALIGNANCY. Specimen Adequacy [facility] INSURANCE BILL Comment: Satisfactory for evaluation. ??Endocervical and/or squamous metaplastic cells (endocervical component) are present. Clinician Provided ICD10 [facility] INSURANCE BILL Comment:Z01.419 Performed by [facility] INSURANCE BILL Comment:Eliazar Li totechnologist (ASCP) Comment . [facility] INSURANCE BILL Note [facility] INSURANCE BILL Comment: The Pap smear is a screening test designed to aid in the detection of premalignant and malignant conditions of the uterine cervix. ??It is not a diagnostic procedure and should not be used as the sole means of detecting cervical cancer. ??Both false-positive and false-negative reports do occur. ? . [facility]BP CPT Code Automation [facility] INSURANCE BILL Comment: This liquid based ThinPrep(R) pap test was screened with the use of an image guided system. 08/15/2020 4:08 AM CLEANING MATRON 08/15/2020 Narrative [facility] INSURANCE BILL - 08/17/2020 5:08 PM CLEANING MATRON Source.............Cervix No. of containers..01 ThinPrep Vial Resulting Agency Comment Lab Testing performed at: [address] ??[place] [id number] Fior Saravia MD LAB - PATHOLOGY/CYTO LOGY ORDERABLES [facility] INSURANCE BILL [address] [place] [address] from Last 3 Months or Most Recently Relevant to Health Maintenance Care Teams Tin Cutter Relationship Specialty Start Date End Date Minnie Mcneil MD PCP - General Internal Medicine 05/07/19
--- OUTSIDE RECORDS SUMMARY | 2024-07-12 15:39 | XMS_ITS | Patient Health Summary ---
Author Organization [facility] Address [address] [place] [address] Care Team Providers Care Gui Developer Name Role Phone Minnie Mcneil MD Primary Care Provider [phone] Note from [facility],non-owned Affiliates and Associated Physician Practices is amultiple site organization consisting of ambulatory clinics and hospital sitesin [place], [place], [place] and [place]. This disclosure is being madepursuant to the Care Everywhere program and may not contain all information available regarding this patient. Last updated 18.[facility] Allergies No known active allergies Medications * Be aware that medications may not be up to date on this document. Alwaysverify current medications with the patient. * albuterol HFA (RELION VENTOLIN) 108 (90 BASE) MCG/ACT inhaler Inhale 2 puffs by mouth every 6 hours as needed * budesonide-formoterol (SYMBICORT) 160-4.5 MCG/ACT inhaler Inhale 2 puffs by mouth 2 times daily * Cetirizine HCl (WAL-ZYR PO) Take by mouth once daily * norgestimate-ethinyl estradiol (Cassie) 0.25-35 MG-MCG tablet(Started 03/05/2022) Take 1 (one) tablet by mouth once daily Reasons: Control Treatment 3 refills by 03/05/2023 Active Problems Problem Noted Date Diagnosed Date [...] 36.1 ??C (97 ??F) 08/15/2020 3:29 PM GENERAL SUPERINTENDENT Respiratory Rate 16 04/12/2017 12:06 AM CDT Oxygen Saturation 99% 08/15/2020 3:29 PM GENERAL SUPERINTENDENT Inhaled Oxygen Concentration - - Weight 71 kg (156 lb 9.6 oz) 03/05/2022 3:04 PM CDT Height 157.5 cm (5' 2 ) 03/05/2022 3:04 PM CDT Body Mass Index 28.64 03/05/2022 3:04 PM CDT Procedures * PAP IG LB(Performed 08/15/2020) * PAP IG LB(Performed 08/07/2017) Performed for Well woman exam with routine gynecological exam Results * PAP IG LB (08/15/2020 4:08 AM GENERAL SUPERINTENDENT) Only the most recent of2 resultswithin the time period is included. Diagnosis [facility] INSURANCE BILL Comment:NEGATIVE FOR INTRAEP ITHELIAL LESION OR MALIGNANCY. Specimen Adequacy [facility] INSURANCE BILL Comment: Satisfactory for evaluation. ??Endocervical and/or squamous metaplastic cells (endocervical component) are present. Clinician Provided ICD10 [facility] INSURANCE BILL Comment:Z01.419 Performed by [employer] [facility] INSURANCE BILL Comment:Eliazar Li totechnologist (ASCP) Comment . [facility] INSURANCE BILL Note [facility] INSURANCE BILL Comment: The Pap smear is a screening test designed to aid in the detection of premalignant and malignant conditions of the uterine cervix. ??It is not a diagnostic procedure and should not be used as the sole means of detecting cervical cancer. ??Both false-positive and false-negative reports do occur. ? . IGLBP CPT Code Automation [facility] INSURANCE BILL Comment: This liquid based ThinPrep(R) pap test was screened with the use of an image guided system. 08/15/2020 4:08 AM GENERAL SUPERINTENDENT 08/15/2020 Narrative [facility] - 08/17/2020 5:08 PM GENERAL SUPERINTENDENT Source.............Cervix No. of containers..01 ThinPrep Vial Resulting Agency Comment Lab Testing performed at: [address] ??[place] [id number] Fior Saravia MD LAB - PATHOLOGY/CYTO LOGY ORDERABLES [facility] INSURANCE BILL [address] [place] [address] Care Teams Gui Developer Relationship Specialty Start Date End Date Minnie Mcneil MD PCP - General Internal Medicine 05/07/19
--- OUTSIDE RECORDS SUMMARY | 2024-07-12 15:39 | XMS_ITS | Encounter Summary ---
Author Organization [facility] Address [address] [place] [address] Care Team Providers Care Hiv/Aids Care Nurse Name Role Phone Minnie Mcneil MD Primary Care Provider [phone] Reason for Visit * Reason Comments Menstrual Problem pt here for having i rreguar periods for 2 months(light to spotting for 2-3 days at a time) Encounter Details Date Type Department Care Team (Late st Contact Info) Description 05/07/2019 4:15 PM CDT Office Visit [facility] Medical [facility] - OFFSET LITHOGRAPHIC 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 [address] [place] [address] Keysha Garcia MD [address] [place] [address] DUB (dysfunctional uterine bleeding) (Primary Dx); Breakthrough bleeding on OCPs Social History Tobacco Use Types Packs/Day Years Used Date Smoking Tobacco: Never Smokeless Tobacco: Never Alcohol Use Standard Drinks/Week Comments Yes 0 (1 standard drink = 0.6 oz pur e alcohol) 1x/mo since turning 22 Sex and Gender Information Value Date Recorded Sex Assigned at Not on file Gender Identity Not on file Sexual Orientation Not on file documented as of this encounter Last Filed Vital Signs Vital Sign Reading Time Taken Comments Blood Pressure 122/80 05/07/2019 4:04 PM CDT Pulse - - Temperature - - Respiratory Rate - - Oxygen Saturation - - Inhaled Oxygen Concentration - - Weight 64.9 kg (143 lb) 05/07/2019 4:04 PM CDT Height 160 cm (5' 3 ) 05/07/2019 4:04 PM CDT Body Mass Index 25.33 05/07/2019 4:04 PM CDT documented in this encounter Progress Notes * Keysha Garcia MD - 05/08/2019 6:48 PM CDT PANTS BUSHELER NOTE HPI Tessie Tanner is an 24 year old .woman who presents with problems with her periods. Was seen in November and wanted to start BC because getting . Started it with the next period.Has beenirregular since. The bleeding is light but can be monthly or every two weeks. Can have BTB then notbleed at the right time in the pack. Wanting to change. Also has noted pain since started having sex. It is a deep pain associated with sex and seems to be fairly consistent. Not introital. Past Medical History: Diagnosis Date ??? Persistent asthma using albuterol 3-4x/wk, triggers: exercise Past Surgical History: Procedure Laterality Date ??? APPENDECTOMY, LAPAROSCOPIC 2006 Social History Socioeconomic History ??? Marital status: Spouse name: Not on file ??? Number of children: Not on file ??? Years of education: Not on file ??? Highest education level: Not on file Occupational History ??? Not on file Social Needs ??? Financial resource strain: Not on file ??? Food insecurity: Worry: Not on file Inability: Not on file ??? Transportation needs: Medical: Not on file Non-medical: Not on file Tobacco Use ??? Smoking status: Never Smoker ??? Smokeless tobacco: Never Used Substance and Sexual Activity ??? Alcohol use: Yes Comment: 1x/mo since turning 22 ??? Drug use: No ??? Sexual activity: Yes Lifestyle ??? Physical activity: Days per week: Not on file Minutes per session: Not on file ??? Stress: Not on file Relationships ??? Social connections: Talks on phone: Not on file Gets together: Not on file Attends orthodoxy service: Not on file Active member of club or organization: Not on file Attends meetings of clubs or organizations: Not on file Relationship status: Not on file ??? Intimate partner violence: Fear of current or ex partner: Not on file Emotionally abused: Not on file Physically abused: Not on file Forced sexual activity: Not on file Other Topics Concern ??? 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 No Known Allergies OB History 0 Para 0 Term 0 0 AB 0 Living 0 SAB 0 TAB 0 Ectopic 0 Multiple 0 Live Births 0 Family History Problem Relation Age of Onset ??? Hypertension Father Review of Systems Constitutional: No weight or appetite changes. : No UTIs, frequency, urgency, hematuria, vaginal dryness or vaginal discharge. EXAMINATION BP 122/80 Ht 5' 3 Wt 143 lb BMI 25.33 kg/m2 Body mass index is 25.33 kg/m??. ASSESSMENT ICD-10-CM 1. DUB (dysfunctional uterine bleeding) N93.8 2. Breakthrough bleeding on OCPs N92.1 Patient Active Problem List Diagnosis Date Noted ??? Persistent asthma Priority: Not Prioritized PLAN Tessie Tanner is a 24 year old female, Patient's last menstrual period was 04/08/2019 (approximate)., here for 1. BTB on OCPs Talked about how pills work, how they differ from each other, possible SE etc. Most of the bleedingis during the second and third week of the pack. Explained can try and change the progestin dose first since no other SE etc. May take a couple of months to correct. Is very good about taking them atthe same time etc. 2. Dyspareunia Discussed sexual response, ballooning of vagina during foreplay, angle of uterus and adnexa to vagina etc. Talked about more foreplay, different positions etc to try and see if helps. IF does not maybenefit from US to check structural issues. Orders Placed This Encounter ??? levonorgestrel-ethinyl estradiol (ALESSE; LEVLITE; AVIANE; LUTERA; LESSINA; SRONYX) 0.1-20 MG-MCG tablet Keysha Garcia MD documented in this encounter Plan of Treatment Not on file documented as of this encounter Visit Diagnoses Diagnosis DUB (dysfunctional uterine bleeding)- Primary Other disorder of menstruation and other abnormal bleeding from female genital tract Breakthrough bleeding on OCPs Metrorrhagia documented in this encounter Care Teams Hiv/Aids Care Nurse Relationship Specialty Start Date End Date Minnie Mcneil MD PCP - General Internal Medicine 05/07/19 documented as of this encounter
--- OUTSIDE RECORDS SUMMARY | 2024-07-12 15:39 | XMS_ITS | Encounter Summary ---
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 Encounter Details Date Type Department Care Team (Late st Contact Info) Description 08/15/2020 3:40 PM DISH MACHINE OPERATOR Office Visit [facility] Medical [facility] - GILL TENDER [address] [place] [address] Fior Saravia MD [address] [place] [address] Well woman exam with routine gynecological exam (Primary Dx) Social History Tobacco Use Types Packs/Day Years Used Date Smoking Tobacco: Never Smokeless Tobacco: Never Alcohol Use Standard Drinks/Week Comments Yes 0 (1 standard drink = 0.6 oz pur e alcohol) 1x/mo since turning 22 Sex and Gender Information Value Date Recorded Sex Assigned at Not on file Gender Identity Not on file Sexual Orientation Not on file COVID-19 Exposure Response Date Recorded In the last month, have you been in contact with someone who was confirmed or suspected to have Coronavirus / COVID-19? No / Unsure 08/12/2020 3:22 PM DISH MACHINE OPERATOR documented as of this encounter Last Filed Vital Signs Vital Sign Reading Time Taken Comments Blood Pressure 141/92 08/15/2020 3:29 PM DISH MACHINE OPERATOR Pulse 78 08/15/2020 3:29 PM DISH MACHINE OPERATOR Temperature 36.1 ??C (97 ??F) 08/15/2020 3:29 PM DISH MACHINE OPERATOR Respiratory Rate - - Oxygen Saturation 99% 08/15/2020 3:29 PM DISH MACHINE OPERATOR Inhaled Oxygen Concentration - - Weight 71.3 kg (157 lb 3.2 oz) 08/15/2020 3:29 P M DISH MACHINE OPERATOR Height 157.5 cm (5' 2 ) 08/15/2020 3:29 PM DISH MACHINE OPERATOR Body Mass Index 28.75 08/15/2020 3:29 PM DISH MACHINE OPERATOR documented in this encounter Progress Notes * Fior Saravia MD - 08/15/2020 4:07 PM CST Well Woman Exam (Established) HISTORY Tessie is a 25 year old G0 LMP 07/08/20 who returns for WWE. No SCHOOL COMMISSIONER concerns. Happy w/OCP. No side effects or problems remembering. Wants to continue pill, declines alternative route of contraception.No breast concerns, does exam q1-2 mo. Denies domestic violence, depression or SI. SCHOOL COMMISSIONER History Menarche: 12 yo Menses: regular Sexual activity: sexually active, 1 current partner (), 1 lifetime partner Sexual preference: male Control: COCs STIs: none She denies h/o sexual abuse. Last pap: NILM 08/07/17 H/o abnormal: no HPV vaccination status: has received HPV vaccine Past Medical History: Diagnosis Date ??? Persistent asthma using albuterol 3-4x/wk, triggers: exercise Past Surgical History: Procedure Laterality Date ??? APPENDECTOMY, LAPAROSCOPIC 2006 Current Outpatient Medications Medication ??? albuterol HFA (RELION VENTOLIN) 108 (90 BASE) MCG/ACT inhaler ??? budesonide-formoterol (SYMBICORT) 160-4.5 MCG/ACT inhaler ??? Cetirizine HCl (WAL-ZYR PO) ??? norgestimate-ethinyl estradiol (ORTHO-CYCLEN; MONONESSA; PREVIFEM; SPRINTEC) 0.25-35 MG-MCG tablet No current facility-administered medications for this visit. No Known Allergies Social History Tobacco Use ??? Smoking status: Never Smoker ??? Smokeless tobacco: Never Used Substance Use Topics ??? Alcohol use: Yes Comment: 1x/mo since turning 22 ??? Drug use: No Denies history of drug use. 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 Currently living w/in-laws in [place] to pay down student loans. They did buy some land there and are planning to build. Review of Systems: A 12 point ROS was reviewed in addition to the symptoms per HPI. Review of Systems Constitutional: Negative for chills, fever and weight loss. HENT: Negative for congestion, hearing loss and sore throat. Eyes: Negative for blurred vision. Respiratory: Negative for cough, shortness of breath and wheezing. Cardiovascular: Negative for chest pain. Gastrointestinal: Negative for abdominal pain, blood in stool, constipation, diarrhea, nausea and vomiting. Genitourinary: Negative for dysuria, frequency, hematuria and urgency. Musculoskeletal: Negative for joint pain. Skin: Negative for itching and rash. Neurological: Negative for dizziness and headaches. Endo/Heme/Allergies: Does not bruise/bleed easily. Psychiatric/Behavioral: Negative for depression. The patient is not nervous/anxious. All other systems reviewed and are negative. EXAMINATION BP 141/92 Pulse 78 Temp 97 ??F (36.1 ??C) Ht 5' 2 Wt 157 lb 3.2 oz SpO2 99% BMI 28.75 kg/m2 GEN: Well dressed and groomed female NEURO: A&Ox3, NAD PSYCH: Mood and affect appropriate HEENT: Normocephalic, atraumatic NECK: Supple and symmetric, without any masses. Trachea is midline RESP: Respirations even and nonlabored CV: Normal peripheral vascular BREASTS: Examined in upright and supine position. No masses, tissue texture changes, or dimpling. No skin changes or nipple discharge. Nontender. Breast self-exam and breast awareness taught. SKIN: No rashes or lesions ABDOMEN: Soft, NT/ND. No masses or hepatosplenomegaly. No hernia. EXT: Full range of motion, extremities normal, atraumatic, no cyanosis or edema LYMPHATIC: No axillary or supraclavicular adenopathy External Genitalia: Normal vulva: no lesions, masses, epithelial changes, or exudate BUS: Normal Bartholin's and Chinchilla's glands Urinary: Urethral meatus normal without masses. Urethra without masses or tenderness. No suprapubictenderness associated with bladder Vagina: normal appearing vagina with normal color and discharge, no lesions Cervix: normal appearing cervix without discharge or lesions. A thin prep pap was obtained without difficulty Uterus: uterus is normal size, shape, consistency and nontender Adnexa: normal adnexa in size, nontender and no masses Rectovaginal: rectal exam not indicated Anus/perineum: Normal ASSESSMENT ICD-10-CM 1. Well woman exam with routine gynecological exam Z01.419 PAP IGP CERVICAL CANCER SCREENING PLAN Preventive medicine: -Pap smear done today, Pap smear schedule reviewed with patient -Breast exam and breast awareness reviewed -STI testing: declined. -Contraception: OCP refilled x 1 yr -Healthy lifestyle discussed including a well-balanced diet, exercise Follow up one year or sooner PRN. Orders Placed This Encounter ??? PAP IGP CERVICAL CANCER SCREENING See orders, medications, patient instructions. MACHINE OPERATOR documented in this encounter Plan of Treatment Scheduled Orders Name Type Priority Associated Diagnoses Orde r Schedule PAP IGP CERVICAL CANCER SCREENING Pathology Cytology Routine Well woman exam with routine gynecological exam Ordered: 08/15/2020 documented as of this encounter Procedures Procedure Name Priority Date/Time Associated Diagnosis Comments PAP IG LB 08/15/2020 4:08 AM DISH MACHINE OPERATOR documented in this encounter Results * PAP IG LB (08/15/2020 4:08 AM DISH MACHINE OPERATOR) Diagnosis [facility] INSURANCE BILL Comment:NEGATIVE FOR INTRAEP ITHELIAL LESION OR MALIGNANCY. Specimen Adequacy [facility] INSURANCE BILL Comment: Satisfactory for evaluation. ??Endocervical and/or squamous metaplastic cells (endocervical component) are present. Clinician Provided ICD10 [facility] INSURANCE BILL Comment:Z01.419 Performed by [facility] INSURANCE BILL Comment:Eliazar Li totechnologist (ASCP) Comment [...] occur. ? . IGLBP CPT Code Automation [facility] INSURANCE BILL Comment: This liquid based ThinPrep(R) pap test was screened with the use of an image guided system. 08/15/2020 4:08 AM DISH MACHINE OPERATOR 08/15/2020 Narrative [facility] INSURANCE BILL - 08/17/2020 5:08 PM DISH MACHINE OPERATOR Source.............Cervix No. of containers..01 ThinPrep Vial Resulting Agency Comment Lab Testing performed at: [address] ??[place] [id number] Fior Saravia MD LAB - PATHOLOGY/CYTO LOGY ORDERABLES Performing Organization Address City/State/[facility] Co de Phone Number [facility] BILL [address] [place] [address] documented in this encounter Visit Diagnoses Diagnosis Well woman exam with routine gynecological exam- Primary Routine gynecological examination documented in this encounter Care Teams Can Tender Relationship Specialty Start Date End Date Minnie Mcneil MD PCP - General Internal Medicine 05/07/19 documented as of this encounter
--- OUTSIDE RECORDS SUMMARY | 2024-07-12 15:39 | XMS_ITS | Encounter Summary ---
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 Encounter Details Date Type Department Care Team (Late st Contact Info) Description 11/10/2018 1:20 PM CDT Office Visit [facility] Medical [facility] - FARM OPERATIONS MANAGER [address] [place] [address] Fior Saravia MD [address] [place] [address] Well woman exam with routine [...] Sign Reading Time Taken Comments Blood Pressure 131/78 11/10/2018 1:19 PM CDT Pulse 79 11/10/2018 1:19 PM CDT Temperature - - Respiratory Rate - - Oxygen Saturation - - Inhaled Oxygen Concentration - - Weight 62.7 kg (138 lb 3.2 oz) 11/10/2018 1:19 P M CDT Height 160 cm (5' 3 ) 11/10/2018 1:19 PM CDT Body Mass Index 24.48 11/10/2018 1:19 PM CDT documented in this encounter Progress Notes * Fior Saravia MD - 11/10/2018 1:11 PM CDT Well Woman Exam (Established) HISTORY Tessie is a 23 year old G0 LMP 10/15/18 who returns for Well Woman Exam. She denies breast concerns- doing SBE. She denies abnormal vaginal discharge, vulvar itching/irritation, or pelvic pain. Patient does not have other gynecological issues or concerns. Reports spotting 3-4 days leading up to her cycle, has happened w/last few cycles. Is dark red and only requires panty liner. Denies abnormal discharge. Is getting 04/04/19 and will want control after that. Has not yet become sexually active yet. 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 Last pap: NILM 08/07/17 H/o abnormal: no HPV vaccination status: has received HPV vaccine Past Medical History: Diagnosis Date ??? Persistent asthma using albuterol 3-4x/wk, triggers: exercise Past Surgical History: Procedure Laterality Date ??? APPENDECTOMY, LAPAROSCOPIC 2006 Current Outpatient Prescriptions Medication ??? albuterol HFA (RELION VENTOLIN) 108 (90 BASE) MCG/ACT inhaler ??? budesonide-formoterol (SYMBICORT) 160-4.5 MCG/ACT inhaler ??? Cetirizine HCl (WAL-ZYR PO) ??? Cholecalciferol (VITAMIN D PO) No Known Allergies Social History Substance Use Topics ??? Smoking status: Never Smoker ??? Smokeless tobacco: Never Used ??? Alcohol use Yes Comment: 1x/mo since turning 22 Denies history of drug use. Engaged. 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 Family History Problem Relation Age of Onset ??? Hypertension Father O/w denies fam h/o breast, uterine, ovarian, cervical, colon or other GI cancer. Review of Systems: A 10 point ROS was reviewed in addition to [...] for depression. The patient is not nervous/anxious. EXAMINATION BP 131/78 Pulse 79 Ht 5' 3 Wt 138 lb 3.2 oz BMI 24.48 kg/m2 GEN: Well dressed and groomed female, appears younger than stated age NEURO: A&Ox3, NAD PSYCH: Mood and affect appropriate HEENT: Normocephalic, atraumatic NECK: Supple and symmetric, without any masses. Trachea is midline RESP: clear to auscultation bilaterally, no wheezing, Respirations even and nonlabored CV: regular rhythm, normal S1 and S2, without murmurs, gallops or rubs BREASTS: Examined in upright and supine position. No masses, tissue texture changes, or dimpling. No skin changes or nipple discharge. Nontender. Breast self-exam and breast awareness reviewed. SKIN: No rashes or lesions ABDOMEN: Soft, NT/ND. No masses or hepatosplenomegaly. No hernia. EXT: Full range of motion, extremities normal, atraumatic, no cyanosis or edema LYMPHATIC: No axillary or supraclavicular adenopathy External Genitalia: Normal vulva: no lesions, masses, epithelial changes, or exudate BUS: Normal Bartholin's and [place]'s glands Urinary: Urethral meatus normal without masses. Urethra without masses or tenderness. No suprapubictenderness associated with bladder Vagina: normal appearing vagina with normal color and discharge, no lesions, virginal introitus Cervix: normal appearing cervix without discharge or lesions, nulliparous os Uterus: uterus is normal size, shape, consistency and nontender Adnexa: normal adnexa in size, nontender and no masses Rectovaginal: rectal exam not indicated Anus/perineum: Normal ASSESSMENT ICD-10-CM 1. Well woman exam with routine gynecological exam Z01.419 PLAN Preventive medicine: -Pap smear UTD, due 07/2020, Pap smear schedule reviewed with patient -Breast exam and breast awareness reviewed -STI testing: declined. -HPV vaccine: completed -Healthy lifestyle discussed including a well-balanced diet, exercise -Pt elects to start low-dose OCP to see if this eliminates her spotting. Discussed extended cycle use around time of wedding/honeymoon to avoid a period during this window. All questions answered. Follow up one year or sooner PRN. Orders Placed This Encounter ??? norethin-eth estradiol-FE (LOESTRIN FE 07/27; JUNEL FE 07/27; MICROGESTIN FE 07/27) 1-20 MG-MCG tablet See orders, medications, patient instructions. documented in this encounter Plan of Treatment Not on file documented as of this encounter Visit Diagnoses Diagnosis Well woman exam with routine gynecological exam- Primary Routine gynecological examination documented in this encounter
--- OUTSIDE RECORDS SUMMARY | 2024-07-12 15:39 | XMS_ITS | Encounter Summary ---
Author Organization [facility] Address [address] [place] [address] Care Team Providers Care Automobile Brake Bonder Name Role Phone Minnie Mcneil MD Primary Care Provider [phone] Encounter Details Date Type Department Care Team (Latest Contact Info) Description 08/12/2020 Travel Social History Tobacco Use Types Packs/Day Years [...] COVID-19? No / Unsure 08/12/2020 3:22 PM DIE CLEANER documented as of this encounter Plan of Treatment Not on file documented as of this encounter Visit Diagnoses Not on filedocumented in this encounter Care Teams Automobile Brake Bonder Relationship Specialty Start Date End Date Minnie Mcneil MD PCP - General Internal Medicine 05/07/19 documented as of this encounter
--- OUTSIDE RECORDS SUMMARY | 2024-07-12 15:39 | XMS_ITS | Encounter Summary ---
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 Encounter Details Date Type Department Care Team (Late st Contact Info) Description 09/08/2019 2:40 PM SURGICAL NURSE PRACTITIONER Office Visit [facility] Medical [facility] - DONOR TECHNICIAN [address] [place] [address] Fior Saravia MD [address] [place] [address] Breakthrough bleeding on OCPs (Primary Dx) Social History Tobacco Use Types [...] Sign Reading Time Taken Comments Blood Pressure 133/91 09/08/2019 2:37 PM SURGICAL NURSE PRACTITIONER Pulse 76 09/08/2019 2:37 PM SURGICAL NURSE PRACTITIONER Temperature 36.6 ??C (97.9 ??F) 09/08/2019 2:37 PM CS T Respiratory Rate - - Oxygen Saturation - - Inhaled Oxygen Concentration - - Weight 66.6 kg (146 lb 12.8 oz) 09/08/2019 2:37 PM SURGICAL NURSE PRACTITIONER Height 160 cm (5' 3 ) 09/08/2019 2:37 PM SURGICAL NURSE PRACTITIONER Body Mass Index 26 09/08/2019 2:37 PM SURGICAL NURSE PRACTITIONER documented in this encounter Progress Notes * Fior Saravia MD - 09/08/2019 2:37 PM CST HOLISTIC PULSER Office Visit (Established) HISTORY Tessie is a 24 year old G0 LMP 09/06/19 who returns with complaints of continued irregular bleeding.Pt had irreg bleeding w/spotting 3-4 days prior to menses - this predates her initation of OCPs 11/2018. Pt presented to Dr. Garcia 04/2019 while I was on leave with complaints of irregular bleeding q2-4 wks and bleeding that was not aligning with the anticipated time of her pill pack. Was switched f rom Loestrin to Sronyx (same estrogen and dose, diff progestin). Pt reports her bleeding has gottenworse since July. Bleeding every other week, mostly light flow/spotting and not full menstrual flow, but is very frequent and frustrating. Denies skipped pills. On further discussion pt admits to skipping placebos since May bc she didn't want to have a period on [place]. Reports her pain w/intercourse has improved a lot. Does have some light bleeding w/intercourse. Papnormal and UTD. HOLISTIC PULSER History Menarche: 12 yo Menses: prior to OCP -> regular monthly cycle, Usually lasting 5 to 6 days - not overly heavy except middle few days when changes a pad q2-3 hrs, not painful Sexual activity: sexually active, 1 current partner [...] inhaler ??? Cetirizine HCl (WAL-ZYR PO) ??? Sronyx No current facility-administered medications for this visit. No Known Allergies Social History Tobacco Use ??? Smoking status: Never Smoker ??? Smokeless tobacco: Never Used Substance Use Topics ??? Alcohol use: Yes Comment: 1x/mo since turning 22 ??? Drug use: No Denies history of drug use. in the last yr (honeymooned in [place]). Works in [employer], graduated college 2 yr ago. 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 Review of Systems: A 10 point ROS was reviewed in addition to the symptoms per HPI. Review of Systems Constitutional: Negative for chills and fever. Respiratory: Negative for shortness of breath. Cardiovascular: Negative for chest pain. Gastrointestinal: Negative for constipation and diarrhea. Genitourinary: Negative for dysuria. All other systems reviewed and are negative. EXAMINATION BP 133/91 Pulse 76 Temp 97.9 ??F (36.6 ??C) Ht 5' 3 Wt 146 lb 12.8 oz BMI 26 kg/m2 GEN: Well dressed and groomed female NEURO: A&Ox3, NAD PSYCH: Mood and affect appropriate HEENT: Normocephalic, atraumatic NECK: Supple and symmetric, without any masses. Trachea is midline SKIN: No rashes or lesions ABDOMEN: Soft, NT/ND. No masses or hepatosplenomegaly. No hernia. EXT: Full range of motion, extremities normal, atraumatic, no cyanosis or edema External Genitalia: Normal vulva: no lesions, masses, epithelial changes, or exudate BUS: Normal Bartholin's and [place]'s glands Urinary: Urethral meatus normal without masses. Urethra without masses or tenderness. Vagina: normal appearing vagina with normal color, scant brown discharge mixed with cervical mucus,no lesions Cervix: normal appearing cervix without discharge or lesions, nulliparous os Uterus: uterus is normal size, shape, consistency and nontender Adnexa: normal adnexa in size, nontender and no masses Rectovaginal: rectal exam not indicated Anus/perineum: Normal ASSESSMENT ICD-10-CM 1. Breakthrough bleeding on OCPs N92.1 PLAN -Discussed diff dx of irreg bleeding: cervicitis (unlikely, monogamous, low risk for STI), cervicaldysplasia (Pap UTD and cervix visibly normal), fibroids or polyps, or iatrogenic 2/2 contraceptive exposure (most likely). -Offered option for TVUS. Pt wants to start w/pill change first and obtain US only if irreg bleeding persists. -Discussed option to change OCP - would rec one with ^ estrogen dose to stabilize endometrium. Alsodiscussed other contraceptives like patch/ring (might have same effect on bleeding), Depo, and LARC. Pt desires in 1-2 yrs. -Ultimately pt desired to change control pill. Will switch from Sronyx to Sprintec, ^ estradiol from 20 to 35 mcg. Advised pt that may take 2-3 mo to improve bleeding pattern/recover from BTB. If bleeding irregularity persists, to notify me. RTO in 6 mo for f/u on irreg bleeding Preventive medicine: -Pap smear UTD, due 07/2020, [...] sooner PRN. Orders Placed This Encounter ??? norgestimate-ethinyl estradiol (ORTHO-CYCLEN; MONONESSA; PREVIFEM; SPRINTEC) 0.25-35 MG-MCG tablet See orders, medications, patient instructions. ICAL NURSE PRACTITIONER documented in this encounter Plan of Treatment Not on file documented as of this encounter Visit Diagnoses Diagnosis Breakthrough bleeding on OCPs- Primary Metrorrhagia documented in this encounter Care Teams Marketing Content Coordinator Relationship Specialty Start Date End Date Minnie Mcneil MD PCP - General Internal Medicine 05/07/19 documented as of this encounter
--- OUTSIDE RECORDS SUMMARY | 2024-07-12 15:39 | XMS_ITS | Encounter Summary ---
Author Organization [facility] Address [address] [facility] [place] [address] Care Team Providers Care Director Of Land Name Role Phone Minnie Mcneil MD Primary Care Provider [phone] Reason for Visit * Reason Comments Refill Request Encounter Details Date Type Department Care Team (Late st Contact Info) Description 03/02/2022 Refill [facility] Medical Group - PLANNING SUPERVISOR [address] [place] [address] Fior Saravia MD [address] [place] [address] Refill Request Social History Tobacco Use Types Packs/Day Years [...] encounter Miscellaneous Notes * Telephone Encounter - Tiffanie Duckworth - 03/02/2022 1:45 PM CDT Last visit: 08/15/20 Last refill: 01/31/22 Next visit: 03/05/22 documented in this encounter Plan of Treatment Not on file documented as of this encounter Visit Diagnoses Not on filedocumented in this encounter Care Teams Director Of Land Relationship Specialty Start Date End Date Minnie Mcneil MD PCP - General Internal Medicine 05/07/19 documented as of this encounter
--- OUTSIDE RECORDS SUMMARY | 2024-07-12 15:39 | XMS_ITS | Encounter Summary ---
Author Organization [facility] Care Team Providers Care Law Office Receptionist Name Role Phone Unavailable Primary Care Provider Unavailabl e Encounter Details Date Type Department Care Team (Late st Contact Info) Description 10/22/2006 10:21 PM CDT - 10/24/2006 10:48 AM CDT Hospital Encounter [facility] Social History Tobacco Use Types Packs/Day Years Used Date Smoking Tobacco: Never Assessed Comments Unknown Sex and Gender Information Value Date Recorded Sex Assigned at Not on file Legal Sex Female 7:31 AM EXAMINER OF CURRENCY Gender Identity Female 10/30/2021 8:16 AM CDT Sexual Orientation Not on file documented as of this encounter Plan of Treatment Not on file documented as of this encounter Visit Diagnoses Not on filedocumented in this encounter
--- OUTSIDE RECORDS SUMMARY | 2024-07-12 15:39 | XMS_ITS | Encounter Summary ---
Author Organization [facility] Address [address] [place] [address] Care Team Providers Care Dowel Inserting Machine Operator Name Role Phone Unavailable Primary Care Provider Unavailabl e Reason for Visit * Reason Onset Date Comments Scheduling 04/23/2019 Encounter Details Date Type Department Care Team (Late st Contact Info) Description 04/23/2019 Telephone [facility] Medical Group - RAIL CAR REPAIRMAN [address] [place] [address] Fior Saravia MD [address] [place] [address] Scheduling Social History Tobacco Use Types Packs/Day Years [...] encounter Miscellaneous Notes * Telephone Encounter - Kiah Mccollum - 04/24/2019 9:22 AM CDT Pt scheduled * Telephone Encounter - Yessica Reed - 04/23/2019 4:22 PM CDT Who is calling? self What is the reason for call? Patient called requesting an appointment stating her cycles have been coming every 2 weeks for 2 months. Expected Response from the Clinic? Call back. documented in this encounter Plan of Treatment Not on file documented as of this encounter Visit Diagnoses Not on filedocumented in this encounter
--- OUTSIDE RECORDS SUMMARY | 2024-07-12 15:39 | XMS_ITS | Encounter Summary ---
Author Organization [facility] Address [address] [place] [address] Care Team Providers Care Precision Millwright Name Role Phone Minnie Mcneil MD Primary Care Provider [phone] Reason for Visit * Reason Comments Refill Request Encounter Details Date Type Department Care Team (Late st Contact Info) Description 08/12/2020 Refill [facility] Medical [facility] - CONSUMER RELATIONS SPECIALIST [address] [place] [address] Fior Saravia MD [address] [place] [address] Refill Request Social History Tobacco [...] COVID-19? No / Unsure 08/12/2020 3:22 PM FRENCH PROFESSOR documented as of this encounter Plan of Treatment Not on file documented as of this encounter Visit Diagnoses Not on filedocumented in this encounter Care Teams Precision Millwright Relationship Specialty Start Date End Date Minnie Mcneil MD PCP - General Internal Medicine 05/07/19 documented as of this encounter
--- OUTSIDE RECORDS SUMMARY | 2024-07-12 15:39 | XMS_ITS | Encounter Summary ---
Author Organization [facility] Address [address] [place] [address]. [place] [address] [place] [address] Care Team Providers Care Screen Door Maker Name Role Phone None, Provider Primary Care Provider Carolinaa rut Encounter Details Date Type Department Care Team (Latest Contact Info) Description 01/24/2024 Travel Social History Tobacco Use Types Packs/Day Years Used Date Smoking Tobacco: Never Passive Smoke Exposure: Never Smokeless Tobacco: Never Alcohol Use Standard Drinks/Week Comments No 0 (1 standard drink = 0.6 oz pur e alcohol) AUDIT-C Answer Date Recorded Frequency of Alcohol Consumption Never 03/02/2019 Average Number of Drinks Not on file 019 Frequency of Binge Drinking Not on file 02/06 PHQ-2 Answer Date Recorded Patient Health Questionnaire-2 Score 0 01/24/2024 Comments No Sex and Gender Information Value Date Recorded Sex Assigned at Not on file Legal Sex Female 7:39 PM CDT Gender Identity Not on file Sexual Orientation Not on file 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
--- OUTSIDE RECORDS SUMMARY | 2024-07-12 15:39 | XMS_ITS | Clinical Summary ---
Author Organization [facility] Address [address] [facility] [place] [address] Care Team Providers Care Sample Taker Operator Name Role Phone Minnie Mcneil MD Primary Care Provider [phone] Source Comments [facility],non-owned Affiliates and Associated Physician Practices is amultiple site organization consisting of ambulatory clinics and hospital sitesin [place], [place], [place]. This disclosure is being madepursuant to the Care Everywhere program and may not contain all information available regarding this patient. Last updated 18.[facility] Allergies No known active allergies Medications * [...] Problem Noted Date Diagnosed Date Persistent asthma Family History Medical History Relation Name Comments Hypertension Father Relation Name Status Comments Father Social History [...] 36.1 ??C (97 ??F) 08/15/2020 3:29 PM BUTTON SEWER HAND Respiratory Rate 16 04/12/2017 12:06 AM CDT Oxygen Saturation 99% 08/15/2020 3:29 PM BUTTON SEWER HAND Inhaled Oxygen Concentration - - Weight 71 kg (156 lb 9.6 oz) 03/05/2022 3:04 PM CDT Height 157.5 cm (5' 2 ) 03/05/2022 3:04 PM CDT Body Mass Index 28.64 03/05/2022 3:04 PM CDT Plan of Treatment Health Maintenance Due Date Last Done Comments PNEUMOCOCCAL VACCINE (1 of 2 - PCV) 2002 HIV SCREENING 2011 HEPATITIS C SCREENING 03/07/2014 DTAP/TDAP/TD VACCINES (1 - Tdap) 2015 HEPATITIS B VACCINE (1 of 3 - 19+ 3-dose series) 2015 DEPRESSION SCREENING 07/08/2023 03/05/2022 PAP SMEAR 08/15/2023 08/15/2020, 08/07/2017 COVID-19 VACCINE ( season) 2024 05/16/2021, 10/17/2020, 09/19/2020 INFLUENZA VACCINE (#1) 2024 , 04/14/2020, 03/27/2019, Additional history exists ZOSTER VACCINE (1 of 2) 2046 HIB VACCINE Aged Out No longer eligi ble based on patient's age to complete this topic HPV VACCINE Aged Out No longer eligi ble based on patient's age to complete this topic MENINGOCOCCAL VACCINE Aged Out No jose luis carlie eligible based on patient's age to complete this topic Procedures Procedure Name Priority Date/Time Associated Diagnosis Comments PAP IG LB 08/15/2020 4:08 AM BUTTON SEWER HAND from Last 3 Months or Most Recently Relevant to Health Maintenance Results * PAP IG LB (08/15/2020 4:08 AM BUTTON SEWER HAND) Diagnosis [facility] INSURANCE BILL Comment:NEGATIVE FOR INTRAEP ITHELIAL LESION OR MALIGNANCY. Specimen Adequacy [facility] INSURANCE BILL Comment: Satisfactory for evaluation. ??Endocervical and/or squamous metaplastic cells (endocervical component) are present. Clinician Provided ICD10 [facility] INSURANCE BILL Comment:Z01.419 Performed by [facility] INSURANCE BILL Comment:Eliazar Li totechnologist (ASCP) Comment [...] occur. ? . IGLBP CPT Code Automation [facility] INSURANCE BILL Comment: This liquid based ThinPrep(R) pap test was screened with the use of an image guided system. 08/15/2020 4:08 AM BUTTON SEWER HAND 08/15/2020 Narrative [facility] INSURANCE BILL - 08/17/2020 5:08 PM BUTTON SEWER HAND Source.............Cervix No. of containers..01 ThinPrep Vial Resulting Agency Comment Lab Testing performed at: [facility] ??[place] [id number] Fior Saravia MD LAB - PATHOLOGY/CYTO LOGY ORDERABLES [facility] INSURANCE BILL [address] [place] [address] from Last 3 Months or Most Recently Relevant to Health Maintenance Care Teams Sample Taker Operator Relationship Specialty Start Date End Date Minnie Mcneil MD PCP - General Internal Medicine 05/07/19
--- OUTSIDE RECORDS SUMMARY | 2024-07-12 15:39 | XMS_ITS | Encounter Summary ---
Author Organization [facility] Address [address] [place] [address]. [place] [address] [place] [address] Care Team Providers Care Advertising Analyst Name Role Phone None, Provider MD Primary Care Provider Unavaila ble Reason for Visit * Reason Comments New Patient Wellness Program Need form filled out for work Encounter Details Date Type Department Care Team (Late st Contact Info) Description 01/24/2024 8:20 AM CDT Office Visit [facility] Family Medicine [facility] [address] [facility] [address] [place] [id number] Dora Hernandez MD [address] [id number] New Patient; Wellness Program (Need form filled out for work ) Social History Tobacco Use Types Packs/Day Years Used Date Smoking Tobacco: Never Passive Smoke Exposure: Never Smokeless Tobacco: Never Tobacco Cessation:Counseling Given: No Alcohol Use Standard Drinks/Week Comments No 0 [...] 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 Not on file Not on file documented as of this encounter Last Filed Vital Signs Vital Sign Reading Time Taken Comments Blood Pressure 137/85 01/24/2024 8:13 AM CDT Pulse 82 01/24/2024 8:13 AM CDT Temperature 36.5 ??C (97.7 ??F) 01/24/2024 8:13 AM CD T Respiratory Rate 16 01/24/2024 8:13 AM CDT Oxygen Saturation 100% 01/24/2024 8:13 AM CDT Inhaled Oxygen Concentration - - Weight 75.3 kg (166 lb) 01/24/2024 8:13 AM CDT Height 162.6 cm (5' 4 ) 01/24/2024 8:13 AM CDT Body Mass Index 28.49 01/24/2024 8:13 AM CDT documented in this encounter Patient Instructions * Patient Instructions* Dora Hernandez MD - 01/24/2024 8:20 AM CDT Images from the original note were not included. High Fiber Diet About this topic Dietary fiber helps many illnesses. It can help you if you cannot have a bowel movement or if you have loose stools. Fiber can also lower your risk of diabetes and heart disease. Fiber can help with weight loss by helping you feel oliveira after meals. You can find fiber in fruits, vegetables, nuts and seeds, whole grains, and legumes. The fiber is the part of the plant food that your body cannot break down and absorb. It passes through your stomach, small bowel, colon, and out your body. There are two kinds of fiber: Insoluble and soluble fiber. Insoluble fiber helps you pass foods through your digestive system. Insoluble fiber can help you with hard stools. Soluble fiber draws waterin and turns it into a gel-like form making digestion slow down. Both are important. What will the results be? A high fiber diet can help you with bowel problems like stools that are too hard or too loose. It can also help prevent hemorrhoids and other colon problems. A high fiber diet can also help control your weight and lower blood sugar and cholesterol levels. What changes to diet are needed? The amount of fiber you need is based on your age, gender, and health. Try to get 20 to 35 grams of fiber in your diet each day. Most people in the [place] only eat 15 grams of fiber daily. Drink at least 8 cups (1920 mL) of fluid each day. When is this diet used? Your doctor may talk with you about this diet if you have belly problems. Who should use this diet? Older children, young people, and adults can have this diet. Who should not use this diet? Some people should not use this diet. Check with your doctor if you have: Diverticulitis Active Crohn's disease Ulcerative colitis Bowel inflammation Certain types of GI surgery Talk to your child's doctor before starting your child on a high fiber diet. What foods are good to eat? To get the most from fiber in your diet, eat a wide variety of high fiber foods. Some examples are: Vegetables like: Spinach Peas Artichoke Sweet potatoes with skin Broccoli Fruits like: Raspberries Blueberries Blackberries Apples with skin Dried fruits Grains like: Oat bran Barley Whole wheat products Wheat bran Dried beans and nuts like: [place]am seeds Almonds Black beans Chickpeas What problems could happen? Sudden increase of fiber intake can lead to gas, pain, fullness in your belly, and loose stools. Increase fiber gradually while drinking plenty of fluids. Do not eat too much fiber. Your body will not take in vitamins and minerals as well if you eat too much fiber. When do I need to call the doctor? Health problem is not better or you are feeling worse. Helpful tips Start slow as you add more fiber to your diet. This may help prevent gas or cramps. Try to eat the same amount of fiber each day. Aim to get your fiber from nutritious foods. Supplements do not offer the same benefits as food. Read food labels with care to learn how much fiber is in the food you are eating. If possible, do not peel fruits or vegetables before you eat them. Eating the peel gives you more fiber. Last Reviewed Date 2021-03-30 Consumer Information Use and Disclaimer This generalized information is a limited summary of diagnosis, treatment, and/or medication information. It is not meant to be comprehensive and should be used as a tool to help the user understand and/or assess potential diagnostic and treatment options. It does NOT include all information about conditions, treatments, medications, side effects, or risks that may apply to a specific patient. Itis not intended to be medical advice or a substitute for the medical advice, diagnosis, or treatment of a health care provider based on the health care provider's examination and assessment of a patient???s specific and unique circumstances. Patients must speak with a health care provider for complete information about their health, medical questions, and treatment options, including any risks orbenefits regarding use of medications. This information does not endorse any treatments or medications as safe, effective, or approved for treating a specific patient. [employer] and its affiliates disclaim any warranty or liability relating to this information or the use thereof. The use of this information is governed by the Terms of Use, available at https://www.[employer]/en/know/kkwhnyuv-orqqriboumxig-wwzzd Copyright Copyright ?? 2022 [employer]. and its affiliates and/or licensors. All rights reserved. documented in this encounter Progress Notes * Dora Hernandez MD - 01/24/2024 8:20 AM CDTSummary: cpx SUBJECTIVE: Tessie Tanner is a 28-year-old female who presents for annual well woman exam and establish care. No problems updated. Current Outpatient Medications: cetirizine-pseudoephedrine ER 5mg-120mg 12 hr tablet, Take 1 tablet by mouth every 12 (twelve) hours., Disp: , Rfl: 0 Multiple Vitamins-Minerals (MULTIVITAMIN WOMEN OR), Take 1 tablet by mouth daily., Disp: , Rfl: PROAIR HFA 108 (90 Base) MCG/ACT inhaler, Inhale 2 puffs into the lungs every 6 (six) hours as needed. FOR WHEEZING, Disp: , Rfl: 4 SYMBICORT 160-4.5 MCG/ACT inhaler, 2 puffs every other day. 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 Tobacco Use Smoking status: Never Passive exposure: Never Smokeless tobacco: Never Vaping Use Vaping status: Never Used Substance and Sexual Activity Alcohol use: No Drug use: No Sexual activity: Yes Partners: Male control/protection: Condom Other Topics Concern Not on file Social History Narrative Lives with her Social Determinants of Health Financial Resource Strain: Not on file Food Insecurity: Not on file Transportation Needs: Not on file Physical Activity: Not on file Stress: Not on file Social Connections: Not on file Intimate Partner Violence: Not on file Housing Stability: Not on file ROS: Review of Systems Constitutional: Negative for activity change, appetite change, chills, diaphoresis, fatigue and fever. HENT: Negative for congestion, ear pain, hearing loss, nosebleeds, postnasal drip, rhinorrhea, sinus pressure, sinus pain, sneezing, sore throat, tinnitus and trouble swallowing. Eyes: Negative for pain, redness and visual disturbance. Respiratory: Negative for cough, choking, shortness of breath and wheezing. Cardiovascular: Negative for chest pain, palpitations and leg swelling. Gastrointestinal: Negative for abdominal pain, blood in stool, constipation, diarrhea, nausea and vomiting. Endocrine: Negative for cold intolerance, heat intolerance, polydipsia and polyuria. Genitourinary: Negative for difficulty urinating, dysuria, flank pain, frequency, hematuria and urgency. Musculoskeletal: Negative for arthralgias, back pain, joint swelling, myalgias and neck pain. Skin: Negative for rash. Neurological: Negative for dizziness, tremors, syncope, weakness, numbness and headaches. Psychiatric/Behavioral: Negative for agitation, confusion, dysphoric mood and sleep disturbance. The patient is not nervous/anxious. OBJECTIVE: Filed Vitals: 01/24/24 0813 BP: 137/85 Pulse: 82 Resp: 16 Temp: 97.7 ??F (36.5 ??C) TempSrc: Temporal SpO2: 100% Weight: 75.3 kg (166 lb) Height: 1.626 m (5' 4 ) Physical Exam Constitutional: Appearance: Normal appearance. HENT: Right Ear: Tympanic membrane and ear canal normal. Left Ear: Tympanic membrane and ear canal normal. Nose: Nose normal. Mouth/Throat: Mouth: Mucous membranes are dry. Pharynx: Oropharynx is clear. Eyes: Extraocular Movements: Extraocular movements intact. Conjunctiva/sclera: Conjunctivae normal. Pupils: Pupils are equal, round, and reactive to light. Cardiovascular: Rate and Rhythm: Normal rate and regular rhythm. Pulses: Normal pulses. Heart sounds: Normal heart sounds. Pulmonary: Effort: Pulmonary effort is normal. Breath sounds: Normal breath sounds. Abdominal: General: Bowel sounds are normal. There is no distension. Palpations: Abdomen is soft. Tenderness: There is no abdominal tenderness. Musculoskeletal: General: No swelling or tenderness. Neurological: General: No focal deficit present. Mental Status: She is alert and oriented to person, place, and time. Psychiatric: Mood and Affect: Mood normal. Behavior: Behavior normal. ASSESSMENT AND PLAN Tessie Tanner is a 28-year-old female Health Care Maintenance: Prevention: - Cervical cancer screening last with Fior Saravia with [facility]. Pt will be scheduling later this year for repeat. - STD screening declined/not indicated - Contraceptive management currently using condoms with plan for in the coming years. - Diabetes screening ordered - Lipid panel screening ordered - Discussed diet changes and exercise - Immunizations: Tdap 2007 - given - Depression screening: neg - HCPOA discussed. Code status FULL No problem-specific Assessment & Plan notes found for this encounter. Return in about 1 year (around 01/23/2025) for CPX, 20 min. DORA HERNANDEZ MD Family Practice documented in this encounter Plan of Treatment Not on file documented as of this encounter Procedures Procedure Name Priority Date/Time Associated Diagnosis Comments HEMOGLOBIN, GLYCOSYLATED Routine 01/24/2024 9:01 AM CDT Routine general medical examination at a health care facility LIPID PANEL Routine 01/24/2024 9:01 AM CDT Routine general medical examination at a health care facility COLLECTION VENOUS BLOOD VENIPUNCTURE Routine 01/24/2024 8:41 AM CDT Routine general medical examination at a health care facility documented in this encounter Results * (ABNORMAL) LIPID PANEL (01/24/2024 9:01 AM CDT) CHOLESTEROL 197 <200 MG/DL 01/24/2024 2:58 PM CDT [facility] TRIGLYCERIDES 55 <150 MG/DL 01/24/2024 2:58 PM CDT [facility] HDL 70 >40 MG/DL 01/24/2024 2:58 PM CDT [facility] LDL-C 116(H) <100 MG/DL 01/24/2024 2:58 PM CDT [facility] VLDL CALCULATION 11 5 - 28 MG/DL 01/24/2024 2:58 PM CDT [facility] CHOL/HDL RATIO 2.8 0.0 - 4.0 01/24/2024 2:58 PM CDT [facility] LDL/HDL 1.7 0.41 - 2.13 01/24/2024 2:58 PM CDT [facility] NON HDL CHOLESTEROL 127 <140 MG/DL 01/24/2024 2:58 PM CDT [facility] 01/24/2024 9:01 AM CDT Dora Hernandez MD LABORATORY Final Re sult [facility] [address] [place] [address], * HEMOGLOBIN, GLYCOSYLATED (01/24/2024 9:01 AM CDT) HGB A1C 4.9 4.5 - 6.2 % 01/24/2024 2:16 PM CDT [facility] ESTIMATED AVG GLUCOSE 94 74 - 106 MG/DL 01/24/2024 2:16 PM CDT [facility] 01/24/2024 9:01 AM CDT Dora Hernandez MD LABORATORY Final Re sult [facility] [address] [place] [address], documented in this encounter Visit Diagnoses Diagnosis Routine general medical examination at a health care facility- Primary Need for knohzqbcxk-iozfoaj-kbyazflff (Tdap) vaccine Need for prophylactic vaccination with combined qoagnegkbv-mrakylw-nkhzspesb (DTP) vaccine documented in this encounter Care Teams Advertising Analyst Relationship Specialty Start Date End Date None, Provider, PCP - General UNKNOWN PHYSICIAN SPECIALTY 06/04/23 documented as of this encounter
--- OUTSIDE RECORDS SUMMARY | 2024-07-12 15:39 | XMS_ITS | Encounter Summary ---
Author Organization [facility] Address [address] [place] [address] Care Team Providers Care Interface Designer Name Role Phone Minnie Mcneil MD Primary Care Provider [phone] Reason for Visit * Reason Comments Refill Request Encounter Details Date Type Department Care Team (Late st Contact Info) Description 12/05/2021 Refill [facility] - REFERENCE INVESTIGATOR [address] [place] [address] Fior Saravia MD [address] [place] [address] Refill Request Social History Tobacco [...] * Telephone Encounter - Tiffanie Duckworth - 12/06/2021 8:43 AM CDT Called pt left a message to schedule an appointment for refills on meds. documented in this encounter Plan of Treatment Not on file documented as of this encounter Visit Diagnoses Not on filedocumented in this encounter Care Teams Interface Designer Relationship Specialty Start Date End Date Minnie Mcneil MD PCP - General Internal Medicine 05/07/19 documented as of this encounter
--- OUTSIDE RECORDS SUMMARY | 2024-07-12 15:39 | XMS_ITS | Encounter Summary ---
Author Organization [facility] Address [address] [facility] [place] [address] Care Team Providers Care Microsoft Application Developer Name Role Phone Minnie Mcneil MD Primary Care Provider [phone] Reason for Visit * Reason Comments Refill Request Encounter Details Date Type Department Care Team (Late st Contact Info) Description 11/10/2021 Refill [facility] - PRESSURE TESTING TECHNICIAN [address] [place] [address] Fior Saravia MD [address] [place] [address] Refill Request Social History Tobacco [...] * Telephone Encounter - Tiffanie Duckworth - 11/10/2021 4:01 PM CDT Last visit: 08/15/21 Last refill: 10/17/21 Next visit: no future appt documented in this encounter Plan of Treatment Not on file documented as of this encounter Visit Diagnoses Not on filedocumented in this encounter Care Teams Microsoft Application Developer Relationship Specialty Start Date End Date Minnie Mcneil MD PCP - General Internal Medicine 05/07/19 documented as of this encounter
--- OUTSIDE RECORDS SUMMARY | 2024-07-12 15:39 | XMS_ITS | Encounter Summary ---
Author Organization [facility] Address [address] [place] [address] Care Team Providers Care Cost And Sales Record Supervisor Name Role Phone Unavailable Primary Care Provider Unavailabl e Reason for Visit * Reason Onset Date Comments Reminder Call 05/27/2018 card mailed to adina CARRILLO on 08/08/18 Encounter Details Date Type Department Care Team (Late st Contact Info) Description 05/27/2018 Telephone [facility] Medical [facility] - VOTATOR MACHINE OPERATOR [address] [place] [address] Fior Saravia MD [address] [place] [address] Reminder Call (card mailed to yuridia WWE on 08/08/18) Social History Tobacco Use Types Packs/Day Years [...]
--- OUTSIDE RECORDS SUMMARY | 2024-07-12 15:39 | XMS_ITS | Encounter Summary ---
Author Organization [facility] Address [address] [place] [address] Care Team Providers Care Computer Aided Design Technician Name Role Phone Minnie Mcneil MD Primary Care Provider [phone] Reason for Visit * Reason Comments Refill Request Encounter Details Date Type Department Care Team (Late st Contact Info) Description 01/01/2022 Refill [facility] - ART GALLERY INTERNSHIP [address] [place] [address] Fior Saravia MD [address] [place] [address] Refill Request Social History Tobacco [...] * Telephone Encounter - Tiffanie Duckworth - 01/01/2022 1:13 PM CDT Last visit: 08/15/20 Last refill: 12/11/21 Next visit: 01/15/22 documented in this encounter Plan of Treatment Not on file documented as of this encounter Visit Diagnoses Not on filedocumented in this encounter Care Teams Computer Aided Design Technician Relationship Specialty Start Date End Date Minnie Mcneil MD PCP - General Internal Medicine 05/07/19 documented as of this encounter
--- OUTSIDE RECORDS SUMMARY | 2024-07-12 15:39 | XMS_ITS | Encounter Summary ---
Author Organization [facility] Address [address] [place] [address] Phone Care Team Providers Care Clay Transporter Name Role Phone Unknown, Notinfile Primary Care Provider Unavail able Zunilda Coles MD Primary Care Provider + Minnie Mcneil MD Primary Care Provider [phone] Tabby Hopkins RN Unavailable Unavailabl e Encounter Details Date Type Department Care Team (Latest Contact Info) Description 05/22/2017 Orders Only [facility] CONVERSION Scanning, Provider Social History Tobacco Use Types Packs/Day Years Used Date Smoking Tobacco: Never Assessed Comments Unknown Sex and Gender Information Value Date Recorded Sex Assigned at Not on file Legal Sex Female 7:31 AM WAREHOUSE MANAGER Gender Identity Female 10/30/2021 8:16 AM CDT Sexual Orientation Not on file documented as of this encounter Plan of Treatment Not on file documented as of this encounter Procedures Procedure Name Priority Date/Time Associated Diagnosis Comments PULMONARY FUNCTION TEST (PFT) 05/22/2017 12:07 PM WAREHOUSE MANAGER documented in this encounter Results * PULMONARY FUNCTION TEST (PFT) (05/22/2017 12:07 PM WAREHOUSE MANAGER) Anatomical Region Laterality Modality PFT us Provider Scanning PFT ORDERABLES Final Result documented in this encounter Visit Diagnoses Not on filedocumented in this encounter Care Teams Clay Transporter Relationship Specialty Start Date End Date Unknown, Notinfile PCP - General 05/22/17 06/02/17 Zunilda Coles MD [address] [place] [address] PCP - General 06/03/17 05/03/19 [place] [address] [facility] [address] [address] PCP - General Internal Medicine 05/04/19 Tabby Hopkins, RN Registered Nurse Pulmonary Disease 04/29/23 documented as of this encounter
--- OUTSIDE RECORDS SUMMARY | 2024-07-12 15:39 | XMS_ITS | Encounter Summary ---
Author Organization [facility] Address [address] [place] [address] Care Team Providers Care Stove Carriage Operator Name Role Phone Minnie Mcneil MD Primary Care Provider [phone] Reason for Visit * Reason Comments Refill Request Encounter Details Date Type Department Care Team (Late st Contact Info) Description 01/30/2022 Refill [facility] - SCRAPER OPERATOR [address] [place] [address] Fior Saravia MD [address] [place] [address] Refill Request Social History Tobacco [...] * Telephone Encounter - Tiffanie Duckworth - 01/30/2022 1:24 PM CDT Last visit: 08/15/20 Last refill: 01/02/22 Next visit: 03/05/22 documented in this encounter Plan of Treatment Not on file documented as of this encounter Visit Diagnoses Not on filedocumented in this encounter Care Teams Stove Carriage Operator Relationship Specialty Start Date End Date Minnie Mcneil MD PCP - General Internal Medicine 05/07/19 documented as of this encounter
--- OUTSIDE RECORDS SUMMARY | 2024-07-12 15:39 | XMS_ITS | Encounter Summary ---
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 Details Date Type Department Care Team (Late st Contact Info) Description 03/05/2022 3:20 PM CDT Office Visit [facility] - STUDIO DIRECTOR [address] [place] [address] Fior Saravia MD [address] [place] [address] Well woman exam with routine [...] Pulse 88 03/05/2022 3:04 PM CDT Temperature - - Respiratory Rate - - Oxygen Saturation - - Inhaled Oxygen Concentration - - Weight 71 kg (156 lb 9.6 oz) 03/05/2022 3:04 PM CDT Height 157.5 cm (5' 2 ) 03/05/2022 3:04 PM CDT Body Mass Index 28.64 03/05/2022 3:04 PM CDT documented in this encounter Progress Notes * Fior Saravia MD - 03/05/2022 3:09 PM CDT Well Woman Exam (Established) HISTORY Tessie is a 26 year old G0 LMP 02/19/22 who returns for WWE. No TAX ACCOUNTANT concerns. Happy w/OCP. No side effects or problems remembering. Wants to continue pill, declines alternative route of contraception. Not planning for a few yrs when she and spouse finish [place] and they move. No breast concerns. Denies domestic violence, depression or SI. TAX ACCOUNTANT History Menarche: 12 yo Menses: regular Sexual activity: sexually active, 1 current partner (), 1 lifetime partner Sexual preference: male Control: COCs STIs: none She denies h/o sexual abuse. Last pap: NILM 08/15/20 H/o abnormal: no HPV vaccination status: has received HPV vaccine Past Medical History: Diagnosis Date ??? Persistent asthma using albuterol 3-4x/wk, triggers: exercise Past Surgical History: Procedure Laterality Date ??? APPENDECTOMY, LAPAROSCOPIC 2006 Current Outpatient Medications Medication ??? albuterol HFA (RELION VENTOLIN) 108 (90 BASE) MCG/ACT inhaler ??? budesonide-formoterol (SYMBICORT) 160-4.5 MCG/ACT inhaler ??? Cetirizine HCl (WAL-ZYR PO) ??? norgestimate-ethinyl estradiol (Cassie) 0.25-35 MG-MCG tablet No current facility-administered medications for this visit. No Known Allergies Social History Tobacco Use ??? Smoking status: Never Smoker ??? Smokeless tobacco: Never Used Vaping Use ??? Vaping Use: Never used Substance Use Topics ??? Alcohol use: Yes Comment: 1x/mo since turning 22 ??? Drug use: No Denies history of drug use. 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 Going to sell their land in [place] and move closer to [facility]. Review of Systems: A 12 point ROS [...] systems reviewed and are negative. EXAMINATION BP 134/84 Pulse 88 Ht 5' 2 Wt 156 lb 9.6 oz GEN: Well dressed and groomed female NEURO: A&Ox3, NAD PSYCH: Mood and affect appropriate HEENT: Normocephalic, atraumatic NECK: Supple and symmetric, without any masses. Trachea is midline RESP: Respirations even and nonlabored CV: Normal peripheral vascular BREASTS: Examined in supine position. No masses, tissue texture changes, [...] changes, or exudate BUS: Normal Bartholin's and Cromberg's glands Urinary: Urethral meatus normal without masses. Urethra without masses or tenderness. No suprapubictenderness associated with bladder Vagina: normal appearing vagina with normal color and discharge, no lesions Cervix: normal appearing cervix without discharge or lesions. Uterus: uterus is normal size, shape, consistency and nontender Adnexa: normal adnexa in size, nontender and no masses Rectovaginal: rectal exam not indicated Anus/perineum: Normal ASSESSMENT ICD-10-CM 1. Well woman exam with routine gynecological exam Z01.419 PLAN Preventive medicine: -Pap smear UTD, Pap smear schedule reviewed with patient -Breast exam and breast awareness reviewed -STI testing: declined. -Contraception: OCP refilled x 1 yr -Healthy lifestyle discussed including a well-balanced diet, exercise etc Follow up one year or sooner PRN. Orders Placed This Encounter ??? norgestimate-ethinyl estradiol (Cassie) 0.25-35 MG-MCG tablet See orders, medications, patient instructions. documented in this encounter Plan of Treatment Not on file documented as of this encounter Visit Diagnoses Diagnosis Well woman exam with routine gynecological exam- Primary Routine gynecological examination documented in this encounter Care Teams Barrel Endshaker Adjuster Relationship Specialty Start Date End Date Minnie Mcneil MD PCP - General Internal Medicine 05/07/19 documented as of this encounter
--- OUTSIDE RECORDS SUMMARY | 2024-07-12 15:39 | XMS_ITS | Encounter Summary ---
Author Organization [facility] Healthcare Address [address] [place] [address] Care Team Providers Care Skilled Nursing Facility Counselor Name Role Phone Unavailable Primary Care Provider Unavailabl e Encounter Details Date Type Department Care Team (Latest Contact Info) Description 03/01/2016 6:39 PM CDT - 03/01/2016 9:20 PM CDT Hospital Encounter [facility] Aamir [place], [address] [address] Asthma with acute exacerbation; Activity involving soccer Social History Tobacco Use Types Packs/Day Years Used Date Smoking Tobacco: Never Assessed Comments Unknown Sex and Gender Information Value Date Recorded Sex Assigned at Not on file Legal Sex Female 7:31 AM WIRELESS TEAM MEMBER Gender Identity Female 10/30/2021 8:16 AM CDT Sexual Orientation Not on file documented as of this encounter Last Filed Vital Signs Vital Sign Reading Time Taken Comments Blood Pressure 125/76 03/01/2016 6:45 PM CDT Pulse 94 03/01/2016 6:45 PM CDT Temperature 36.7 ??C (98 ??F) 03/01/2016 6:45 PM CDT Respiratory Rate - - Oxygen Saturation 98% 03/01/2016 6:45 PM CDT Inhaled Oxygen Concentration - - Weight 61.2 kg (135 lb) 03/01/2016 6:45 PM CDT Height 157.5 cm (5' 2 ) 03/01/2016 6:45 PM CDT Body Mass Index 24.69 03/01/2016 6:45 PM CDT documented in this encounter Plan of Treatment Not on file documented as of this encounter Visit Diagnoses Diagnosis Asthma with acute exacerbation Unspecified asthma, with exacerbation Activity involving soccer documented in this encounter
--- OUTSIDE RECORDS SUMMARY | 2024-07-12 15:39 | XMS_ITS | Encounter Summary ---
Author Organization [facility] Healthcare Address [address] [place] [address] Care Team Providers Care Lead Supply Worker Name Role Phone Zunilda Coles MD Primary Care Provider + Encounter Details Date Type Department Care Team (Latest Contact Info) Description 05/21/2017 10:32 AM RADIOACTIVE WASTE DISPOSAL DISPATCHER - 05/21/2017 11:59 PM RADIOACTIVE WASTE DISPOSAL DISPATCHER Hospital Encounter [facility] [phone] Marixa Lim MD [address] [place], [place] [id number] Discharge Disposition: Discharge to home or self care Social History Tobacco Use Types Packs/Day Years Used Date Smoking Tobacco: Never Assessed Comments Unknown Sex and Gender Information Value Date Recorded Sex Assigned at Not on file Legal Sex Female 7:31 AM RADIOACTIVE WASTE DISPOSAL DISPATCHER Gender Identity Female 10/30/2021 8:16 AM CDT Sexual Orientation Not on file documented as of this encounter Discharge Disposition Disposition Code Departure Means Destination Discharge to home or self care documented in this encounter Plan of Treatment Not on file documented as of this encounter Procedures Procedure Name Priority Date/Time Associated Diagnosis Comments XR CHEST PA LATERAL 2 VIEWS Routine 05/21/2017 4:51 PM RADIOACTIVE WASTE DISPOSAL DISPATCHER ALLERGIC BRONCHOPULMONARY ASPERGILLOSIS CASCADE Routine Gen Lab 05/21/2017 10:41 AM RADIOACTIVE WASTE DISPOSAL DISPATCHER DIFFERENTIAL AUTO Routine Gen Lab 05/21/2017 10:41 AM RADIOACTIVE WASTE DISPOSAL DISPATCHER CBC WITH AUTO DIFFERENTIAL Routine Gen Lab 05/21/2017 10:41 AM RADIOACTIVE WASTE DISPOSAL DISPATCHER VITAMIN D 25 HYDROXY Routine Gen Lab 05/21/2017 10:41 AM RADIOACTIVE WASTE DISPOSAL DISPATCHER TSH Routine Gen Lab 05/21/2017 10:41 AM RADIOACTIVE WASTE DISPOSAL DISPATCHER COMPREHENSIVE METABOLIC PANEL Routine Gen Lab 05/21/2017 10:41 AM RADIOACTIVE WASTE DISPOSAL DISPATCHER DISCHARGE LABORATORY CUMULATIVE REPORT 05/21/2017 12:00 AM RADIOACTIVE WASTE DISPOSAL DISPATCHER documented in this encounter Results * XR Chest Pa Lateral 2 Views (05/21/2017 4:51 PM RADIOACTIVE WASTE DISPOSAL DISPATCHER) Anatomical Region Laterality Modality Body, Chest N/A Radiographic Marcela ging 05/21/2017 4:51 PM RADIOACTIVE WASTE DISPOSAL DISPATCHER Narrative 05/21/2017 5:16 PM RADIOACTIVE WASTE DISPOSAL DISPATCHER ISIAH CLAYTON M.D. BLAS WEI M.D. FINAL REPORT The radiology attending physician has personally reviewed this study, and has reviewed and/or edited this written report and agrees with it. ACC# ??Date Time ??Exam [id number] May 21, 2017 10:51:00 [id number] Chest 2 views Frontl ??and ??Lat EXAMINATION: ??2 view chest radiograph IMPRESSION: ??No comparison is available. ??Lungs are clear. ??There is no pneumothorax, pleural effusion, pulmonary edema or consolidation. Cardiomediastinal silhouette is stable. Electronically signed by: Isiah Clayton M.D. Requested By: MARIXA LIM ??Jennifer Dictated By: ?? BLAS WEI M.D. ??on May 21 2017 11:16A This document has been electronically signed by: ISIAH CLAYTON M.D. on May 21 2017 11:18A Jennifer SCHWARTZ M.D. FINAL REPORT The radiology attending physician has personally reviewed this study, and has reviewed and/or edited this written report and agrees with it. Attending: ??CARINA, ??MARIXA Requesting: ??CARINA, ??MARIXA Requesting Fax: ?? Attending Fax: ?? Attending ID: ??[id number] Requesting ID: ??[id number] Report To 1 ID: ??[id number] ? Report To 1 Name: ??, ?? Report To 1 FAX: ?? NextGen Order #: ?? Procedure Note Miscellaneous, Not In File - 05/21/2017 Jennifer SCHWARTZ M.D. FINAL REPORT The radiology attending physician has personally reviewed this study, and has reviewed and/or edited this written report and agrees with it. ACC# Date Time Exam [id number] May 21, 2017 10:51:00 [id number] Chest 2 views Frontl and Lat EXAMINATION: 2 view chest radiograph IMPRESSION: No comparison is available. Lungs are clear. There is no pneumothorax, pleural effusion, pulmonary edema or consolidation. Cardiomediastinal silhouette is stable. Electronically signed by: Isaih Clayton M.D. Requested By: MARIXA LIM M.D. Dictated By: BLAS WEI M.D. on May 21 2017 11:16A This document has been electronically signed by: ISIAH CLAYTON M.D. on May 21 2017 11:18A Jennifer SCHWARTZ M.D. FINAL REPORT The radiology attending physician has personally reviewed this study, and has reviewed and/or edited this written report and agrees with it. Attending: MARIXA LIM Requesting: MARIXA LIM Requesting Fax: Attending Fax: Attending ID: [id number] Requesting ID: [id number] Report To 1 ID: [id number] Report To 1 Name: , Report To 1 FAX: NextGen Order #: us Marixa Lim MD IMG XR PROCEDURES Edited Result - Final * (ABNORMAL) Allergic bronchopulmonary aspergillosis cascade (05/21/2017 10:41 AM RADIOACTIVE WASTE DISPOSAL DISPATCHER) IgE 384.3(H) 1.0 - 100.0 IUnits/mL [facility] Blood specimen (specimen) 05/21/2017 10:41 AM RADIOACTIVE WASTE DISPOSAL DISPATCHER 05/21/2017 1:18 PM RADIOACTIVE WASTE DISPOSAL DISPATCHER Comment:This order was corre cted from Aspergillus IgG and IgM to Allergic Bronchopulmonary Aspergillosis Yolyn on 09/10/19. Narrative [facility] - 05/21/2017 2:20 PM RADIOACTIVE WASTE DISPOSAL DISPATCHER This order was corrected from Aspergillus IgG and IgM to Allergic Bronchopulmonary Aspergillosis Yolyn on 09/10/19. This order was corrected from Aspergillus IgG and IgM to Allergic Bronchopulmonary Aspergillosis Yolyn on 09/10/19. us Marixa Lim MD LAB BLOOD ORDERABLES Final Resul t Performing Organization Address City/[facility] Co de Phone Number [facility] Department [place] [address] * (ABNORMAL) Vitamin D 25 hydroxy (05/21/2017 10:41 AM RADIOACTIVE WASTE DISPOSAL DISPATCHER) [facility] Vitamin D 25-OH 28.0(L) 30.0 - 100.0 ng/mL [facility] Blood specimen (specimen) 05/21/2017 10:41 AM RADIOACTIVE WASTE DISPOSAL DISPATCHER 05/21/2017 10:56 AM RADIOACTIVE WASTE DISPOSAL DISPATCHER us Marixa Lim MD LAB BLOOD ORDERABLES Final Resul t Performing Organization Address City/[facility]/ZIP Co de Phone Number [facility] Department [place] [address] * Comprehensive metabolic panel (05/21/2017 10:41 AM RADIOACTIVE WASTE DISPOSAL DISPATCHER) [facility] Sodium 139 135 - 145 mmol/L [facility] Potassium, pl 3.9 3.3 - 4.9 mmol/L [facility] CO2 31 22 - 32 mmol/L [facility] BUN 13 8 - 25 mg/dL [facility] Glucose 80 70 - 199 mg/dL [facility] Creatinine 0.83 0.60 - 1.10 mg/dL [facility] Calcium 9.5 8.5 - 10.3 mg/dL [facility] Chloride 101 97 - 110 mmol/L [facility] Albumin 5.0 3.5 - 5.0 g/dL [facility] AST 26 10 - 45 Units/L [facility] ALT 32 7 - 45 Units/L [facility] Alk phos 66 40 - 130 Units/L [facility] Bilirubin, total 0.4 0.1 - 1.2 mg/dL [facility] Protein, pl 8.0 6.5 - 8.5 g/dL [facility] Anion gap 7 2 - 15 mmol/L [facility] Blood specimen (specimen) 05/21/2017 10:41 AM RADIOACTIVE WASTE DISPOSAL DISPATCHER 05/21/2017 10:56 AM RADIOACTIVE WASTE DISPOSAL DISPATCHER Marixa Lim MD LAB BLOOD ORDERABLES Final Resul t Performing Organization Address [facility] de Phone Number [facility] [place] [address] * TSH (05/21/2017 10:41 AM RADIOACTIVE WASTE DISPOSAL DISPATCHER) Pathologist [facility] Thyroid Stimulating Hormone 3.36 0.30 - 4.20 mcIUnit/mL [facility] Comment: Interpretive Data Hyperthyroid: ??<0.1 mcIUnit/mL Hypothyroid: ??>12.0 mcIUnit/mL Current interpretive data was last revised on 00. Blood specimen (specimen) 05/21/2017 10:41 AM RADIOACTIVE WASTE DISPOSAL DISPATCHER 05/21/2017 10:56 AM RADIOACTIVE WASTE DISPOSAL DISPATCHER us Marixa Lim MD LAB BLOOD ORDERABLES Final Resul t Performing Organization Address [facility] de Phone Number [facility] [place] [address] * (ABNORMAL) Differential, auto (05/21/2017 10:41 AM RADIOACTIVE WASTE DISPOSAL DISPATCHER) Pathologist [facility] Neutrophil pct 57.6 % [facility] Imm gran pct 0.3 % [facility] Lymphocyte pct 25.1 % [facility] Monocyte pct 7.6 % [facility] Eosinophil pct 8.5 % [facility] Basophil pct 0.9 % [facility] Neutrophil abs 3.93 1.70 - 6.50 K/cumm [facility] Imm gran abs 0.02 0.00 - 0.10 K/cumm [facility] Lymphocyte abs 1.71 0.80 - 3.30 K/cumm [facility] Monocyte abs 0.52 0.20 - 0.80 K/cumm [facility] Eosinophil abs 0.58(H) 0.00 - 0.50 K/cumm [facility] Basophil abs 0.06 0.00 - 0.10 K/cumm [facility] Blood specimen (specimen) 05/21/2017 10:41 AM RADIOACTIVE WASTE DISPOSAL DISPATCHER 05/21/2017 10:56 AM RADIOACTIVE WASTE DISPOSAL DISPATCHER us Marixa Lim MD LAB BLOOD ORDERABLES Final Resul t [facility] [place] [address] * CBC with auto differential (05/21/2017 10:41 AM RADIOACTIVE WASTE DISPOSAL DISPATCHER) WBC 6.82 3.80 - 9.90 K/cumm [facility] RBC 5.06 3.90 - 5.20 M/cumm [facility] Hgb 14.8 11.9 - 15.5 g/dL [facility] Hct 44.5 35.6 - 45.5 % [facility] MCV 87.9 81.3 - 96.4 fL [facility] MCH 29.2 27.1 - 33.3 pg [facility] MCHC 33.3 32.3 - 35.7 g/dL [facility] RDW CV 12.1 11.1 - 14.9 % [facility] RDW SD 39.3 35.7 - 48.1 fL [facility] Plt 210 150 - 400 K/cumm [facility] MPV 10.1 9.1 - 12.3 fL [facility] NRBC 0.0 0.0 - 0.2 % [facility] NRBC abs 0.00 0.00 - 0.01 K/cumm [facility] Blood specimen (specimen) 05/21/2017 10:41 AM RADIOACTIVE WASTE DISPOSAL DISPATCHER 05/21/2017 10:56 AM RADIOACTIVE WASTE DISPOSAL DISPATCHER us Marixa Lim MD LAB BLOOD ORDERABLES Final Resul t [facility] [place] [address] * DISCHARGE LABORATORY CUMULATIVE REPORT (05/21/2017 12:00 AM RADIOACTIVE WASTE DISPOSAL DISPATCHER) Narrative 05/21/2017 12:00 AM RADIOACTIVE WASTE DISPOSAL DISPATCHER Ordered by an unspecified provider. Frank Provider LAB BLOOD ORDERABLES Meena l Result documented in this encounter Visit Diagnoses Not on filedocumented in this encounter Care Teams Lead Supply Worker Relationship Specialty Start Date End Date Zunilda Coles MD [address] [place] [address] PCP - General 05/21/17 05/21/17 documented as of this encounter
--- OUTSIDE RECORDS SUMMARY | 2024-07-12 15:39 | XMS_ITS | Encounter Summary ---
Author Organization [facility] Address [facility] [place] [address] Care Team Providers Care Sports Lawyer Name Role Phone Unavailable Primary Care Provider Unavailabl e Reason for Visit * Reason Comments Breathing Problem reports asthma attac k while playing soccer tonight, seen at outside facility this AM for asthma and given IV steroids, feels better after neb given by EMS Encounter Details Date Type Department Care Team (Late st Contact Info) Description 04/12/2017 12:43 AM CDT - 04/12/2017 12:46 AM CDT Emergency ER at [address] [address] Uncomplicated asthma, unspecified asthma severity, unspecified whether persistent (HCC) Discharge Disposition: Left Against Medical Advice/Discontinued Care Social History Tobacco Use Types Packs/Day Years Used Date Smoking Tobacco: Never Assessed Sex and Gender Information Value Date Recorded Sex Assigned at Not on file Gender Identity Not on file Sexual Orientation Not on file documented as of this encounter Last Filed Vital Signs Vital Sign Reading Time Taken Comments Blood Pressure 122/89 04/12/2017 12:06 AM CDT Pulse 64 04/12/2017 12:06 AM CDT Temperature 36.6 ??C (97.8 ??F) 04/12/2017 12:06 AM C DT Respiratory Rate 16 04/12/2017 12:06 AM CDT Oxygen Saturation 100% 04/12/2017 12:06 AM CDT Inhaled Oxygen Concentration - - Weight 63.5 kg (140 lb) 04/11/2017 10:19 PM CDT Height 157.5 cm (5' 2 ) 04/11/2017 10:19 PM CDT Body Mass Index 25.61 04/11/2017 10:19 PM CDT documented in this encounter ED Notes * Sowmya Daniel RN - 04/12/2017 12:44 AM CDT Pt signed release of responsibility form and LWBS after triage. Pt reported she didn't want to waitto be seen. Pt A&Ox4, ambulatory, NAD, and leaves ED with all belongings. * Abi Caldwell RN - 04/11/2017 10:23 PM CDT No wheezing or distress noted while in triage. Pt sating 100% on RA upon arrival. documented in this encounter Plan of Treatment Not on file documented as of this encounter Visit Diagnoses Diagnosis Uncomplicated asthma, unspecified asthma severity, unspecified whether persistent (HCC) documented in this encounter
--- OUTSIDE RECORDS SUMMARY | 2024-07-12 15:39 | XMS_ITS | Clinical Summary ---
Author Organization [facility] Address [address] [place] [address]. [place] [address] [place] [address] Care Team Providers Care Wrecking Supervisor Name Role Phone None, Provider MD Primary Care Provider Unavaila ble Allergies No known active allergies Medications SYMBICORT 160-4.5 MCG/ACT inhaler 2 puffs every other day. qod 5 02/25/2019 Active PROAIR HFA 108 (90 Base) MCG/ACT inhaler Inhale 2 puffs into the lungs every 6 (six) hours as needed. FOR WHEEZING 4 12/30/2018 Active cetirizine-pseu doephedrine ER 5mg-120mg 12 hr tablet Take 1 tablet by mouth every 12 (twelve) hours. 0 07/27/2018 Active Multiple Vitamins-Minera ls (MULTIVITAMIN WOMEN OR) Take 1 tablet by mouth daily. Active Active Problems Problem Noted Date Diagnosed Date Mild intermittent asthma without complication (H HS/HCC) 03/02/2019 Vocal cord dysfunction 04/14/2018 Immunizations Name Administration Dates Next Due Dtap (Generic) 11/11/2001, 7,1996,07/30,1996 HPV4 (Gardasil) 07/04/2011,02/28/2011,12/27/2010 Hepatitis A (Generic) 07/04/2011,12/27/2010 Hepatitis B 1996,1996,1996 Hib (Generic) 06/18/1997, 7,1996,05/29 Influenza Adult (Generic) 04/22/2023,12/2021,03/30/2021,04/14,03/27/2019,04/14/2018,02/23/2016 MMR (MMRII) 11/11/2001,03/16/1997 MODERNA COVID-19 (12+), MRNA , LNP-S, PF, 50 MCG/0.5 ML (SPIKEVAX) 04/22/2023 Meningococcal (Generic) 08/07/2013,02/20/2008 Polio Opv (Generic) 11/11/2001, 7,1996,05/29 Tdap (Adacel) 01/24/2024 Tdap (Generic) 02/04/2007 Varicella (Varivax) 02/04/2007,03/16/1997 Family History Medical History Relation Comments Congenital heart disease Brother Hypertension Father Early Hearing Loss Maternal Grandmother Stroke Maternal Grandmother Hypertension Mother Cancer Paternal Grandfather Bone Hyperthyroidism Sister Relation Status Comments Brother Alive Father Alive Maternal Grandmother Mother Alive Paternal Grandfather Sister Alive Social History Tobacco Use Types Packs/Day Years [...] 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 Date 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 Not on file Not on file Last Filed Vital Signs [...] Mass Index 28.49 01/24/2024 8:13 AM CDT Plan of Treatment Health Maintenance Due Date Last Done Comments Pneumococcal Vaccine: Pediatrics (0 to 5 Years) and At-Risk Patients (6 to 64 Years) (1 of 2 - PCV) 2002 Cervical Cancer Screening Pap Smear (Age 21 to 29) Every 3 Years 08/15/2023 08/15/2020, 08/15/2020 Cervical Cancer Screening 08/15/2023 COVID-19 Vaccine ( season) 2024 04/22/2023, 05/16/2021, 10/17/2020, Additional history exists Influenza Adult (#1) 2024 04/22/2023, 04/12/2022, 03/30/2021, Additional history exists Annual Physical 01/23/2025 01/24/2024 DTaP, Tdap and Td Vaccines (8 - Td or Tdap) 01/23/2034 01/24/2024, 02/04/2007, 11/11/2001, Additional history exists Hepatitis C 01/23/2054 Postponed from 2014 (Patient Refused) Hepatitis B Vaccines Completed 1996, 1996, 1996 HPV Vaccines Completed 07/04/2011, 02/06, 12/27/2010 Meningococcal Vaccine Aged Out 08/07/2013, 008 No longer eligible based on patient's age to complete this topic RSV Immunizations Under 20 Months Aged Out No longer eligible based on patient's age to complete this topic Procedures Procedure Name Priority Date/Time Associated Diagnosis Comments OUTSIDE CYTOPATH CERV/VAG IN TERPRET (PAP) (SCAN ORDER) Routine 08/15/2020 from Last 3 Months or Most Recently Relevant to Health Maintenance Results * PAP SMEAR (08/15/2020) 08/15/2020 us Documents Scanned SCANNING Final Result [facility] from Last 3 Months or Most Recently Relevant to Health Maintenance Insurance [employer] Care Teams Wrecking Supervisor Relationship Specialty Start Date End Date None, Provider, PCP - General UNKNOWN PHYSICIAN SPECIALTY 06/04/23
--- OUTSIDE RECORDS SUMMARY | 2024-07-12 15:39 | XMS_ITS | Encounter Summary ---
Author Organization [facility] Address [facility] [place] [address] Care Team Providers Care Stock Saw Operator Name Role Phone Unavailable Primary Care Provider Unavailabl e Reason for Visit * Reason Comments Establish Care Well Women Exam Encounter Details Date Type Department Care Team (Late st Contact Info) Description 08/07/2017 2:00 PM TICKET SALES SUPERVISOR Office Visit [facility] Medical [facility] - E COMMERCE MERCHANDISING COORDINATOR [address] [place] [address] Fior Saravia MD [address] [place] [address] Well woman exam with routine [...] Sign Reading Time Taken Comments Blood Pressure 116/88 08/07/2017 2:00 PM TICKET SALES SUPERVISOR Pulse - - Temperature - - Respiratory Rate - - Oxygen Saturation - - Inhaled Oxygen Concentration - - Weight 64.8 kg (142 lb 12.8 oz) 08/07/2017 2:00 PM TICKET SALES SUPERVISOR Height 160 cm (5' 3 ) 08/07/2017 2:00 PM TICKET SALES SUPERVISOR Body Mass Index 25.3 08/07/2017 2:00 PM TICKET SALES SUPERVISOR documented in this encounter Progress Notes * Fior Saravia MD - 08/07/2017 1:57 PM CST Well Woman Exam (New) HISTORY Tessie is a 22 y.o. G0 LMP 07/25/17 who presents for to establish care and for Well Woman Exam. Shedenies breast concerns - doing SBE as instructed by her public service officer. She denies abnormal vaginal discharge, vulvar itching/irritation, or pelvic pain. Patient does not have other gynecological issues or concerns. Risk Factors: The pt does exercise regularly and does eat a balanced diet. 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 Last pap: never H/o abnormal: no HPV vaccination status: has received HPV vaccine Past Medical History: Diagnosis Date ??? Persistent asthma using albuterol 3-4x/wk, triggers: exercise Past Surgical History: Procedure Laterality Date ??? APPENDECTOMY, LAPAROSCOPIC 2006 Current Outpatient Prescriptions Medication ??? albuterol HFA (RELION VENTOLIN) 108 (90 BASE) MCG/ACT inhaler ??? Cholecalciferol (VITAMIN D PO) ??? budesonide-formoterol (SYMBICORT) 160-4.5 MCG/ACT inhaler ??? Cetirizine HCl (WAL-ZYR PO) No current facility-administered medications for this visit. No Known Allergies Social History Substance Use Topics ??? Smoking status: Never Smoker ??? Smokeless tobacco: Never Used ??? Alcohol use Yes Comment: 1x/mo since turning 22 Denies history of drug use. 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 Family History Problem Relation Age of Onset ??? Hypertension Father O/w denies fam h/o breast, uterine, ovarian, cervical, colon or other GI cancer. Review of Systems: A 10 point ROS was reviewed in addition to the symptoms per HPI. Review of Systems Constitutional: Negative for chills and fever. Respiratory: Positive for shortness of breath. Gastrointestinal: Negative for abdominal pain, constipation, diarrhea, nausea and vomiting. Genitourinary: Negative for dysuria. All other systems reviewed and are negative. EXAMINATION BP 116/88 Ht 5' 3 Wt 142 lb 12.8 oz BMI 25.3 kg/m2 GEN: Well dressed and groomed female, appears younger than stated age NEURO: A&Ox3, NAD PSYCH: Mood and affect appropriate HEENT: Normocephalic, atraumatic NECK: Supple and symmetric, without any masses. Trachea is midline RESP: clear to auscultation bilaterally, no wheezing, Respirations even and nonlabored CV: regular rhythm, normal S1 and S2, without murmurs, gallops or rubs BREASTS: Examined in upright and supine position - carey stage IV. No masses, tissue texture changes, or dimpling. No skin changes or nipple discharge. Nontender. Breast self-exam and breast awareness taught. SKIN: No rashes or lesions ABDOMEN: Soft, NT/ND. No masses or hepatosplenomegaly. No hernia. Well healed 2cm incision in RLQ EXT: Full range of motion, extremities normal, atraumatic, no cyanosis or edema LYMPHATIC: No axillary or supraclavicular adenopathy External Genitalia: Normal vulva: no lesions, masses, epithelial changes, or exudate BUS: Normal Bartholin's and Waikele's glands Urinary: Urethral meatus normal without masses. Urethra without masses or tenderness. No suprapubictenderness associated with bladder Vagina: normal appearing vagina with normal color and discharge, no lesions, virginal introitus Cervix: normal appearing cervix without discharge or lesions, nulliparous os, anterior and deviatedto right. A thin prep pap was obtained without difficulty Uterus: uterus is normal size, shape, consistency and nontender Adnexa: normal adnexa in size, nontender and no masses Rectovaginal: rectal exam not indicated Anus/perineum: Normal ASSESSMENT ICD-10-CM 1. Well woman exam with routine gynecological exam Z01.419 PAP IG LB PLAN 1. Preventive medicine: -Pap smear done today, Pap smear schedule reviewed with patient -Breast exam and breast awareness reviewed -STI testing: declined. -HPV vaccine: completed -Contraception: declines, abstinent. Discussed that there options and we can address next year or sooner if she plans to be sexually active. -Healthy lifestyle discussed including a well-balanced diet, exercise Follow up one year or sooner PRN. Orders Placed This Encounter ??? PAP IG LB See orders, medications, patient instructions. ET SALES SUPERVISOR documented in this encounter Plan of Treatment Not on file documented as of this encounter Procedures Procedure Name Priority Date/Time Associated Diagnosis Comments PAP IG LB Routine 08/07/2017 2:14 PM TICKET SALES SUPERVISOR Well woman exam with routine gynecological exam documented in this encounter Results * PAP IG LB (08/07/2017 2:14 PM TICKET SALES SUPERVISOR) Diagnosis [facility] ACCOUNT BILL Comment:NEGATIVE FOR INTRAEP ITHELIAL LESION AND MALIGNANCY. Specimen Adequacy [facility] ACCOUNT BILL Comment: Satisfactory for evaluation. ??Endocervical and/or squamous metaplastic cells (endocervical component) are present. Clinician Provided ICD10 [facility] ACCOUNT BILL Comment:Z01.419 Performed by [facility] ACCOUNT BILL Comment:Arianne Merida Cytot echnologist (ASCP) Comment . [facility] ACCOUNT BILL Note [facility] ACCOUNT BILL Comment: The Pap smear is a screening test designed to aid in the detection of premalignant and malignant conditions of the uterine cervix. ??It is not a diagnostic procedure and should not be used as the sole means of detecting cervical cancer. ??Both false-positive and false-negative reports do occur. ? . IGLBP CPT Code Automation [facility] ACCOUNT BILL Comment: This liquid based ThinPrep(R) pap test was screened with the use of an image guided system. Pathology/Cytolog y PART OF UTERINE CERVIX / Unknown 08/07/2017 2:14 PM TICKET SALES SUPERVISOR 08/08/2017 Narrative [facility] ACCOUNT BILL - 08/09/2017 3:15 PM TICKET SALES SUPERVISOR Source.............Cervix LMP / Prev Treat...ULV=[id number];None No. of containers..01 ThinPrep Vial Resulting Agency Comment [facility] [address] [place] [address] ??[facility] TSE [id number] Fior Saravia MD LAB - PATHOLOGY/CYTO LOGY ORDERABLES [facility] ACCOUNT BILL [address] [place] [address] documented in this encounter Visit Diagnoses Diagnosis Well woman exam with routine gynecological exam- Primary Routine gynecological examination documented in this encounter
--- OUTSIDE RECORDS SUMMARY | 2024-07-12 15:39 | XMS_ITS | Encounter Summary ---
Author Organization [facility] Address [address] [place] [address] Care Team Providers Care Staffing Associate Name Role Phone Minnie Mcneil MD Primary Care Provider [phone] Reason for Visit * Reason Comments Refill Request Encounter Details Date Type Department Care Team (Late st Contact Info) Description 10/16/2021 Refill [facility] - SILVER SOLDERER [address] [place] [address] Fior Saravia MD [address] [place] [address] Refill Request Social History Tobacco [...] encounter Miscellaneous Notes * Telephone Encounter - Doreen Ho - 10/16/2021 10:56 AM CDT Last WWE: 08/15/20 Next appt: cancelled 08/16/21 appt, message sent to pt to schedule WWE Last filled: 11/18/20 (84 tab x 3 refills) Requested Prescriptions Pending Prescriptions Disp Refills ??? JAVON 0.25-35 MG-MCG tablet [Pharmacy Med Name: JAVON 0.25-0.035 MG TABLET] 84 tablet 3 Sig: TAKE 1 TABLET BY MOUTH EVERY DAY documented in this encounter Plan of Treatment Not on file documented as of this encounter Visit Diagnoses Not on filedocumented in this encounter Care Teams Staffing Associate Relationship Specialty Start Date End Date Minnie Mcneil MD PCP - General Internal Medicine 05/07/19 documented as of this encounter
--- OUTSIDE RECORDS SUMMARY | 2024-07-12 15:39 | XMS_ITS | Encounter Summary ---
Author Organization [facility] Address [address] [place] [address] Care Team Providers Care Physician Relations Manager Name Role Phone Minnie Mcneil MD Primary Care Provider [phone] Reason for Visit * Reason Comments Refill Request Encounter Details Date Type Department Care Team (Late st Contact Info) Description 11/18/2020 Refill [facility] - CERAMIC SAW TENDER [address] [place] [address] Fior Saravia MD [address] [place] [address] Refill Request Social History Tobacco [...] encounter Miscellaneous Notes * Telephone Encounter - Criselda Brown MA CCC-A - 11/18/2020 9:25 AM CDT Med last filled 09/08/2019 Last WWE 08/15/2020 documented in this encounter Plan of Treatment Not on file documented as of this encounter Visit Diagnoses Not on filedocumented in this encounter Care Teams Physician Relations Manager Relationship Specialty Start Date End Date Minnie Mcneil MD PCP - General Internal Medicine 05/07/19 documented as of this encounter
--- OUTSIDE RECORDS SUMMARY | 2024-07-12 15:39 | XMS_ITS | Encounter Summary ---
Author Organization [facility] Address [address] [place] [address]. 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
--- OUTSIDE RECORDS SUMMARY | 2024-07-12 15:40 | XMS_ITS | Encounter Summary ---
Author Organization [facility] Address [address] [place] [address]. [place] [address] [place] [address] Care Team Providers Care Autocad Designer Name Role Phone Unavailable Primary Care Provider Unavailabl e Encounter Details Date Type Department Care Team (Late st Contact Info) Description 03/14/2016 Abstract [facility] Clinics Conversion Md, Generic Conversion, Social History Tobacco Use Types Packs/Day Years Used Date Smoking Tobacco: Never Assessed Comments Unknown Sex and Gender Information Value Date Recorded Sex Assigned at Not on file Legal Sex Female 7:39 PM CDT Gender Identity Not on file Sexual Orientation Not on file documented as of this encounter Last Filed Vital Signs Vital Sign Reading Time Taken Comments Blood Pressure 112/66 03/14/2016 9:27 AM CDT Pulse 70 03/14/2016 9:27 AM CDT Temperature - - Respiratory Rate - - Oxygen Saturation - - Inhaled Oxygen Concentration - - Weight 60 kg (132 lb 4 oz) 03/14/2016 9:27 AM CD T Height 163.8 cm (5' 4.5 ) 03/14/2016 9:27 AM CDT Body Mass Index 22.35 03/14/2016 9:27 AM CDT documented in this encounter Progress Notes * Bharat Delvalle MD - 03/14/2016 12:00 AM CDT CHIEF COMPLAINT The Chief Complaint is: L shoulder injury, hurt at soccer game 03/13/2016. HISTORY OF PRESENT ILLNESS Tessie Noriega is a 21 year old female. 21yo female for evaluation, left shoulder injury. Occured last night in soccer game. fall onto tip of shoulder, continued to play some after, but had to be removed. Pain persists today, some better. Patient is left hand dominant. No previous shoulder issues. Pain increased with ROM. No pop with injury, no deformity noted. ? Date of last menstruation 02/29/2016. CURRENT MEDICATION ? None SOCIAL HISTORY Behavioral: Smoking status: Never smoker. ALLERGIES ? No Known Allergies PHYSICAL FINDINGS ? Vitals taken 03/14/2016 09:27 am BP-Sitting R 112/66 mmHg BP Cuff Size Regular Pulse Rate-Sitting 70 bpm Respiration Rate 16 per min Temp-Oral 98.3 F Height 64.5 in Weight 132 lbs 4 oz Body Mass Index 22.3 kg/m2 Body Surface Area 1.65 m2 Oxygen Saturation 99 % General Appearance: ?? Well developed. ?? Well nourished. ?? In no acute distress. Lungs: ?? No wheezing was heard. ?? No rhonchi were heard. ?? No rales/crackles were heard. Cardiovascular: Heart Rate And Rhythm: ?? Normal. Heart Sounds: ?? Normal. Murmurs: ?? No murmurs were heard. Left shoulder exam no deformity mild TTP anterior, lateral shoulder ROM intact, some pain with forward flexion Strength 4+/5 with some pain noted Empty can equivocal. ASSESSMENT 1. Left shoulder pain. S/P fall yesterday onto tip of shoulder. Some pain with ROM today. Discussedoptions, start with xrays today. If negative, likely shoulder sprain. Ok for activity as tolerates.Monitor. Discussed natural course and warning signs. Fu prn. PLAN ? Pain in left shoulder Radiology/X-Ray: Shoulder L R B Bharat Delvalle MD Electronically signed by: Bharat Delvalle MD Date: 03/14/2016 09:56 ICATOR SPRAYER documented in this encounter Miscellaneous Notes * Letter - Bharat Delvalle MD - 03/14/2016 12:00 AM CDT 03-14-2016 [address] [place] [id number] , Tessie Noriega [address] [place] [id number] : 1995 Radiology X-Ray Shoulder L R B Pain in left [id number] Normal [] Stat [] Electronically Signed By: Bharat Delvalle MD ICATOR SPRAYER documented in this encounter Plan of Treatment Not on file documented as of this encounter Visit Diagnoses Not on filedocumented in this encounter
--- OUTSIDE RECORDS SUMMARY | 2024-07-12 15:40 | XMS_ITS | Encounter Summary ---
Author Organization [facility] Address [address] [place] [address]. [place] [address] [place] [address] Care Team Providers Care Adventure Education Teacher Name Role Phone Minnie Mcneil MD Primary Care Provider [phone] Encounter Details Date Type Department Care Team (Late st Contact Info) Description 04/17/2016 Abstract [facility] [address] [place] [address] Romeo Steele MD [address] [place] [address] Social History Tobacco Use Types Packs/Day Years Used Date Smoking Tobacco: Never Assessed AUDIT-C Answer Date Recorded Frequency of Alcohol Consumption Never 03/02/2019 Average Number of Drinks Not on file 019 Frequency of Binge Drinking Not on file 02/06 Comments Unknown Sex and Gender Information Value Date Recorded Sex Assigned at Not on file Legal Sex Female 7:39 PM CDT Gender Identity Not on file Sexual Orientation Not on file documented as of this encounter Plan of Treatment Not on file documented as of this encounter Visit Diagnoses Not on filedocumented in this encounter Care Teams Adventure Education Teacher Relationship Specialty Start Date End Date Minnie Mcneil MD PCP - General INTERNAL MEDICINE 03/02/19 06/03/23 documented as of this encounter
--- OUTSIDE RECORDS SUMMARY | 2024-07-12 15:40 | XMS_ITS | Encounter Summary ---
Author Organization [facility] Address [address] [place] [address]. [place], [place] [address] [place] [address] Care Team Providers Care Acquisition Marketing Coordinator Name Role Phone Minnie Mcneil MD Primary Care Provider Encounter Details Date Type Department Care Team (Latest Contact Info) Description 10/30/2021 Scan HEALTH INFO SRVCS Scanned, Documents Social History Tobacco Use Types Packs/Day Years Used Date Smoking Tobacco: Never Smokeless Tobacco: Never Alcohol Use Standard Drinks/Week Comments No 0 (1 standard drink = 0.6 oz pur e alcohol) AUDIT-C Answer Date Recorded Frequency of Alcohol Consumption Never 03/02/2019 Average Number of Drinks Not on file 019 Frequency of Binge Drinking Not on file 02/06 Comments No Sex and Gender Information Value Date Recorded Sex Assigned at Not on file Legal Sex Female 7:39 PM CDT Gender Identity Not on file Sexual Orientation Not on file documented as of this encounter Plan of Treatment Not on file documented as of this encounter Visit Diagnoses Not on filedocumented in this encounter Care Teams Acquisition Marketing Coordinator Relationship Specialty Start Date End Date Minnie Mcneil MD PCP - General INTERNAL MEDICINE 03/02/19 06/03/23 documented as of this encounter
--- OUTSIDE RECORDS SUMMARY | 2024-07-12 15:40 | XMS_ITS | Encounter Summary ---
Author Organization [facility] Address [address] [place] [address]. [place] [address] [place] [address] Care Team Providers Care Cable Technician Name Role Phone Minnie Mcneil MD Primary Care Provider [phone] Reason for Visit * Reason Comments Pap Smear (SCAN) Encounter Details Date Type Department Care Team ([facility] [address] Contact Info) Description 08/15/2020 Scan HEALTH INFO SRVCS Scanned, Documents Pap Smear (SCAN) Social History Tobacco Use Types Packs/Day Years [...] IN TERPRET (PAP) (SCAN ORDER) Routine 08/15/2020 documented in this encounter Results * PAP SMEAR (08/15/2020) 08/15/2020 us Documents Scanned SCANNING Final Result [facility] ONBASE documented in this encounter Visit Diagnoses Not on filedocumented in this encounter Care Teams Cable Technician Relationship Specialty Start Date End Date Minnie Mcneil MD PCP - General INTERNAL MEDICINE 03/02/19 06/03/23 documented as of this encounter
--- OUTSIDE RECORDS SUMMARY | 2024-07-12 15:40 | XMS_ITS | Encounter Summary ---
Author Organization [facility] Address [address] [place] [address]. [place], [place] [address] [place] [address] Care Team Providers Care Inspector Of Weights And Measures Name Role Phone Unavailable Primary Care Provider Unavailabl e Encounter Details Date Type Department Care Team (Late st Contact Info) Description 03/14/2016 Abstract [facility] Conversion Md, Generic Conversion, Social History Tobacco [...]
--- OUTSIDE RECORDS SUMMARY | 2024-07-12 15:40 | XMS_ITS | Encounter Summary ---
Author Organization [facility] Address [address] [place] [address]. [place] [address] [place] [address] Care Team Providers Care Saddle Mechanic Name Role Phone Minnie Mcneil MD Primary Care Provider Encounter Details Date Type Department Care Team (Late st Contact Info) Description 05/15/2016 Abstract [facility] [address] [place] [address] Romeo Steele MD [address] [place] [address] Social History Tobacco Use Types Packs/Day Years [...] on filedocumented in this encounter Care Teams Saddle Mechanic Relationship Specialty Start Date End Date Minnie Mcneil MD PCP - General INTERNAL MEDICINE 03/02/19 06/03/23 documented as of this encounter
--- OUTSIDE RECORDS SUMMARY | 2024-07-12 15:40 | XMS_ITS | Encounter Summary ---
Author Organization [facility] Address [address] [place] [address]. [place] [address] [place] [address] Care Team Providers Care English Faculty Member Name Role Phone Unavailable Primary Care Provider Unavailabl e Encounter Details Date Type Department Care Team (Late st Contact Info) Description 03/14/2016 Abstract [facility] [address] [place] [address] Bharat Delvalle MD [address] [facility] [address] [place] [address] Social History Tobacco Use Types Packs/Day Years Used Date Smoking Tobacco: Never Assessed Comments Unknown Sex and Gender Information Value Date Recorded Sex Assigned at Not on file Legal Sex Female 7:39 PM CDT Gender Identity Not on file Sexual Orientation Not on file documented as of this encounter Plan of Treatment Not on file documented as of this encounter Visit Diagnoses Diagnosis Pain in left shoulder Pain in joint, shoulder region documented in this encounter
--- OUTSIDE RECORDS SUMMARY | 2024-07-12 15:40 | XMS_ITS | Encounter Summary ---
Author Organization [facility] Address [address] [place] [address]. [place] [address] [place] [address] Care Team Providers Care Interior Block Wirer Name Role Phone Minnie Mcneil MD Primary Care Provider Reason for Visit * Reason Comments New Patient establish care Encounter Details Date Type Department Care Team (Late st Contact Info) Description 03/02/2019 8:20 AM CDT Office Visit [facility] Family & Internal Medicine [address] [phone] Minnie Mcneil MD [address] [place] [id number] New Patient (establish care ) Social History Tobacco Use Types Packs/Day [...] Sign Reading Time Taken Comments Blood Pressure 116/72 03/02/2019 8:39 AM CDT Pulse 72 03/02/2019 8:39 AM CDT Temperature 37.1 ??C (98.8 ??F) 03/02/2019 8:39 AM CD T Respiratory Rate 16 03/02/2019 8:39 AM CDT Oxygen Saturation 98% 03/02/2019 8:39 AM CDT Inhaled Oxygen Concentration - - Weight 60.7 kg (133 lb 12.8 oz) 03/02/2019 8:39 AM CDT Height 163 cm (5' 4.17 ) 03/02/2019 8:39 AM CDT Body Mass Index 22.84 03/02/2019 8:39 AM CDT documented in this encounter Progress Notes * Minnie Mcneil MD - 03/02/2019 8:20 AM CDT Reason for Visit: New Patient (establish care ) HPI A 23-year-old female 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 She has a history of allergic rhinitis and asthma which has been extremely well controlled since she started Symbicort. She does not presently need any refills. She takes Junel iron per her MANAGER PROGRAM MANAGEMENT that she sees regularly. She has no other health problems. Her last tetanus was 8 years ago. She does not smoke. Blood pressure and weight are good. ROS See HPI for pertinent positives. Constitutional: Normal. ENT: Normal. Cardiovascular: Normal. Respiratory: Asthma well controlled. Gastrointestinal: Normal. Genitourinary: Normal. Musculoskeletal: Normal. Integumentary: Normal. Neurological: Normal. Psychiatric: Normal. Current Outpatient Medications: ??? cetirizine-pseudoephedrine ER 5mg-120mg 12 hr tablet, Take 1 tablet by mouth every 12 (twelve) hours., Disp: , Rfl: 0 ??? JUNEL FE 07/27 1-20 MG-MCG tablet, Take 1 tablet by mouth daily., Disp: , Rfl: 11 ??? PROAIR HFA 108 (90 Base) MCG/ACT inhaler, Inhale 2 puffs into the lungs every 6 (six) hours as needed. FOR WHEEZING, Disp: , Rfl: 4 ??? SYMBICORT 160-4.5 MCG/ACT inhaler, 2 puffs 2 (two) times daily., Disp: , Rfl: 5 No Known Allergies Past Medical History: Diagnosis Date ??? Appendicitis Past Surgical History: Procedure Laterality Date ??? APPENDECTOMY Social History Socioeconomic History ??? Marital status: Single Spouse name: Not on file ??? Number [...] Substance and Sexual Activity ??? Alcohol use: No Frequency: Never ??? Drug use: No ??? Sexual activity: No Lifestyle ??? Physical activity: Days per week: Not on file Minutes per session: Not on file ??? Stress: Not on file Relationships ??? Social connections: Talks on phone: Not on file Gets together: Not on file Attends sabianism service: Not on file Active member of [...] ??? Not on file Social History Narrative ??? Not on file Family History Problem Relation Name Age of Onset ??? Hypertension Mother ??? Hypertension Father Family Status Relation Name Status ??? Mother (Not Specified) ??? Father (Not Specified) Filed Vitals: 03/02/19 0839 BP: 116/72 Pulse: 72 Resp: 16 Temp: 98.8 ??F (37.1 ??C) TempSrc: Oral SpO2: 98% Weight: 60.7 kg (133 lb 12.8 oz) Height: 5' 4.17 (1.63 m) Body mass index is 22.84 kg/m??. Physical Exam Constitutional General appearance: No acute distress, well appearing and well nourished. Head and Face Head and face: Normal. Eyes Conjunctiva and lids: No swelling, erythema or discharge. Ears, Nose, Mouth, and Throat External inspection of ears and nose: Normal. Neck Neck: Supple, symmetric, trachea midline, no masses. Pulmonary Respiratory effort: No increased work of breathing or signs of respiratory distress. Auscultation of lungs: Clear to auscultation. Cardiovascular Auscultation of heart: Normal rate and rhythm, normal S1 and S2, no murmurs. Carotid pulses: 2+ bilaterally. Examination of extremities for edema and/or varicosities: Normal. Abdomen Abdomen: Non-tender, no masses. Liver and spleen: No hepatomegaly or splenomegaly. Lymphatic Palpation of lymph nodes in neck: No lymphadenopathy. Skin Skin and subcutaneous tissue: Normal without rashes or lesions. Neurologic Cranial nerves: Cranial nerves II-XII intact. Psychiatric Judgment and insight: Normal. Mood and affect: Normal. Assessment/PLAN 1. Mild intermittent asthma without complication 2. Allergic rhinitis, unspecified seasonality, unspecified trigger Discussion Summary Asthma well controlled. Allergic rhinitis. She can use SEGMENT PRODUCER as her primary care as well, would need to be seen at least yearly if she needs refills; otherwise, RTO PRN. Follow up FU PRN MINNIE MCNEIL MD 03/02/2019 9:19 AM documented in this encounter Plan of Treatment Not on file documented as of this encounter Visit Diagnoses Diagnosis Mild intermittent asthma without complication (HHS/HCC)- Primary Unspecified asthma Allergic rhinitis, unspecified seasonality, unspecified trigger documented in this encounter Care Teams Interior Block Wirer Relationship Specialty Start Date End Date Minnie Mcneil MD PCP - General INTERNAL MEDICINE 03/02/19 06/03/23 documented as of this encounter
--- OUTSIDE RECORDS SUMMARY | 2024-07-12 15:40 | XMS_ITS | Encounter Summary ---
Author Organization [facility] Address [address] [place] [address]. [place] [address] [place] [address] Care Team Providers Care Hot Dipper Name Role Phone Minnie Mcneil MD Primary Care Provider Reason for Visit * Reason Comments Abdominal Pain Encounter Details Date Type Department Care Team (Late st Contact Info) Description 10/15/2022 4:09 PM CDT - 10/15/2022 5:47 PM CDT Emergency [facility] Emergency Services [facility] [place] [address] Carlota Shaw MD [address] [place] [id number] Abdominal Pain Discharge Disposition: Home or Self Care (Routine Discharge) Social History Tobacco Use Types Packs/Day Years [...] Sign Reading Time Taken Comments Blood Pressure 130/86 10/15/2022 4:32 PM CDT Pulse 79 10/15/2022 4:32 PM CDT Temperature 37.1 ??C (98.8 ??F) 10/15/2022 4:32 PM CD T Respiratory Rate 20 10/15/2022 4:32 PM CDT Oxygen Saturation 99% 10/15/2022 4:32 PM CDT Inhaled Oxygen Concentration - - Weight 63.5 kg (140 lb) 10/15/2022 4:38 PM CDT Height 162.6 cm (5' 4 ) 10/15/2022 4:32 PM CDT Body Mass Index 24.03 10/15/2022 4:32 PM CDT documented in this encounter Discharge Instructions * Attachments The following attachments cannot be sent through Care Everywhere. * Severe Abdominal Pain (Sami) documented in this encounter Medications at Time of Discharge cetirizine-pseud oephedrine ER 5mg-120mg 12 hr tablet Take 1 tablet by mouth every 12 (twelve) hours. 0 07/27/2018 PROAIR HFA 108 (90 Base) MCG/ACT inhaler Inhale 2 puffs into the lungs every 6 (six) hours as needed. FOR WHEEZING 4 12/30/2018 SYMBICORT 160-4.5 MCG/ACT inhaler 2 puffs every other day. qod 5 02/25/2019 JUNEL FE 07/27 1-20 MG-MCG tablet Take 1 tablet by mouth daily. 11 02/25/2019 01/23/2024 documented as of this encounter ED Notes * Zhanna Stewart RN - 10/15/2022 5:44 PM CDT Discharge instructions and follow up care reviewed with patient. Patient verbalized understanding and was ambulatory to ED exit with steady gait and no apparent distress. * Carlota Shaw MD - 10/15/2022 5:31 PM CDT Emergency Department Note Chief Complaint Chief Complaint Patient presents with ??? Abdominal Pain History of Present Illness 27-year-old female with no significant past medical history presents now to the emergency department with sharp epigastric abdominal pain which began approximately half an hour prior to arrival. She became concerned by this and came to the ED. She states the pain is somewhat improved now here in the ED. She denies any diarrhea or constipation. She denies any nausea or vomiting. She denies any fevers or chills. She denies any dysuria urgency or frequency. Medical History ALLERGIES: No Known Allergies MEDICATIONS: Prior to Admission medications Medication Sig Start Date End Date Taking? Authorizing Provider cetirizine-pseudoephedrine ER 5mg-120mg 12 hr tablet Take 1 tablet by mouth every 12 (twelve) hours. 07/27/18 [facility] 07/27 1-20 MG-MCG tablet Take 1 tablet by mouth daily. 02/25/19 [facility] PROAIR HFA 108 (90 Base) MCG/ACT inhaler Inhale 2 puffs into the lungs every 6 (six) hours as needed. FOR WHEEZING 12/30/18 [facility] SYMBICORT 160-4.5 MCG/ACT inhaler 2 puffs 2 (two) times daily. 02/25/19 [facility] Abstract PAST MEDICAL HISTORY: Past Medical History: Diagnosis Date ??? Appendicitis PAST SURGICAL HISTORY: Past Surgical History: Procedure Laterality Date ??? APPENDECTOMY FAMILY HISTORY: Family History Problem Relation Name Age of Onset ??? Hypertension Mother ??? Hypertension Father SOCIAL HISTORY: Social History Tobacco Use ??? Smoking status: Never ??? Smokeless tobacco: Never Substance Use Topics ??? Alcohol use: No ??? Drug use: No Review of Systems Review of systems included in HPI, otherwise 10 systems are reviewed and negative. Physical Exam Filed Vitals: 10/15/22 1632 10/15/22 1638 BP: 130/86 Pulse: 79 Resp: 20 Temp: 98.8 ??F (37.1 ??C) TempSrc: Oral SpO2: 99% Weight: 63.5 kg (140 lb) Height: 5' 4 (1.626 m) Pulse oximetry on room air is 99% which is normal. Physical Exam General-patient sitting up in the bed she appears comfortable HEENT-pupils equal reactive, sclera anicteric, oral mucosa pink and moist Neck-supple, no meningismus Chest-clear to auscultation, no rales rhonchi or wheezes Cardiovascular-regular rate and rhythm, no murmurs rubs or gallops Abdomen-soft, nontender, nondistended, normal bowel sounds -deferred Extremities-capillary refills less than 2 seconds, full range of motion without pain Skin-warm, no pallor Neuro-5 out of 5 strength bilateral upper and lower extremities, no facial droop, clear speech Psychiatric-patient appears calm, no signs of anxiety or distress Diagnostic Studies / Procedures LABORATORY STUDIES: Results for orders placed or performed during the hospital encounter of 10/15/22 CBC W/DIFF AUTOMATED Result Value Ref Range WBC 7.74 4.50 - 11.00 x10'3/uL RBC 4.92 4.00 - 5.20 x10'6/uL HGB 14.4 12.0 - 16.0 G/DL HCT 42.8 36.0 - 46.0 % MCV 87.0 80.0 - 100.0 FL MCH 29.3 26.0 - 34.0 PG MCHC 33.6 31.0 - 37.0 G/DL RDW 11.9 11.6 - 14.8 % PLT 235 140 - 415 x10'3/uL MPV 10.2 7.0 - 12.0 FL CBC COMMENT AUTOMATED RBC MORPHOLOGY AND PLATELET EVALUATION NORMAL NEUTROPHILS 58.4 40.0 - 74.0 % LYMPHOCYTES 31.5 14.0 - 46.0 % MONOCYTES 6.3 4.0 - 13.0 % EOSINOPHILS 2.6 0.0 - 7.0 % BASOPHILS 0.9 0.0 - 3.0 % IMMATURE GRANS 0.3 0.0 - 0.43 % NRBC 0.0 % ABS. NEUTROPHILS TOTAL 4.52 1.69 - 7.81 x10'3/uL ABS. LYMPHOCYTES 2.44 0.21 - 5.42 x10'3/uL ABS. MONOCYTES 0.49 0.04 - 1.37 x10'3/uL ABS. EOSINOPHILS 0.20 0.00 - 0.68 x10'3/uL ABS. BASOPHILS 0.07 0.00 - 0.08 x10'3/uL ABS. IMMATURE GRANULOCYTES 0.02 0.00 - 0.06 x10'3/uL ABS. NUCLEATED RBC'S 0.00 0.00 x10'3/uL COMPREHENSIVE METABOLIC PANEL Result Value Ref Range GLUCOSE 98 70 - 99 MG/DL BUN 19 (H) 7 - 18 MG/DL CREATININE S/P/B 0.77 0.50 - 1.20 MG/DL SODIUM 140 136 - 145 MMOL/L POTASSIUM 3.5 3.5 - 5.1 MMOL/L CHLORIDE S/P/B 102 100 - 108 MMOL/L CO2 27.4 21.0 - 32.0 MMOL/L CALCIUM 9.2 8.5 - 10.1 MG/DL BILIRUBIN TOTAL S/P/B 0.6 0.2 - 1.2 MG/DL TOTAL PROTEIN S/P/B 7.6 6.4 - 8.2 G/DL ALBUMIN S/P/B 3.9 3.4 - 5.0 G/DL AST 20 15 - 37 U/L ALT 25 14 - 55 U/L ALKALINE PHOSPHATASE S/P/B 62 50 - 136 U/L ANION GAP 10.6 5.0 - 15.0 MMOL/L BUN CREATININE RATIO 24.7 6 - 26 A/G RATIO 1.1 1.0 - 2.5 RATIO GFR ESTIMATE >90 >90 ML/MIN/1.73 M2 LIPASE Result Value Ref Range LIPASE 21 16 - 77 UNITS/L Qualitative HCG Result Value Ref Range PREG SCREEN-SERUM NEGATIVE NEGATIVE IMAGING STUDIES No orders to display ED Course / Medical Decision Making MDM Patient presents with epigastric abdominal pain. I was concerned she may have pancreatitis or hepatitis. Labs however are unremarkable. test is negative as well. Patient feeling better after receiving IV Toradol here. I am uncertain of the etiology of her pain, she will keep a journal of any further episodes and follow with primary physician. She will return if she is having worsening or any other concerns. She continues to have benign abdominal exam at this time. Medications ketorolac (TORADOL) injection 15 mg (15 mg Intravenous Given 10/15/22 1651) Clinical Impression Abdominal pain (Primary) Current Discharge Medication List Disposition: Discharge Follow-[place]: [place] [id number] [place] [address] In 2 days CARLOTA SHAW MD 10/15/2022 5:33 PM Carlota Shaw MD 10/15/22 6323 * Zhanna Stewart RN - 10/15/2022 5:15 PM CDT Called lab at this time to obtain an estimation on when lab results will be in. States 5 minutes * Zhanna Stewart RN - 10/15/2022 4:28 PM CDT Patient ambulatory to ER with c/o mid abd pain. Stated she was sitting at her desk and felt a sharpshooting pain in her abdomen and has never experienced this before. documented in this encounter Plan of Treatment Not on file documented as of this encounter Procedures Procedure Name Priority Date/Time Associated Diagnosis Comments COMPREHENSIVE METABOLIC PANEL STAT 10/15/2022 4:29 PM CDT CHORIONIC GONADOTROPIN HCG QL STAT 10/15/2022 4:29 PM CDT CBC W/DIFF AUTOMATED STAT 10/15/2022 4:29 PM CDT LIPASE STAT 10/15/2022 4:29 PM CDT documented in this encounter Results * Qualitative HCG (10/15/2022 4:29 PM CDT) Pathologist [facility] PREG SCREEN-SERUM NEGATIVE NEGATIVE 10/15/2022 5:17 PM CDT [facility] 10/15/2022 4:29 PM CDT Carlota Shaw MD LABORATORY Final Result [facility] [address] [place] [address], * LIPASE (10/15/2022 4:29 PM CDT) Pathologist [facility] LIPASE 21 16 - 77 UNITS/L 10/15/2022 5:22 PM CDT [facility] 10/15/2022 4:29 PM CDT Carlota Shaw MD LABORATORY Final Result [id number] [place] [address], [place] * (ABNORMAL) COMPREHENSIVE METABOLIC PANEL (10/15/2022 4:29 PM CDT) [facility] GLUCOSE 98 70 - 99 MG/DL 10/15/2022 5:22 PM CDT [facility] BUN 19(H) 7 - 18 MG/DL 10/15/2022 5:22 PM CDT [facility] CREATININE S/P/B 0.77 0.50 - 1.20 MG/DL 10/15/2022 5:22 PM CDT [facility] SODIUM S/P/B 140 136 - 145 MMOL/L 10/15/2022 5:22 PM CDT [facility] POTASSIUM S/P/B 3.5 3.5 - 5.1 MMOL/L 10/15/2022 5:22 PM CDT [facility] CHLORIDE S/P/B 102 100 - 108 MMOL/L 10/15/2022 5:22 PM CDT [facility] CO2 27.4 21.0 - 32.0 MMOL/L 10/15/2022 5:22 PM CDT [facility] CALCIUM S/P/B 9.2 8.5 - 10.1 MG/DL 10/15/2022 5:22 PM CDT [facility] BILIRUBIN TOTAL S/P/B 0.6 0.2 - 1.2 MG/DL 10/15/2022 5:22 PM CDT [facility] Comment: THIS ASSAY IS NOT RECOMMENDED FOR PATIENTS UNDERGOING TREATMENT WITH ELTROMBOPAG DUE TO THE POTENTIAL FOR FALSELY ELEVATED RESULTS. TOTAL PROTEIN S/P/B 7.6 6.4 - 8.2 G/DL 10/15/2022 5:22 PM CDT [facility] ALBUMIN S/P/B 3.9 3.4 - 5.0 G/DL 10/15/2022 5:22 PM CDT [facility] AST 20 15 - 37 U/L 10/15/2022 5:22 PM CDT [facility] ALT 25 14 - 55 U/L 10/15/2022 5:22 PM CDT [facility] ALKALINE PHOSPHATASE S/P/B 62 50 - 136 U/L 10/15/2022 5:22 PM CDT [facility] ANION GAP 10.6 5.0 - 15.0 MMOL/L 10/15/2022 5:22 PM CDT [facility] BUN CREATININE RATIO 24.7 6 - 26 10/15/2022 5:22 PM CDT [facility] A/G RATIO 1.1 1.0 - 2.5 RATIO 10/15/2022 5:22 PM CDT [facility] GFR ESTIMATE >90 >90 ML/MIN/1.7 3 M2 10/15/2022 5:22 PM CDT [facility] Comment: NOTE: eGFR is not calculated for patients <18 years of age. This is an estimated GFR calculation using the new CKD EPI creatinine equation without race and so does not require a correction factor for race. This estimated GFR should not be used for calculating drug doses. 10/15/2022 4:29 PM CDT us Carlota Shaw MD LABORATORY Final Result [address] [place] [address], * CBC W/DIFF AUTOMATED (10/15/2022 4:29 PM CDT) WBC 7.74 4.50 - 11.00 x10'3/uL 10/15/2022 4:59 PM CDT [facility] RBC 4.92 4.00 - 5.20 x10'6/uL 10/15/2022 4:59 PM CDT [facility] HGB 14.4 12.0 - 16.0 G/DL 10/15/2022 4:59 PM CDT [facility] HCT 42.8 36.0 - 46.0 % 10/15/2022 4:59 PM CDT [facility] MCV 87.0 80.0 - 100.0 FL 10/15/2022 4:59 PM CDT [facility] MCH 29.3 26.0 - 34.0 PG 10/15/2022 4:59 PM CDT [facility] MCHC 33.6 31.0 - 37.0 G/DL 10/15/2022 4:59 PM CDT [facility] RDW 11.9 11.6 - 14.8 % 10/15/2022 4:59 PM CDT [facility] PLT 235 140 - 415 x10'3/uL 10/15/2022 4:59 PM CDT [facility] MPV 10.2 7.0 - 12.0 FL 10/15/2022 4:59 PM CDT [facility] CBC COMMENT AUTOMATED RBC MORPHOLOGY AND PLATELET EVALUATION NORMAL 10/15/2022 4:59 PM CDT [facility] NEUTROPHILS % 58.4 40.0 - 74.0 % 10/15/2022 4:59 PM CDT [facility] LYMPHOCYTES % 31.5 14.0 - 46.0 % 10/15/2022 4:59 PM CDT [facility] MONOCYTES % 6.3 4.0 - 13.0 % 10/15/2022 4:59 PM CDT [facility] EOSINOPHILS 2.6 0.0 - 7.0 % 10/15/2022 4:59 PM CDT [facility] BASOPHILS 0.9 0.0 - 3.0 % 10/15/2022 4:59 PM CDT [facility] IMMATURE GRANS % 0.3 0.0 - 0.43 % 10/15/2022 4:59 PM CDT [facility] NRBC 0.0 % 10/15/2022 4:59 PM CDT [facility] ABS. NEUTROPHILS TOTAL 4.52 1.69 - 7.81 x10'3/uL 10/15/2022 4:59 PM CDT [facility] ABS. LYMPHOCYTES 2.44 0.21 - 5.42 x10'3/uL 10/15/2022 4:59 PM CDT [facility] ABS. MONOCYTES 0.49 0.04 - 1.37 x10'3/uL 10/15/2022 4:59 PM CDT [facility] ABS. EOSINOPHILS 0.20 0.00 - 0.68 x10'3/uL 10/15/2022 4:59 PM CDT [facility] ABS. BASOPHILS 0.07 0.00 - 0.08 x10'3/uL 10/15/2022 4:59 PM CDT [facility] ABS. IMMATURE GRANULOCYTES 0.02 0.00 - 0.06 x10'3/uL 10/15/2022 4:59 PM CDT [facility] ABS. NUCLEATED RBC'S 0.00 0.00 x10'3/uL 10/15/2022 4:59 PM CDT [facility] 10/15/2022 4:29 PM CDT us Carlota Shaw MD LABORATORY Final Result [address] [place] [address], documented in this encounter Visit Diagnoses Diagnosis Abdominal pain- Primary Abdominal pain, unspecified site documented in this encounter Administered Medications Inactive Administered Medications - up to 3 most recent administrations Medication Order MAR Action Action Date Dose Rate Site ketorolac (TORADOL) injection 15 mg 15 mg, Intravenous, Once, 1 dose, On Sat10/15/22 at 1630, For IV administration, give over 15 seconds. Given 10/15/2022 4:51 PM CDT 15 mg documented in this encounter Active and Recently Administered Medications Times are shown in CDT. Scheduled Medication Order 10/13/2022 10/14/2022 10/15/2022 ketorolac (TORADOL) injection 15 mg (COMPLETED) 15 mg, Intravenous, Once, 1 dose, On Sat10/15/22 at 1630, For IV administration, give over 15 seconds. 1651 (Given - Provid er: Zhanna Stewart RN) documented in this encounter Care Teams Hot Dipper Relationship Specialty Start Date End Date Minnie Mcneil MD PCP - General INTERNAL MEDICINE 03/02/19 06/03/23 documented as of this encounter
--- OUTSIDE RECORDS SUMMARY | 2024-07-12 15:40 | XMS_ITS | Encounter Summary ---
Author Organization [facility] Address [address] [place] [address]. [place], [place] [id number] [place] [address] Care Team Providers Care Barrel Straightener Name Role Phone Minnie Mcneil MD Primary Care Provider Encounter Details Date Type Department Care Team (Latest Contact Info) Description 05/02/2020 Scan HEALTH INFO [facility] Scanned, Documents Social [...] on filedocumented in this encounter Care Teams Barrel Straightener Relationship Specialty Start Date End Date Minnie Mcneil MD PCP - General INTERNAL MEDICINE 03/02/19 06/03/23 documented as of this encounter
--- OUTSIDE RECORDS SUMMARY | 2024-07-12 15:40 | XMS_ITS | Encounter Summary ---
Author Organization [facility] Address [address] [place] [address]. [place] [address] [place] [address] Care Team Providers Care Rag Cutting Machine Operator Name Role Phone Minnie Mcneil MD Primary Care Provider Encounter Details Date Type Department Care Team (Late st Contact Info) Description 04/11/2017 Abstract [facility] Emergency Services [address] [place] [address] Wing Dorman MD [facility] [place] [address] Social History Tobacco Use Types Packs/Day Years [...] on filedocumented in this encounter Care Teams Rag Cutting Machine Operator Relationship Specialty Start Date End Date Minnie Mcneil MD PCP - General INTERNAL MEDICINE 03/02/19 06/03/23 documented as of this encounter
--- OUTSIDE RECORDS SUMMARY | 2024-07-12 15:42 | XMS_ITS | Clinical Summary ---
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 FORM DESIGNER Gender Identity Not on file Sexual Orientation Not on file Plan of Treatment Health Maintenance Due Date Last Done Comments Hepatitis C Virus (HCV) Screening 1996 TdaP Immunization 1996 Hepatitis B Immunization (1 of 3 - 19+ 3-dose series) 2015 Pap Smear 2017 SARS-COV-2 Immunization (2022-24 season) 2023 Influenza Immunization (Seas on Ended) 2024 04/14/2020 Meningococcal Immunization (ACWY) Aged Out No longer eligible based on patient's age to complete this topic Pneumococcal Immunization Combined Aged Out No longer eligible based on patient's age to complete this topic Rotavirus Immunization Aged Out No lo nger eligible based on patient's age to complete this topic
--- OUTSIDE RECORDS SUMMARY | 2024-07-12 15:42 | XMS_ITS | Encounter Summary ---
Author Organization [facility] Address [address] [place] [address] Care Team Providers Care Pharmacognosist Name Role Phone Unavailable Primary Care Provider Unavailabl e Encounter Details Date Type Department Care Team (Late st Contact Info) Description 06/23/2020 1:00 PM COMBAT CONTROL MANAGER Rapid Evaluation [facility] Testing [address] [id number] Social History Tobacco Use Types Packs/Day Years Used Date Smoking Tobacco: Never Assessed Comments Unknown Sex and Gender Information Value Date Recorded Sex Assigned at Not on file Legal Sex Female 12:05 PM COMBAT CONTROL MANAGER Gender Identity Not on file Sexual Orientation Not on file documented as of this encounter Plan of Treatment Not on file documented as of this encounter Visit Diagnoses Not on filedocumented in this encounter
--- OUTSIDE RECORDS SUMMARY | 2024-07-12 15:42 | XMS_ITS | Encounter Summary ---
Author Organization [facility] Address [address] [place] [address] Care Team Providers Care Mri Specialist Name Role Phone Unavailable Primary Care Provider Unavailabl e Encounter Details Date Type Department Care Team (Late st Contact Info) Description 06/23/2020 Lab Requisition [facility] Testing [facility] [address] [place] [address] [place] [address] [place] [address] Social History Tobacco Use Types Packs/Day Years Used Date Smoking Tobacco: Never Assessed Comments Unknown Sex and Gender Information Value Date Recorded Sex Assigned at Not on file Legal Sex Female 12:05 PM PROCESSING REP Gender Identity Not on file Sexual Orientation Not on file documented as of this encounter Plan of Treatment Not on file documented as of this encounter Procedures Procedure Name Priority Date/Time Associated Diagnosis Comments SARS-COV-2 PCR [facility] ONLY Routine 06/23/2020 12:32 PM PROCESSING REP documented in this encounter Visit Diagnoses Not on filedocumented in this encounter
--- OUTSIDE RECORDS SUMMARY | 2024-07-12 16:04 | XMS_ITS | Encounter Summary ---
Author Organization [facility] Address [address] [place] [address]. [place] [address] [place] [address] Care Team Providers Care Addiction Treatment Counselor Name Role Phone Minnie Mcneil MD Primary Care Provider Encounter Details Date Type Department Care Team (Late st Contact Info) Description 04/11/2017 Abstract [facility] Emergency Services [address] [place] [address] Wing Dorman MD [facility] [place] [address] Social History Tobacco Use Types Packs/Day Years [...] on filedocumented in this encounter Care Teams Addiction Treatment Counselor Relationship Specialty Start Date End Date Minnie Mcneil MD PCP - General INTERNAL MEDICINE 03/02/19 06/03/23 documented as of this encounter
--- OUTSIDE RECORDS SUMMARY | 2024-07-12 16:04 | XMS_ITS | Encounter Summary ---
Author Organization [facility] Address [address] [place] [address]. [place], [place] [address] [place] [address] Care Team Providers Care Administrative Library Assistant Name Role Phone Minnie Mcneil MD Primary [...] on filedocumented in this encounter Care Teams Administrative Library Assistant Relationship Specialty Start Date End Date Minnie Mcneil MD PCP - General INTERNAL MEDICINE 03/02/19 06/03/23 documented as of this encounter
--- OUTSIDE RECORDS SUMMARY | 2024-07-12 16:04 | XMS_ITS | Encounter Summary ---
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 NURSERY HAND History Menarche: 12 yo Menses: regular monthly [...] history of drug use. Engaged. 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 Family History Problem Relation Age of Onset [...] changes, or exudate BUS: Normal Bartholin's and [place]on [place]'s glands Urinary: Urethral meatus normal without masses. [...]
--- OUTSIDE RECORDS SUMMARY | 2024-07-12 16:04 | XMS_ITS | Encounter Summary ---
Author Organization [facility] Address [address] [facility] [place] [address] Care Team Providers Care Silk Hanger Name Role Phone Minnie Mcneil MD Primary Care Provider [phone] Reason for Visit * Reason Comments Refill Request Encounter Details Date Type Department Care Team (Late st Contact Info) Description 08/12/2020 Refill [facility] Medical [facility] - IMPLEMENTATION SERVICES ANALYST [address] [place] [address] Fior Saravia MD [address] [place] [address] Refill Request Social History Tobacco [...] COVID-19? No / Unsure 08/12/2020 3:22 PM DIRECTOR OF RELIGIOUS LIFE documented as of this encounter Plan of Treatment Not on file documented as of this encounter Visit Diagnoses Not on filedocumented in this encounter Care Teams Silk Hanger Relationship Specialty Start Date End Date Minnie Mcneil MD PCP - General Internal Medicine 05/07/19 documented as of this encounter
--- OUTSIDE RECORDS SUMMARY | 2024-07-12 16:04 | XMS_ITS | Encounter Summary ---
Author Organization [facility] Address [address] [place] [address]. [place] [address] [place] [address] Care Team Providers Care Podiatric Foot And Ankle Specialist Name Role Phone Minnie Mcneil MD Primary Care Provider [phone] Reason for Visit * Reason Comments Pap Smear (SCAN) Encounter Details Date Type Department Care Team ([facility] Contact Info) Description 08/15/2020 Scan HEALTH INFO [...] 08/15/2020 us Documents Scanned SCANNING Final Result [facility] ON[facility] documented in this encounter Visit Diagnoses Not on filedocumented in this encounter Care Teams Podiatric Foot And Ankle Specialist Relationship Specialty Start Date End Date Minnie Mcneil MD PCP - General INTERNAL MEDICINE 03/02/19 06/03/23 documented as of this encounter
--- OUTSIDE RECORDS SUMMARY | 2024-07-12 16:04 | XMS_ITS | Encounter Summary ---
Author Organization [facility] Address [facility] [place] [address] Care Team Providers Care Touch Up Painter Name Role Phone Unavailable Primary Care Provider [...] 04/12/2017 12:46 AM CDT Emergency ER at [address] [address] Uncomplicated asthma, unspecified asthma severity, unspecified whether [...] documented in this encounter ED Notes * Sowyma Daniel RN - 04/12/2017 12:44 AM CDT [...]
--- OUTSIDE RECORDS SUMMARY | 2024-07-12 16:04 | XMS_ITS | Encounter Summary ---
Author Organization [facility] Address [address] [place] [address] Care Team Providers Care Bingo Floater Name Role Phone Minnie Mcneil MD Primary Care Provider [phone] Reason for Visit * Reason Comments Refill Request Encounter Details Date Type Department Care Team (Late st Contact Info) Description 10/16/2021 Refill [facility] - JOB LITHOGRAPHER [address] [place] [address] Fior Saravia MD [address] [place] [address] Refill Request Social History Tobacco [...] Requested Prescriptions Pending Prescriptions Disp Refills ??? JAOVN 0.25-35 MG-MCG tablet [Pharmacy Med Name: JAVON 0.25-0.035 MG TABLET] 84 tablet 3 Sig: TAKE 1 TABLET BY MOUTH EVERY DAY documented in this encounter Plan of Treatment Not on file documented as of this encounter Visit Diagnoses Not on filedocumented in this encounter Care Teams Bingo Floater Relationship Specialty Start Date End Date Minnie Mcneil MD PCP - General Internal Medicine 05/07/19 documented as of this encounter
--- OUTSIDE RECORDS SUMMARY | 2024-07-12 16:04 | XMS_ITS | Encounter Summary ---
Author Organization [facility] Address [facility] [place] [address] Care Team Providers Care Nursery Nurse Name Role Phone Unavailable Primary Care Provider Unavailabl e Reason for Visit * Reason Comments Establish Care Well Women Exam Encounter Details Date Type Department Care Team (Late st Contact Info) Description 08/07/2017 2:00 PM ADMINISTRATIVE RECEPTIONIST Office Visit [facility] Medical [facility] - MEDICAL LABORATORY TECHNICAL OFFICER [address] [place] [address] Fior Saravia MD [address] [place] [address] Well woman exam with routine [...] Comments Blood Pressure 116/88 08/07/2017 2:00 PM ADMINISTRATIVE RECEPTIONIST Pulse - - Temperature - - Respiratory Rate - - Oxygen Saturation - - Inhaled Oxygen Concentration - - Weight 64.8 kg (142 lb 12.8 oz) 08/07/2017 2:00 PM ADMINISTRATIVE RECEPTIONIST Height 160 cm (5' 3 ) 08/07/2017 2:00 PM ADMINISTRATIVE RECEPTIONIST Body Mass Index 25.3 08/07/2017 2:00 PM ADMINISTRATIVE RECEPTIONIST documented in this encounter Progress Notes * Fior Saravia MD - 08/07/2017 1:57 PM CST Well Woman Exam (New) HISTORY Tessie is a 22 y.o. G0 LMP 07/25/17 who presents for to establish care and for Well Woman Exam. Shedenies breast concerns - doing SBE as instructed by her personal computer specialist. She denies abnormal vaginal discharge, vulvar itching/irritation, or pelvic pain. Patient does not have other gynecological issues or concerns. Risk Factors: The pt does exercise regularly and does eat a balanced diet. TEARER PRESS CLIPPING History Menarche: 12 yo Menses: regular monthly [...] Denies history of drug use. 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 Family History Problem Relation Age of Onset [...] changes, or exudate BUS: Normal Bartholin's and [place]'s glands Urinary: Urethral meatus normal without masses. [...] IG LB See orders, medications, patient instructions. NISTRATIVE RECEPTIONIST documented in this encounter Plan of Treatment Not on file documented as of this encounter Procedures Procedure Name Priority Date/Time Associated Diagnosis Comments PAP IG LB Routine 08/07/2017 2:14 PM ADMINISTRATIVE RECEPTIONIST Well woman exam with routine gynecological exam documented in this encounter Results * PAP IG LB (08/07/2017 2:14 PM ADMINISTRATIVE RECEPTIONIST) Diagnosis [facility] ACCOUNT BILL Comment:NEGATIVE FOR INTRAEP [...] UTERINE CERVIX / Unknown 08/07/2017 2:14 PM ADMINISTRATIVE RECEPTIONIST 08/08/2017 Narrative [facility] ACCOUNT BILL - 08/09/2017 3:15 PM ADMINISTRATIVE RECEPTIONIST Source.............Cervix LMP / Prev Treat...VIO=[id number];None No. of containers..01 ThinPrep Vial Resulting Agency Comment [facility] [address] [place] [address] ??[place] T[place] [id number] Fior Saravia MD LAB - PATHOLOGY/CYTO LOGY ORDERABLES [facility] ACCOUNT BILL [address] [place] [address] documented in this encounter Visit Diagnoses Diagnosis Well woman exam with routine gynecological exam- Primary Routine gynecological examination documented in this encounter
--- OUTSIDE RECORDS SUMMARY | 2024-07-12 16:04 | XMS_ITS | Referral Summary ---
Author Organization [facility] Address [address] [facility] [place] [address] Care Team Providers Care Pediatric Dental Hygienist Name Role Phone Minnie Mcneil MD Primary Care Provider [phone] Source Comments [facility],non-owned Affiliates and Associated Physician Practices is amultiple site organization consisting of ambulatory clinics and hospital sitesin [place], [place], [place] and [place]. This disclosure is being madepursuant to the Care Everywhere program and may not contain all information available regarding this patient. Last updated 18.[facility] Allergies No known active allergies Medications * [...] 36.1 ??C (97 ??F) 08/15/2020 3:29 PM TRAUMA DOCTOR Respiratory Rate 16 04/12/2017 12:06 AM CDT Oxygen Saturation 99% 08/15/2020 3:29 PM TRAUMA DOCTOR Inhaled Oxygen Concentration - - Weight 71 kg (156 lb 9.6 oz) 03/05/2022 3:04 PM CDT Height 157.5 cm (5' 2 ) 03/05/2022 3:04 PM CDT Body Mass Index 28.64 03/05/2022 3:04 PM CDT Plan of Treatment Not on file Procedures Procedure Name Priority Date/Time Associated Diagnosis Comments PAP IG LB 08/15/2020 4:08 AM TRAUMA DOCTOR from Last 3 Months or Most Recently Relevant to Health Maintenance Results * PAP IG LB (08/15/2020 4:08 AM TRAUMA DOCTOR) Diagnosis [facility] INSURANCE BILL Comment:NEGATIVE FOR INTRAEP ITHELIAL LESION OR MALIGNANCY. Specimen Adequacy [facility] INSURANCE BILL Comment: Satisfactory for evaluation. ??Endocervical and/or squamous metaplastic cells (endocervical component) are present. Clinician Provided ICD10 [facility] INSURANCE BILL Comment:Z01.419 Performed by [facility] INSURANCE BILL Comment:Elizaar Li totechnologist (ASCP) Comment . [facility] INSURANCE [...] occur. ? . IGLBP CPT Code Automation [facility] INSURANCE BILL Comment: This liquid based ThinPrep(R) pap test was screened with the use of an image guided system. 08/15/2020 4:08 AM TRAUMA DOCTOR 08/15/2020 Narrative [facility] INSURANCE BILL - 08/17/2020 5:08 PM TRAUMA DOCTOR Source.............Cervix No. of containers..01 ThinPrep Vial Resulting Agency Comment Lab Testing performed at: [address] ??[place] [id number] Fior Saravia MD LAB - PATHOLOGY/CYTO LOGY ORDERABLES [facility] INSURANCE BILL [address] [place] [address] from Last 3 Months or Most Recently Relevant to Health Maintenance Care Teams Pediatric Dental Hygienist Relationship Specialty Start Date End Date Minnie Mcneil MD PCP - General Internal Medicine 05/07/19
--- OUTSIDE RECORDS SUMMARY | 2024-07-12 16:04 | XMS_ITS | Encounter Summary ---
Author Organization [facility] Address [address] [place] [address]. [place], [place] [address] [place] [address] Care Team Providers Care Dust Control Engineer Name Role Phone Minnie Mcneil MD [...] on filedocumented in this encounter Care Teams Dust Control Engineer Relationship Specialty Start Date End Date Minnie Mcneil MD PCP - General INTERNAL MEDICINE 03/02/19 06/03/23 documented as of this encounter
--- OUTSIDE RECORDS SUMMARY | 2024-07-12 16:04 | XMS_ITS | Clinical Summary ---
Author Organization [facility] Address [address] [facility] [place] [address] Care Team Providers Care Linen Room Attendant Name Role Phone Minnie Mcneil MD Primary Care Provider [phone] Source Comments [facility],non-owned Affiliates and Associated Physician Practices is amultiple site organization consisting of ambulatory clinics and hospital sitesin [place], [place], [place] and [place]. This disclosure is being madepursuant to the Care Everywhere program and may not contain all information available regarding this patient. Last updated 18.[facility] Allergies No known active allergies Medications * [...] 36.1 ??C (97 ??F) 08/15/2020 3:29 PM JEWELRY MANAGER Respiratory Rate 16 04/12/2017 12:06 AM CDT Oxygen Saturation 99% 08/15/2020 3:29 PM JEWELRY MANAGER Inhaled Oxygen Concentration - - Weight 71 [...] Comments PAP IG LB 08/15/2020 4:08 AM JEWELRY MANAGER from Last 3 Months or Most Recently Relevant to Health Maintenance Results * PAP IG LB (08/15/2020 4:08 AM JEWELRY MANAGER) Diagnosis [facility] INSURANCE BILL Comment:NEGATIVE FOR INTRAEP ITHELIAL LESION OR MALIGNANCY. Specimen Adequacy [facility] INSURANCE BILL Comment: Satisfactory for evaluation. ??Endocervical and/or squamous metaplastic cells (endocervical component) are present. Clinician Provided ICD10 [facility] INSURANCE BILL Comment:Z01.419 Performed by [facility] INSURANCE BILL Comment:Eliazar Li totechnologist (ASCP) Comment [...] occur. ? . IGLBP CPT Code Automation [facility] INSURANCE BILL Comment: This liquid based ThinPrep(R) pap test was screened with the use of an image guided system. 08/15/2020 4:08 AM JEWELRY MANAGER 08/15/2020 Narrative [facility] INSURANCE BILL - 08/17/2020 5:08 PM JEWELRY MANAGER Source.............Cervix No. of containers..01 ThinPrep Vial Resulting Agency Comment Lab Testing performed at: [facility] ??[place] [id number] Fior Saravia MD LAB - PATHOLOGY/CYTO LOGY ORDERABLES [facility] INSURANCE BILL [address] [place] [address] from Last 3 Months or Most Recently Relevant to Health Maintenance Care Teams Linen Room Attendant Relationship Specialty Start Date End Date Minnie Mcneil MD PCP - General Internal Medicine 05/07/19
--- OUTSIDE RECORDS SUMMARY | 2024-07-12 16:04 | XMS_ITS | Encounter Summary ---
Author Organization [facility] Address [address] [place] [address]. [place] [address] [place] [address] Care Team Providers Care Security Compliance Specialist Name Role Phone Minnie Mcneil MD Primary Care Provider Encounter Details Date Type Department Care Team (Late st Contact Info) Description 05/15/2016 Abstract [facility] Emergency Services [address] [place] [address] Romeo Steele MD [address] [place] [address] Social History Tobacco Use Types Packs/Day Years [...] on filedocumented in this encounter Care Teams Security Compliance Specialist Relationship Specialty Start Date End Date Minnie Mcneil MD PCP - General INTERNAL MEDICINE 03/02/19 06/03/23 documented as of this encounter
--- OUTSIDE RECORDS SUMMARY | 2024-07-12 16:04 | XMS_ITS | Encounter Summary ---
Author Organization [facility] Address [address] [facility] [place] [address] Care Team Providers Care Abrasive Worker Name Role Phone Unavailable Primary Care Provider Unavailabl e Reason for Visit * Reason Onset Date Comments Scheduling 04/23/2019 Encounter Details Date Type Department Care Team (Late st Contact Info) Description 04/23/2019 Telephone [facility] - SUPERVISOR CD AREA [address] [place] [address] Fior Saravia MD [address] [place] [address] Scheduling Social History Tobacco Use [...]
--- OUTSIDE RECORDS SUMMARY | 2024-07-12 16:04 | XMS_ITS | Encounter Summary ---
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 No / Unsure 08/12/2020 3:22 PM ACADEMIC SUCCESS COORDINATOR documented as of this encounter Last Filed Vital Signs Vital Sign Reading Time Taken Comments Blood Pressure 141/92 08/15/2020 3:29 PM ACADEMIC SUCCESS COORDINATOR Pulse 78 08/15/2020 3:29 PM ACADEMIC SUCCESS COORDINATOR Temperature 36.1 ??C (97 ??F) 08/15/2020 3:29 PM ACADEMIC SUCCESS COORDINATOR Respiratory Rate - - Oxygen Saturation 99% 08/15/2020 3:29 PM ACADEMIC SUCCESS COORDINATOR Inhaled Oxygen Concentration - - Weight 71.3 kg (157 lb 3.2 oz) 08/15/2020 3:29 P M ACADEMIC SUCCESS COORDINATOR Height 157.5 cm (5' 2 ) 08/15/2020 3:29 PM ACADEMIC SUCCESS COORDINATOR Body Mass Index 28.75 08/15/2020 3:29 PM ACADEMIC SUCCESS COORDINATOR documented in this encounter Progress Notes * Fior Saravia MD - 08/15/2020 4:07 PM CST Well Woman Exam (Established) HISTORY Tessie is a 25 year old G0 LMP 07/08/20 who returns for WWE. No DIRECTOR OF PHYSIOTHERAPY SERVICES concerns. Happy w/OCP. No side effects or problems remembering. Wants to continue pill, declines alternative route of contraception.No breast concerns, does exam q1-2 mo. Denies domestic violence, depression or SI. DIRECTOR OF PHYSIOTHERAPY SERVICES History Menarche: 12 yo Menses: regular Sexual [...] use. 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 Currently living w/in-laws in [place] to pay down student loans. They did [...] changes, or exudate BUS: Normal Bartholin's and [place]'s glands Urinary: Urethral meatus normal without masses. [...] CANCER SCREENING See orders, medications, patient instructions. EMIC SUCCESS COORDINATOR documented in this encounter Plan of Treatment Scheduled Orders Name Type Priority Associated Diagnoses Orde r Schedule PAP IGP CERVICAL CANCER SCREENING Pathology Cytology Routine Well woman exam with routine gynecological exam Ordered: 08/15/2020 documented as of this encounter Procedures Procedure Name Priority Date/Time Associated Diagnosis Comments PAP IG LB 08/15/2020 4:08 AM ACADEMIC SUCCESS COORDINATOR documented in this encounter Results * PAP IG LB (08/15/2020 4:08 AM ACADEMIC SUCCESS COORDINATOR) Diagnosis [facility] INSURANCE BILL Comment:NEGATIVE FOR INTRAEP ITHELIAL LESION OR MALIGNANCY. Specimen Adequacy [facility] INSURANCE BILL Comment: Satisfactory for evaluation. ??Endocervical and/or squamous metaplastic cells (endocervical component) are present. Clinician Provided ICD10 [facility] INSURANCE BILL Comment:Z01.419 Performed by [facility] INSURANCE BILL Comment:Eliazar Li totechnologist (ASCP) Comment [...] an image guided system. 08/15/2020 4:08 AM ACADEMIC SUCCESS COORDINATOR 08/15/2020 Narrative [facility] INSURANCE BILL - 08/17/2020 5:08 PM ACADEMIC SUCCESS COORDINATOR Source.............Cervix No. of containers..01 ThinPrep Vial Resulting Agency Comment Lab Testing performed at: [address] ??[place] [id number] Fior Saravia MD LAB - PATHOLOGY/CYTO LOGY ORDERABLES Performing Organization Address City/State/[facility] Co de Phone Number [facility] [address] [place] [address] documented in this encounter Visit Diagnoses Diagnosis Well woman exam with routine gynecological exam- Primary Routine gynecological examination documented in this encounter Care Teams Lens Edger Relationship Specialty Start Date End Date Minnie Mcneil MD PCP - General Internal Medicine 05/07/19 documented as of this encounter
--- OUTSIDE RECORDS SUMMARY | 2024-07-12 16:04 | XMS_ITS | Encounter Summary ---
Author Organization [facility] Address [address] [place] [address]. [place] [address] [place] [address] Care Team Providers Care French Folding Machine Operator Name Role Phone Minnie Mcneil MD Primary Care Provider [phone] Reason for Visit * Reason Comments Abdominal Pain Encounter Details Date Type Department Care Team (Late st Contact Info) Description 10/15/2022 4:09 PM CDT - 10/15/2022 5:47 PM CDT Emergency [facility] Emergency Services [facility] [place] [address] Carlota Shaw MD [address] [place] [address] [id number] Abdominal Pain Discharge Disposition: Home or Self [...] through Care Everywhere. * Severe Abdominal Pain (Spanish) documented in this encounter Medications at Time [...] List Disposition: Discharge Follow[place] [address] [address] In 2 days CARLOTA SHAW MD 10/15/2022 5:33 PM Carlota Shaw MD 10/15/22 0303 * Zhanna Stewart RN - 10/15/2022 5:15 [...] Qualitative HCG (10/15/2022 4:29 PM CDT) Pathologist [facility] [place] PREG SCREEN-SERUM NEGATIVE NEGATIVE 10/15/2022 5:17 PM CDT [facility] 10/15/2022 4:29 PM CDT Carlota Shaw MD LABORATORY Final Result [facility] [address] [place] [address], * LIPASE (10/15/2022 4:29 PM CDT) Pathologist [facility] [place] LIPASE 21 16 - 77 UNITS/L 10/15/2022 5:22 PM CDT [facility] 10/15/2022 4:29 PM CDT Carlota Shaw MD LABORATORY Final Result [facility] [place] [address], [place] * (ABNORMAL) COMPREHENSIVE METABOLIC PANEL (10/15/2022 4:29 PM CDT) [facility] GLUCOSE 98 70 - 99 MG/DL 10/15/2022 5:22 PM CDT [facility] BUN 19(H) 7 - 18 MG/DL 10/15/2022 5:22 PM CDT [facility] CREATININE S/P/B 0.77 0.50 - 1.20 MG/DL 10/15/2022 5:22 PM CDT [facility] SODIUM S/P/B 140 136 - 145 MMOL/L 10/15/2022 5:22 PM CDT [facility] POTASSIUM S/P/B 3.5 3.5 - 5.1 MMOL/L 10/15/2022 5:22 PM CDT [facility] CHLORIDE S/P/B 102 100 - 108 MMOL/L 10/15/2022 5:22 PM CDT [facility] CO2 27.4 21.0 - 32.0 MMOL/L 10/15/2022 5:22 PM CDT [facility] CALCIUM S/P/B 9.2 8.5 - 10.1 MG/DL 10/15/2022 5:22 PM CDT [facility] BILIRUBIN TOTAL S/P/B 0.6 0.2 - 1.2 MG/DL 10/15/2022 5:22 PM CDT [facility] Comment: THIS ASSAY IS NOT RECOMMENDED FOR PATIENTS UNDERGOING TREATMENT WITH ELTROMBOPAG DUE TO THE POTENTIAL FOR FALSELY ELEVATED RESULTS. TOTAL PROTEIN S/P/B 7.6 6.4 - 8.2 G/DL 10/15/2022 5:22 PM CDT [facility] ALBUMIN S/P/B 3.9 3.4 - 5.0 G/DL 10/15/2022 5:22 PM CDT [facility] AST 20 15 - 37 U/L 10/15/2022 5:22 PM CDT [facility] ALT 25 14 - 55 U/L 10/15/2022 5:22 PM CDT [facility] ALKALINE PHOSPHATASE S/P/B 62 50 - 136 U/L 10/15/2022 5:22 PM CDT [facility] ANION GAP 10.6 5.0 - 15.0 MMOL/L 10/15/2022 5:22 PM CDT [facility] BUN CREATININE RATIO 24.7 6 - 26 10/15/2022 5:22 PM CDT [facility] A/G RATIO 1.1 1.0 - 2.5 RATIO 10/15/2022 5:22 PM CDT [facility] GFR ESTIMATE >90 >90 ML/MIN/1.7 3 M2 10/15/2022 5:22 PM CDT [facility] Comment: NOTE: eGFR is not calculated for patients <18 years of age. This is an estimated GFR calculation using the new CKD EPI creatinine equation without race and so does not require a correction factor for race. This estimated GFR should not be used for calculating drug doses. 10/15/2022 4:29 PM CDT us Carlota Shaw MD LABORATORY Final Result [address] [place] [address], * CBC W/DIFF AUTOMATED (10/15/2022 4:29 PM CDT) WBC 7.74 4.50 - 11.00 x10'3/uL 10/15/2022 4:59 PM CDT [facility] RBC 4.92 4.00 - 5.20 x10'6/uL 10/15/2022 4:59 PM CDT [facility] HGB 14.4 12.0 - 16.0 G/DL 10/15/2022 4:59 PM CDT [facility] HCT 42.8 36.0 - 46.0 % 10/15/2022 4:59 PM CDT [facility] MCV 87.0 80.0 - 100.0 FL 10/15/2022 4:59 PM CDT [facility] MCH 29.3 26.0 - 34.0 PG 10/15/2022 4:59 PM CDT [facility] MCHC 33.6 31.0 - 37.0 G/DL 10/15/2022 4:59 PM CDT [facility] RDW 11.9 11.6 - 14.8 % 10/15/2022 4:59 PM CDT [facility] PLT 235 140 - 415 x10'3/uL 10/15/2022 4:59 PM CDT [facility] MPV 10.2 7.0 - 12.0 FL 10/15/2022 4:59 PM CDT [facility] CBC COMMENT AUTOMATED RBC MORPHOLOGY AND PLATELET EVALUATION NORMAL 10/15/2022 4:59 PM CDT [facility] NEUTROPHILS % 58.4 40.0 - 74.0 % 10/15/2022 4:59 PM CDT [facility] LYMPHOCYTES % 31.5 14.0 - 46.0 % 10/15/2022 4:59 PM CDT [facility] MONOCYTES % 6.3 4.0 - 13.0 % 10/15/2022 4:59 PM CDT [facility] EOSINOPHILS 2.6 0.0 - 7.0 % 10/15/2022 4:59 PM CDT [facility] BASOPHILS 0.9 0.0 - 3.0 % 10/15/2022 4:59 PM CDT [facility] IMMATURE GRANS % 0.3 0.0 - 0.43 % 10/15/2022 4:59 PM CDT [facility] NRBC 0.0 % 10/15/2022 4:59 PM CDT [facility] ABS. NEUTROPHILS TOTAL 4.52 1.69 - 7.81 x10'3/uL 10/15/2022 4:59 PM CDT [facility] ABS. LYMPHOCYTES 2.44 0.21 - 5.42 x10'3/uL 10/15/2022 4:59 PM CDT [facility] ABS. MONOCYTES 0.49 0.04 - 1.37 x10'3/uL 10/15/2022 4:59 PM CDT [facility] ABS. EOSINOPHILS 0.20 0.00 - 0.68 x10'3/uL 10/15/2022 4:59 PM CDT [facility] ABS. BASOPHILS 0.07 0.00 - 0.08 x10'3/uL 10/15/2022 4:59 PM CDT [facility] ABS. IMMATURE GRANULOCYTES 0.02 0.00 - 0.06 x10'3/uL 10/15/2022 4:59 PM CDT [facility] ABS. NUCLEATED RBC'S 0.00 0.00 x10'3/uL 10/15/2022 4:59 PM CDT [facility] 10/15/2022 4:29 PM CDT us Carlota Shaw MD LABORATORY Final Result [address] [place] [address], documented in this encounter Visit Diagnoses Diagnosis [...] RN) documented in this encounter Care Teams French Folding Machine Operator Relationship Specialty Start Date End Date Minnie Mcneil MD PCP - General INTERNAL MEDICINE 03/02/19 06/03/23 documented as of this encounter
--- OUTSIDE RECORDS SUMMARY | 2024-07-12 16:04 | XMS_ITS | Patient Health Summary ---
Author Organization [facility] Address [address] [place] [address] Care Team Providers Care Kiln Fireman Name Role Phone Minnie Mcneil MD Primary Care Provider [phone] Note from [facility],non-owned Affiliates and Associated Physician Practices is amultiple site organization consisting of ambulatory clinics and hospital sitesin [place] and [place]. This disclosure is being madepursuant to the Care Everywhere program and may not contain all information available regarding this patient. Last updated 18.[facility] Allergies No known active allergies Medications * [...] 36.1 ??C (97 ??F) 08/15/2020 3:29 PM SEWING MACHINE OPERATOR PAPER BAGS Respiratory Rate 16 04/12/2017 12:06 AM CDT Oxygen Saturation 99% 08/15/2020 3:29 PM SEWING MACHINE OPERATOR PAPER BAGS Inhaled Oxygen Concentration - - Weight 71 kg (156 lb 9.6 oz) 03/05/2022 3:04 PM CDT Height 157.5 cm (5' 2 ) 03/05/2022 3:04 PM CDT Body Mass Index 28.64 03/05/2022 3:04 PM CDT Procedures * PAP IG LB(Performed 08/15/2020) * PAP IG LB(Performed 08/07/2017) Performed for Well woman exam with routine gynecological exam Results * PAP IG LB (08/15/2020 4:08 AM SEWING MACHINE OPERATOR PAPER BAGS) Only the most recent of2 resultswithin the time period is included. Diagnosis [facility] INSURANCE BILL Comment:NEGATIVE FOR INTRAEP ITHELIAL LESION OR MALIGNANCY. Specimen Adequacy [facility] INSURANCE BILL Comment: Satisfactory for evaluation. ??Endocervical and/or squamous metaplastic cells (endocervical component) are present. Clinician Provided ICD10 [facility] INSURANCE BILL Comment:Z01.419 Performed by [email or web address] INSURANCE BILL Comment:Eliazar Li totechnologist (ASCP) Comment . [facility] INSURANCE BILL Note [facility] INSURANCE BILL Comment: The Pap smear is a screening test designed to aid in the detection of premalignant and malignant conditions of the uterine cervix. ??It is not a diagnostic procedure and should not be used as the sole means of detecting cervical cancer. ??Both false-positive and false-negative reports do occur. ? . [facility] CPT Code Automation [facility] INSURANCE BILL Comment: This liquid based ThinPrep(R) pap test was screened with the use of an image guided system. 08/15/2020 4:08 AM SEWING MACHINE OPERATOR PAPER BAGS 08/15/2020 Narrative [facility] - 08/17/2020 5:08 PM SEWING MACHINE OPERATOR PAPER BAGS Source.............Cervix No. of containers..01 ThinPrep Vial Resulting Agency Comment Lab Testing performed at: [address] ??[place] [id number] Fior Saravia MD LAB - PATHOLOGY/CYTO LOGY ORDERABLES [facility] INSURANCE BILL [address] [place] [address] Care Teams Kiln Fireman Relationship Specialty Start Date End Date Minnie Mcneil MD PCP - General Internal Medicine 05/07/19
--- OUTSIDE RECORDS SUMMARY | 2024-07-12 16:04 | XMS_ITS | Encounter Summary ---
Author Organization [facility] Address [address] [place] [address]. 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
--- OUTSIDE RECORDS SUMMARY | 2024-07-12 16:04 | XMS_ITS | Encounter Summary ---
Author Organization [facility] Address [address] [place] [address]. 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
--- OUTSIDE RECORDS SUMMARY | 2024-07-12 16:04 | XMS_ITS | Encounter Summary ---
Author Organization [facility] Address [address] [facility] [address] [place] [address] Care Team Providers Care Government Gauger Name Role Phone Minnie Mcneil MD Primary Care Provider [phone] Reason for Visit * Reason Comments Refill Request Encounter Details Date Type Department Care Team (Late st Contact Info) Description 11/18/2020 Refill [facility] - CADMIUM LIQUOR MAKER [address] [place] [address] Fior Saravia MD [address] [place] [address] Refill Request Social History Tobacco [...] on filedocumented in this encounter Care Teams Government Gauger Relationship Specialty Start Date End Date Minnie Mcneil MD PCP - General Internal Medicine 05/07/19 documented as of this encounter
--- OUTSIDE RECORDS SUMMARY | 2024-07-12 16:04 | XMS_ITS | Encounter Summary ---
Author Organization [facility] Address [address] [place] [address]. [place], [place] [address] [place] [address] Care Team Providers Care Muskrat Trapper Name Role Phone Unavailable Primary Care Provider Unavailabl e Encounter Details Date Type Department Care Team (Late st Contact Info) Description 03/14/2016 Abstract [facility] Conversion Md, Generic Conversion, Social History Tobacco [...]
--- OUTSIDE RECORDS SUMMARY | 2024-07-12 16:04 | XMS_ITS | Encounter Summary ---
Author Organization [facility] Address [address] [place] [address]. [place] [address] [place] [address] Care Team Providers Care Database Administration Project Manager Name Role Phone Unavailable Primary Care Provider Unavailabl e Encounter Details Date Type Department Care Team (Late st Contact Info) Description 03/14/[address] [facility] Conversion Md, Generic Conversion, Social History [...] by: Bharat Delvalle MD Date: 03/14/2016 09:56 STOCK FARMER documented in this encounter Miscellaneous Notes * Letter - Bharat Delvalle MD - 03/14/2016 12:00 AM CDT 03-14-2016 [address] [place] [id number] , Tessie Noriega [address] [place] [address] : 1995 Radiology X-Ray Shoulder L R B Pain in left [id number] Normal [] Stat [] Electronically Signed By: Bharat Delvalle MD STOCK FARMER documented in this encounter Plan of Treatment Not on file documented as of this encounter Visit Diagnoses Not on filedocumented in this encounter
--- OUTSIDE RECORDS SUMMARY | 2024-07-12 16:04 | XMS_ITS | Encounter Summary ---
Author Organization [facility] Address [address] [place] [address] Care Team Providers Care Hogshead Opener Name Role Phone Minnie Mcneil MD Primary Care Provider [phone] Reason for Visit * Reason Comments Refill Request Encounter Details Date Type Department Care Team (Late st Contact Info) Description 01/01/2022 Refill [facility] - PMP CERTIFIED PROJECT MANAGER [address] [place] [address] Fior Saravia MD [address] [place] [address] Refill Request Social History Tobacco [...] on filedocumented in this encounter Care Teams Hogshead Opener Relationship Specialty Start Date End Date Minnie Mcneil MD PCP - General Internal Medicine 05/07/19 documented as of this encounter
--- OUTSIDE RECORDS SUMMARY | 2024-07-12 16:04 | XMS_ITS | Encounter Summary ---
Author Organization [facility] Address [address] [place] [address]. [place] [address] [place] [address] Care Team Providers Care Field Supervisor Name Role Phone Unavailable Primary Care Provider Unavailabl e Encounter Details Date Type Department Care Team (Late st Contact Info) Description 03/14/2016 Abstract [facility] [address] [place] [address] Bharat Delvalle MD [address] [facility] [address] [place] [address] Social History Tobacco Use Types Packs/Day Years [...]
--- OUTSIDE RECORDS SUMMARY | 2024-07-12 16:04 | XMS_ITS | Encounter Summary ---
Author Organization [facility] Address [address] [place] [address] Care Team Providers Care Rice Field Worker Name Role Phone Minnie Mcneil MD Primary Care Provider [phone] Encounter Details Date Type Department Care Team [...] COVID-19? No / Unsure 08/12/2020 3:22 PM CAD MANAGER documented as of this encounter Plan of Treatment Not on file documented as of this encounter Visit Diagnoses Not on filedocumented in this encounter Care Teams Rice Field Worker Relationship Specialty Start Date End Date Minnie Mcneil MD PCP - General Internal Medicine 05/07/19 documented as of this encounter
--- OUTSIDE RECORDS SUMMARY | 2024-07-12 16:04 | XMS_ITS | Encounter Summary ---
Author Organization [facility] Address [address] [place] [address] Care Team Providers Care Sports Recruiter Name Role Phone Minnie Mcneil MD Primary Care Provider [phone] Reason for Visit * Reason Comments Refill Request Encounter Details Date Type Department Care Team (Late st Contact Info) Description 11/10/2021 Refill [facility] - ASSOCIATE AUTOMATION ENGINEER [address] [place] [address] Fior Saravia MD [address] [place] [address] Refill Request Social History Tobacco [...] on filedocumented in this encounter Care Teams Sports Recruiter Relationship Specialty Start Date End Date Minnie Mcneil MD PCP - General Internal Medicine 05/07/19 documented as of this encounter
--- OUTSIDE RECORDS SUMMARY | 2024-07-12 16:04 | XMS_ITS | Encounter Summary ---
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 No IRON POURER concerns. Happy w/OCP. No side effects or problems remembering. Wants to continue pill, declines alternative route of contraception. Not planning for a few yrs when she and spouse finish [place] and they move. No breast concerns. Denies domestic violence, depression or SI. 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 Going to sell their land in [place] and move closer to [facility]. Review of Systems: A 12 point [...] changes, or exudate BUS: Normal Bartholin's and Swan's glands Urinary: Urethral meatus normal without masses. [...] examination documented in this encounter Care Teams Box Annealer Relationship Specialty Start Date End Date Minnie Mcneil MD PCP - General Internal Medicine 05/07/19 documented as of this encounter
--- OUTSIDE RECORDS SUMMARY | 2024-07-12 16:04 | XMS_ITS | Encounter Summary ---
Author Organization [facility] Address [address] [facility] [place] [address] Care Team Providers Care Retail Marketing Executive Name Role Phone Minnie Mcneil MD Primary Care Provider [phone] Reason for Visit * Reason Comments Menstrual Problem pt here for having i rreguar periods for 2 months(light to spotting for 2-3 days at a time) Encounter Details Date Type Department Care Team (Late st Contact Info) Description 05/07/2019 4:15 PM CDT Office Visit [facility] Medical [facility] - ENVIRONMENTAL SCIENCES PROFESSOR [address] [place] [address] Keysha Garcia MD [address] [place] [address] DUB (dysfunctional uterine bleeding) (Primary [...] Garcia MD - 05/08/2019 6:48 PM CDT TRUMPET PLAYER NOTE HPI Tessie Tanner is an 24 [...] file Gets together: Not on file Attends jewish service: Not on file Active member of [...] on file Social History Narrative 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 No Known Allergies OB History 0 Para [...] Metrorrhagia documented in this encounter Care Teams Retail Marketing Executive Relationship Specialty Start Date End Date Minnie Mcneil MD PCP - General Internal Medicine 05/07/19 documented as of this encounter
--- OUTSIDE RECORDS SUMMARY | 2024-07-12 16:04 | XMS_ITS | Encounter Summary ---
Author Organization [facility] Address [address] [facility] [place] [address] Care Team Providers Care Sanitation Associate Name Role Phone Minnie Mcneil MD Primary Care Provider [phone] Reason for Visit * Reason Comments Refill Request Encounter Details Date Type Department Care Team (Late st Contact Info) Description 12/05/2021 Refill [facility] - REGENERATION OPERATOR [address] [place] [address] Fior Saravia MD [address] [place] [address] Refill Request Social History Tobacco [...] on filedocumented in this encounter Care Teams Sanitation Associate Relationship Specialty Start Date End Date Minnie Mcneil MD PCP - General Internal Medicine 05/07/19 documented as of this encounter
--- OUTSIDE RECORDS SUMMARY | 2024-07-12 16:04 | XMS_ITS | Encounter Summary ---
Author Organization [facility] Address [address] [facility] [place] [address] Care Team Providers Care Photographic Supervisor Name Role Phone Unavailable Primary Care Provider Unavailabl e Reason for Visit * Reason Onset Date Comments Reminder Call 05/27/2018 card mailed to adina CARRILLO on 08/08/18 Encounter Details Date Type Department Care Team (Late st Contact Info) Description 05/27/2018 Telephone [facility] Medical [facility] - PLSQL DEVELOPER [address] [place] [address] Fior Saravia MD [address] [place] [address] Reminder Call (card mailed to [...]
--- OUTSIDE RECORDS SUMMARY | 2024-07-12 16:04 | XMS_ITS | Encounter Summary ---
Author Organization [facility] Address [address] [place] [address]. [place] [address] [place] [address] Care Team Providers Care Flame Hardening Machine Setter Name Role Phone Minnie Mcneil MD Primary Care Provider Encounter Details Date Type Department Care Team (Late st Contact Info) Description 04/17/2016 Abstract [facility] [address] [place] [address] Romeo Steele MD [address] [place] [address] Social History Tobacco Use Types Packs/Day Years [...] on filedocumented in this encounter Care Teams Flame Hardening Machine Setter Relationship Specialty Start Date End Date Minnie Mcneil MD PCP - General INTERNAL MEDICINE 03/02/19 06/03/23 documented as of this encounter
--- OUTSIDE RECORDS SUMMARY | 2024-07-12 16:04 | XMS_ITS | Encounter Summary ---
Author Organization [facility] Address [address] [facility] [place] [address] Care Team Providers Care Varnish Maker Name Role Phone Minnie Mcneil MD Primary Care Provider [phone] Reason for Visit * Reason Comments Department Editor Exam irregular periods Encounter Details Date Type Department Care Team (Late st Contact Info) Description 09/08/2019 2:40 PM COLLECTION SUPPORT SPECIALIST Office Visit [facility] Medical [facility] - TEST ARCHITECT [address] [place] [address] Fior Saravia MD [address] [place] [address] Breakthrough bleeding on OCPs (Primary [...] Comments Blood Pressure 133/91 09/08/2019 2:37 PM COLLECTION SUPPORT SPECIALIST Pulse 76 09/08/2019 2:37 PM COLLECTION SUPPORT SPECIALIST Temperature 36.6 ??C (97.9 ??F) 09/08/2019 2:37 PM CS T Respiratory Rate - - Oxygen Saturation - - Inhaled Oxygen Concentration - - Weight 66.6 kg (146 lb 12.8 oz) 09/08/2019 2:37 PM COLLECTION SUPPORT SPECIALIST Height 160 cm (5' 3 ) 09/08/2019 2:37 PM COLLECTION SUPPORT SPECIALIST Body Mass Index 26 09/08/2019 2:37 PM COLLECTION SUPPORT SPECIALIST documented in this encounter Progress Notes * Fior Saravia MD - 09/08/2019 2:37 PM CST SHIRRING MACHINE OPERATOR AUTOMATIC Office Visit (Established) HISTORY Tessie is a [...] didn't want to have a period on [place]. Reports her pain w/intercourse has improved a lot. Does have some light bleeding w/intercourse. Papnormal and UTD. SHIRRING MACHINE OPERATOR AUTOMATIC History Menarche: 12 yo Menses: prior to [...] last yr (honeymooned in [place]). Works in [employer], graduated college 2 yr ago. 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 Review of Systems: A 10 point ROS [...] changes, or exudate BUS: Normal Bartholin's and Elroy's glands Urinary: Urethral meatus normal without masses. [...] MG-MCG tablet See orders, medications, patient instructions. ECTION SUPPORT SPECIALIST documented in this encounter Plan of Treatment Not on file documented as of this encounter Visit Diagnoses Diagnosis Breakthrough bleeding on OCPs- Primary Metrorrhagia documented in this encounter Care Teams Varnish Maker Relationship Specialty Start Date End Date Minnie Mcneil MD PCP - General Internal Medicine 05/07/19 documented as of this encounter
--- OUTSIDE RECORDS SUMMARY | 2024-07-12 16:04 | XMS_ITS | Encounter Summary ---
Author Organization [facility] Address [address] [place] [place] [address] Care Team Providers Care Music Coordinator Name Role Phone Minnie Mcneil MD Primary Care Provider [phone] Reason for Visit * Reason Comments Refill Request Encounter Details Date Type Department Care Team (Late st Contact Info) Description 03/02/2022 Refill [facility] - CNP [address] [place] [address] Fior Saravia MD [address] [place] [address] Refill Request Social History Tobacco [...] on filedocumented in this encounter Care Teams Music Coordinator Relationship Specialty Start Date End Date Minnie Mcneil MD PCP - General Internal Medicine 05/07/19 documented as of this encounter
--- OUTSIDE RECORDS SUMMARY | 2024-07-12 16:04 | XMS_ITS | Clinical Summary ---
Author Organization [facility] Address [address] [place] [address]. 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
--- OUTSIDE RECORDS SUMMARY | 2024-07-12 16:04 | XMS_ITS | Encounter Summary ---
Author Organization [facility] Address [address] [facility] [place] [address] Care Team Providers Care Inspector Structural Bonding Name Role Phone Minnie Mcneil MD Primary Care Provider [phone] Reason for Visit * Reason Comments Refill Request Encounter Details Date Type Department Care Team (Late st Contact Info) Description 01/30/2022 Refill [facility] - LIQUID FLAVOR COMPOUNDER [address] [place] [address] Fior Saravia MD [address] [place] [address] Refill Request Social History Tobacco [...] on filedocumented in this encounter Care Teams Inspector Structural Bonding Relationship Specialty Start Date End Date Minnie Mcneil MD PCP - General Internal Medicine 05/07/19 documented as of this encounter
--- OUTSIDE RECORDS SUMMARY | 2024-07-12 16:04 | XMS_ITS | Encounter Summary ---
Author Organization [facility] Address [address] [place] [address]. [place] [address] [place] [address] Care Team Providers Care Air Carrier Maintenance Inspector Name Role Phone None, Provider MD Primary Care Provider Unavaila ble Reason for Visit * Reason Comments New Patient Wellness Program Need form filled out for work Encounter Details Date Type Department Care Team (Late st Contact Info) Description 01/24/2024 8:20 AM CDT Office Visit [facility] Family Medicine 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 [employer] and its affiliates disclaim any warranty or liability relating to this information or the use thereof. The use of this information is governed by the Terms of Use, available at https://www.[employer]/en/know/rnhjjqay-xwqkgkrivqkfc-dqxmy Copyright Copyright ?? 2022 [employer]. and its affiliates and/or licensors. 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 Tobacco Use Smoking status: Never Passive [...] 197 <200 MG/DL 01/24/2024 2:58 PM CDT [facility] TRIGLYCERIDES 55 <150 MG/DL 01/24/2024 2:58 PM CDT [facility] HDL 70 >40 MG/DL 01/24/2024 2:58 PM CDT [facility] LDL-C 116(H) <100 MG/DL 01/24/2024 2:58 PM CDT [facility] VLDL CALCULATION 11 5 - 28 MG/DL 01/24/2024 2:58 PM CDT [facility] CHOL/HDL RATIO 2.8 0.0 - 4.0 01/24/2024 2:58 PM CDT [facility] LDL/HDL 1.7 0.41 - 2.13 01/24/2024 2:58 PM CDT [facility] NON HDL CHOLESTEROL 127 <140 MG/DL 01/24/2024 2:58 PM CDT [facility] 01/24/2024 9:01 AM CDT Dora Hernandez MD LABORATORY Final Re sult [facility] [address] [place] [address], * HEMOGLOBIN, GLYCOSYLATED (01/24/2024 9:01 AM CDT) HGB A1C 4.9 4.5 - 6.2 % 01/24/2024 2:16 PM CDT [facility] ESTIMATED AVG GLUCOSE 94 74 - 106 MG/DL 01/24/2024 2:16 PM CDT [facility] 01/24/2024 9:01 AM CDT Dora Hernandez MD LABORATORY Final Re sult -[facility] [address] [place] [address], documented in this encounter Visit Diagnoses Diagnosis Routine general medical examination at a health care facility- Primary Need for ekjkobuypn-mztawol-ehhlnmtmp (Tdap) vaccine Need for prophylactic vaccination with combined usyjkeuuci-ybiymlt-foilseupf (DTP) vaccine documented in this encounter Care Teams Air Carrier Maintenance Inspector Relationship Specialty Start Date End Date None, Provider, PCP - General UNKNOWN PHYSICIAN SPECIALTY 06/04/23 documented as of this encounter
--- OUTSIDE RECORDS SUMMARY | 2024-07-12 16:04 | XMS_ITS | Encounter Summary ---
Author Organization [facility] Address [address] [place] [address]. [place] [address] [place] [address] Care Team Providers Care Distribution Manager Name Role Phone Minnie Mcneil MD Primary Care Provider Reason for Visit * Reason Comments New Patient establish care Encounter Details Date Type Department Care Team (Late st Contact Info) Description 03/02/2019 8:20 AM CDT Office Visit [facility] Family & Internal Medicine [address] [address] Minnie Mcneil MD [address] [place] [address] New Patient (establish care ) Social [...] female who had previously been with the math interventionist, getting next month, wanted to establish herself with primary care. She has a history of allergic rhinitis and asthma which has been extremely well controlled since she started Symbicort. She does not presently need any refills. She takes Junel iron per her INSURANCE ACCOUNT EXECUTIVE that she sees regularly. She has no [...] file Gets together: Not on file Attends methodist service: Not on file Active member of [...] well controlled. Allergic rhinitis. She can use [facility] as her primary care as well, would [...] trigger documented in this encounter Care Teams Distribution Manager Relationship Specialty Start Date End Date Minnie Mcneil MD PCP - General INTERNAL MEDICINE 03/02/19 06/03/23 documented as of this encounter
--- OUTSIDE RECORDS SUMMARY | 2024-07-12 16:07 | XMS_ITS | Encounter Summary ---
Author Organization [facility] Address [address] [place] [address] Phone Care Team Providers Care Echocardiologist Name Role Phone Minnie Mcneil MD Primary Care Provider [phone] Encounter Details Date Type Department Care Team (Late st Contact Info) Description 03/03/2021 Orders Only [facility] Pulmonary [address] [facility] Advanced Medicine 8th [place] [address] [place] [address] Casie Lowe MD PhD [address] [facility] [address] [place] [address] Social History Tobacco Use Types Packs/Day Years Used Date Smoking Tobacco: Never Smokeless Tobacco: Never Comments Unknown Sex and Gender Information Value Date Recorded Sex Assigned at Not on file Legal Sex Female 7:31 AM COLD ROLLING COORDINATOR Gender Identity Female 10/30/2021 8:16 AM CDT [...] documented as of this encounter Care Teams Echocardiologist Relationship Specialty [place] [address] [address] PCP - General Internal Medicine 05/04/19 documented as of this encounter
--- OUTSIDE RECORDS SUMMARY | 2024-07-12 16:07 | XMS_ITS | Encounter Summary ---
Author Organization [facility] Address [address] [place] [address] Phone Care Team Providers Care Infertility Nurse Name Role Phone Minnie Mcneil MD Primary Care Provider [phone] Reason for Visit * Reason Onset Date Comments Med Refill 02/15/2020 Encounter Details Date Type Department Care Team (Late st Contact Info) Description 02/15/2020 Documentation [facility] Pulmonary [address] 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 Refill called in to [facility] in [facility], budesonide-formoterol (SYMBICORT) 160- 4.5 mcg/actuation inhaler 1 dispensed, 5 refills documented in this encounter Plan of Treatment Not on file documented as of this encounter Visit Diagnoses Not on filedocumented in this encounter Care Teams Infertility Nurse Relationship Specialty [place] [address] [address] PCP - General Internal Medicine 05/04/19 documented as of this encounter
--- OUTSIDE RECORDS SUMMARY | 2024-07-12 16:07 | XMS_ITS | Encounter Summary ---
Author Organization [facility] Address [address] [place] [address] Phone Care Team Providers Care Lithographic Proofer Apprentice Name Role Phone Minnie Mcneil MD Primary Care Provider [phone] Encounter Details Date Type Department Care Team (Late st Contact Info) Description 02/16/2020 Orders Only [facility] Pulmonary [address] [facility] Advanced Medicine 8th [place] [address] [place] [address] Casie Lowe MD PhD [address] [facility] [address] [place] [address] Social History Tobacco Use Types Packs/Day Years Used Date Smoking Tobacco: Never Smokeless Tobacco: Never Comments Unknown Sex and Gender Information Value Date Recorded Sex Assigned at Not on file 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
--- OUTSIDE RECORDS SUMMARY | 2024-07-12 16:07 | XMS_ITS | Encounter Summary ---
Author Organization [facility] [place] [facility] Address [address] [facility] [address] [place] [address] Phone Care Team Providers Care Entry Rep Name Role Phone Minnie Mcneil MD Primary Care Provider [phone] Tabby Hopkins RN Unavailable Unavailabl e Reason for Referral * Pulmonology (Routine) - Closed Specialty Diagnoses / Procedures Referred By Krystina jansen Referred To Contact Pulmonary Disease Diagnoses Moderate persistent asthma, unspecified whether complicated Procedures Pulmonary Function Test -[facility] Adult PFT Lab- CAM-8D; Spirometry Casie Lowe MD PhD [address] [facility] [address] [place] [address] Phone: tel: fax: Referral ID Status Reason Start Date Expiration Date Visits Re quested Visits Authorized [id number] Closed 10/30/2021 1 1 Reason for Visit * Pulmonology (Routine) - Closed Specialty Diagnoses / Procedures Referred By Contsonal jansen Referred To Contact Pulmonary Disease Diagnoses Moderate persistent asthma, unspecified whether complicated Procedures Pulmonary Function Test -[facility] Adult PFT [facility]- CAM-8D; Spirometry Casie Lowe MD PhD [address] [facility] [address] [place] [address] Phone: tel: fax: Referral ID Status Reason Start Date Expiration Date Visits Re quested Visits Authorized [id number] Closed 10/30/2021 1 1 Encounter Details Date Type Department Care Team (Latest Contact Info) Description 04/29/2023 12:29 PM CDT - 04/29/2023 11:59 PM CDT Hospital Encounter [facility] Pulmonary [address] [facility] [address] [place] [address] Moderate persistent asthma, unspecified whether complicated Discharge Disposition: Discharge to home or self care Social History Tobacco Use Types Packs/Day Years Used Date Smoking Tobacco: Never Smokeless Tobacco: Never Comments Unknown Sex and Gender Information Value Date Recorded Sex Assigned at Not on file 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 However, the [facility] Pulmonary Function Laboratory defines hypoxemia as a PO2 <55 or a %HbO2 <89. Narrative 04/29/2023 12:50 PM CDT PFT performed at:->[facility] Adult PFT Lab- CAM-8D Procedure:->Spirometry Pulmonary Function Test Interpretation SPIROMETRY: The flow-volume curve is normal. ??The FEVI and FVC are normal. The FEVI to FVC ratio is normal. us Casie Lowe MD PhD PFT ORDERABLES Final Resul t documented in this encounter Visit Diagnoses Diagnosis Moderate persistent asthma, unspecified whether complicated documented in this encounter Care Teams Entry Rep Relationship Specialty [place] [address] [address] PCP - General Internal Medicine 05/04/19 Tabby Hopkins, RN Registered Nurse Pulmonary Disease 04/29/23 documented as of this encounter
--- OUTSIDE RECORDS SUMMARY | 2024-07-12 16:07 | XMS_ITS | Encounter Summary ---
Author Organization [facility] Address [address] [place] [address] Phone Care Team Providers Care Mill Operator Name Role Phone Zunilda Coles MD Primary Care Provider + Encounter Details Date Type Department Care Team (Late st Contact Info) Description 04/23/2019 Orders Only 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
--- OUTSIDE RECORDS SUMMARY | 2024-07-12 16:07 | XMS_ITS | Encounter Summary ---
Author Organization [facility] Address [address] [facility] [address] [place] [address] Phone Care Team Providers Care Occupational Health Coordinator Name Role Phone Minnie Mcneil MD Primary Care Provider [phone] Tabby Hopkins RN Unavailable Unavailabl e Reason for Referral * Procedure (Routine) - Authorized Specialty Diagnoses / Procedures Referred By Krystina t Referred To Contact Diagnoses Mild intermittent asthma, unspecified whether complicated Procedures Pulmonary Function Test -[facility] Adult PFT Lab- CAM-8D; Spirometry David Goff MD [address] [facility] [address] [place] [address] Phone: tel: fax: Referral ID Status Reason Start Date Expiration Date V isits Requested Visits Authorized [id number] Authorized 04/29/2023 05/28/2024 1 1 Encounter Details Date Type Department Care Team (Late st Contact Info) Description 04/29/2023 1:00 PM CDT Office Visit [facility] Pulmonary [address] [facility] 8th [place] [address] [place] [address] Casie Lowe MD PhD [address] [place] [address] Mild intermittent asthma, unspecified whether complicated (Primary Dx) Social History Tobacco Use Types Packs/Day Years Used Date Smoking Tobacco: Never Smokeless Tobacco: Never Comments Unknown Sex and Gender Information Value Date Recorded Sex Assigned at Not on file 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 [...] to do it. Casie Lowe MD, MPH facing machine operator documented in this encounter Plan of Treatment Scheduled Orders Name Type Priority Associated Diagnoses Orde r Schedule Pulmonary Function Test -[facility] Adult [facility]FT [facility]- CAM-8D; Spirometry PFT Routine Mild intermittent asthma, unspecified whether complicated Expected: 10/28/2024, Expires: 12/04/2024 documented as of this encounter Visit Diagnoses Diagnosis Mild intermittent asthma, unspecified whether complicated- Primary documented in this encounter Care Teams Occupational Health Coordinator Relationship Specialty [place] [address] [address] PCP - General Internal Medicine 05/04/19 Tabby Hopkins RN Registered Nurse Pulmonary Disease 04/29/23 documented as of this encounter
--- OUTSIDE RECORDS SUMMARY | 2024-07-12 16:07 | XMS_ITS | Encounter Summary ---
Author Organization [facility] Address [address] [place] [address] Phone Care Team Providers Care Delivery Coordinator Name Role Phone Zunilda Coles MD Primary Care Provider + Encounter Details Date Type Department Care Team (Late st Contact Info) Description 04/14/2018 3:30 PM CDT Office Visit [facility] Pulmonary [address] [facility] Advanced Medicine 8th [place] [address] [place] [address] Dann Vega MD [address] [place], [place] [id number] Moderate persistent asthma without complication (Primary Dx); Vocal cord dysfunction Social History Tobacco Use Types Packs/Day Years Used Date Smoking Tobacco: Never Smokeless Tobacco: Never Comments Unknown Sex and Gender Information Value Date Recorded Sex Assigned at Not on file Legal Sex Female 7:31 AM CHAPTER RELATIONS ADMINISTRATOR Gender Identity Female 10/30/2021 8:16 AM CDT [...] - 04/16/2018 06:18 PM Dann Vega M.D. report developer RISHABH/[email or web address]/[email or web address] cc: ZUNILDA COLES MD [address] [facility] [address], [place] [address] / ELIOT GUZMAN RN [address] [facility] [address] [place] [address] documented in this encounter Plan of Treatment [...] 04/14/2018 documented in this encounter Care Teams Delivery Coordinator Relationship Specialty Start Date End Date Zunilda Coles MD [address] [place] [address] PCP - General 06/03/17 05/03/19 documented as of this encounter
--- OUTSIDE RECORDS SUMMARY | 2024-07-12 16:07 | XMS_ITS | Encounter Summary ---
Author Organization [facility] Address [address] [place] [address] Phone Care Team Providers Care Final Assembly Inspector Name Role Phone Zunilda Coles MD Primary Care Provider + Minnie Mcneil MD Primary Care Provider Tabby Hopkins RN Unavailable Unavailabl e Encounter Details Date Type Department Care Team (Latest Contact Info) Description 09/11/2017 Orders Only [facility] CONVERSION Scanning, Provider Social History Tobacco Use Types Packs/Day Years Used Date Smoking Tobacco: Never Comments Unknown Sex and Gender Information Value Date Recorded Sex Assigned at Not on file Legal Sex Female 7:31 AM LIGHTING FIXTURES DECORATOR Gender Identity Female 10/30/2021 8:16 AM CDT Sexual Orientation Not on file documented as of this encounter Plan of Treatment Not on file documented as of this encounter Procedures Procedure Name Priority Date/Time Associated Diagnosis Comments PULMONARY FUNCTION TEST (PFT) 09/11/2017 1:22 PM LIGHTING FIXTURES DECORATOR documented in this encounter Results * PULMONARY FUNCTION TEST (PFT) (09/11/2017 1:22 PM LIGHTING FIXTURES DECORATOR) Anatomical Region Laterality Modality PFT us Provider Scanning PFT ORDERABLES Edited Result - Final documented in this encounter Visit Diagnoses Not on filedocumented in this encounter Care Teams Final Assembly Inspector Relationship Specialty Start Date End Date Zunilda Coles MD [address] [facility] [place] [address] PCP - General 06/03/17 05/03/19 [place] [address] [address] [address] PCP - General Internal Medicine 05/04/19 Tabby Hopkins, RN Registered Nurse Pulmonary Disease 04/29/23 documented as of this encounter
--- OUTSIDE RECORDS SUMMARY | 2024-07-12 16:07 | XMS_ITS | Encounter Summary ---
Author Organization [facility] Address [address] [place] [address] Phone Care Team Providers Care Supervisor Matrix Name Role Phone Minnie Mcneil MD Primary Care Provider [phone] Encounter Details Date Type Department Care Team (Late st Contact Info) Description 03/03/2021 Orders Only [facility] Pulmonary [address] [facility] Advanced Medicine 8th [place] [address] [place] [address] Casie Lowe MD PhD [address] [facility] [address] [place] [address] Social History Tobacco Use Types Packs/Day Years Used Date Smoking Tobacco: Never Smokeless Tobacco: Never Comments Unknown Sex and Gender Information Value Date Recorded Sex Assigned at Not on file 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
--- OUTSIDE RECORDS SUMMARY | 2024-07-12 16:07 | XMS_ITS | Encounter Summary ---
Author Organization [facility] Address [address] [place] [address] Phone Care Team Providers Care Community Placement Worker Name Role Phone Minnie Mcneil MD Primary Care Provider [phone] Encounter Details Date Type Department Care Team (Late st Contact Info) Description 03/02/2021 Orders Only [facility] Pulmonary [address] [facility] Advanced Medicine 8th [place] [address] [place] [address] Casie Lowe MD PhD [address] [facility] [address] [place] [address] Social History Tobacco Use Types Packs/Day Years Used Date Smoking Tobacco: Never Smokeless Tobacco: Never Comments Unknown Sex and Gender Information Value Date Recorded Sex Assigned at Not on file Legal Sex Female 7:31 AM PANELBOARD OPERATOR Gender Identity Female 10/30/2021 8:16 AM [...] documented as of this encounter Care Teams Community Placement Worker Relationship Specialty [place] [address] [address] PCP - General Internal Medicine 05/04/19 documented as of this encounter
--- OUTSIDE RECORDS SUMMARY | 2024-07-12 16:07 | XMS_ITS | Encounter Summary ---
Author Organization [facility] Address [address] [place] [address] Phone Care Team Providers Care Scrubbing Machine Operator Name Role Phone Minnie Mcneil MD Primary Care Provider [phone] Encounter Details Date Type Department Care Team (Late st Contact Info) Description 03/06/2021 Telephone [facility] Pulmonary [address] [facility] 8th [place] [address] [place] [address] Malorie Eisenberg CMA Social History Tobacco Use Types Packs/Day Years Used Date Smoking Tobacco: Never Smokeless Tobacco: Never Comments Unknown Sex and Gender Information Value Date Recorded Sex Assigned at Not on file Legal Sex Female 7:31 AM SINGLE NEEDLE OPERATOR Gender Identity Female 10/30/2021 8:16 AM [...] on filedocumented in this encounter Care Teams Scrubbing Machine Operator Relationship Specialty [place] [address] [address] [address] PCP - General Internal Medicine 05/04/19 documented as of this encounter
--- OUTSIDE RECORDS SUMMARY | 2024-07-12 16:07 | XMS_ITS | Encounter Summary ---
Author Organization [facility] Address [address] [place] [address] Care Team Providers Care Sash Maker Name Role Phone Unavailable Primary Care Provider Unavailabl e Encounter Details Date Type Department Care Team (Latest Contact Info) Description 03/01/2016 6:39 PM CDT - 03/01/2016 9:20 PM CDT Hospital Encounter [facility] Aamir Leonard, [address] [address] Asthma with acute exacerbation; Activity involving soccer Social History Tobacco Use Types Packs/Day Years Used Date Smoking Tobacco: Never Assessed Comments Unknown Sex and Gender Information Value Date Recorded Sex Assigned at Not on file Legal Sex Female 7:31 AM DEVELOPMENT DIRECTOR Gender Identity Female 10/30/2021 8:16 AM [...]
--- OUTSIDE RECORDS SUMMARY | 2024-07-12 16:07 | XMS_ITS | Encounter Summary ---
Author Organization [facility] Facility Care Team Providers Care Scrap Hooker Name Role Phone Unavailable Primary Care Provider Unavailabl e Encounter Details Date Type Department Care Team (Late st Contact Info) Description 10/22/2006 10:21 PM CDT - 10/24/2006 10:48 AM CDT Hospital Encounter [facility] Social History Tobacco Use Types Packs/Day Years Used Date Smoking Tobacco: Never Assessed Comments Unknown Sex and Gender Information Value Date Recorded Sex Assigned at Not on file Legal Sex Female 7:31 AM FREIGHT SEPARATOR Gender Identity Female 10/30/2021 8:16 AM CDT Sexual Orientation Not on file documented as of this encounter Plan of Treatment Not on file documented as of this encounter Visit Diagnoses Not on filedocumented in this encounter
--- OUTSIDE RECORDS SUMMARY | 2024-07-12 16:07 | XMS_ITS | Encounter Summary ---
Author Organization [facility] Address [address] [facility] [address] [place] [address] Phone Care Team Providers Care Repairer Art Objects Name Role Phone Minnie Mcneil MD Primary Care Provider [phone] Reason for Referral * (Routine) - Closed Specialty Diagnoses / Procedures Referred By Krystina jansen Referred To Contact Diagnoses Moderate persistent asthma, unspecified whether complicated Procedures Pulmonary Function Test -[facility] Adult PFT Lab- CAM-8D; Spirometry Cristina Hickey MD Phone: tel: fax: Referral ID Status Reason Start Date Expiration Date Visits Re quested Visits Authorized [id number] Closed 05/04/2019 11/12/2020 1 1 Encounter Details Date Type Department Care Team (Late st Contact Info) Description 05/04/2019 4:00 PM CDT Office Visit [facility] Pulmonary [address] [facility] Advanced Medicine 8th [place] [address] [place] [address] Casie Lowe MD PhD [address] [facility] [address] [place], [place] [id number] Moderate persistent asthma, unspecified whether complicated (Primary Dx) Social History Tobacco Use Types Packs/Day Years Used Date Smoking Tobacco: Never Smokeless Tobacco: Never Comments Unknown Sex and Gender Information Value Date Recorded Sex Assigned at Not on file Legal Sex Female 7:31 AM 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 Childhood asthma. 2. [...] M.D. Attending AM/KCS/mt cc: SAYDA CAMARILLO MD [address] [facility] [address], [place] [address] / ELIOT GUZMAN RN [address] [facility] [address] [place] [address] documented in this encounter Plan of Treatment [...] and %HbO2 is age dependent. However, the [facility] Pulmonary Function Laboratory defines [...] 6:45 AM CDT SEE PDF PFT performed at:->[facility]8DProcedure:->Spirometry Site: [facility], [address] [place] [address] ID: [id number] ??Name: ROYER TANNER Visit Date: 05/02/2020 ??Second ID: [id number] Reviewing Doctor: RAS LAUREN MD Corn Cutter Operator: Mary Mathew RRT Age: 25 ??: 1995 ??Sex: Female ??Race: Height: 63.20 ??Inches ??Weight: 162.00 ??Lbs ??BSA: 1.77 Order IDs: [id number] Requested Test(s): PULMONARY FUNCTION TEST^PFT performed at:->[facility] Adult PFT Lab- [facility]^Procedure:->Spirometry Diagnosis: Asthma Medications: Symbicort 630 Post Test [...] documented as of this encounter Care Teams Repairer Art Objects Relationship Specialty [place] [address] [address] PCP - General Internal Medicine 05/04/19 documented as of this encounter
--- OUTSIDE RECORDS SUMMARY | 2024-07-12 16:07 | XMS_ITS | Encounter Summary ---
Author Organization [facility] Address [address] [facility] [address] [place] [address] Phone Care Team Providers Care Budget Coordinator Name Role Phone Minnie Mcneil MD Primary Care Provider [phone] Reason for Referral * (Routine) - Closed Specialty Diagnoses / Procedures Referred By Krystina jansen Referred To Contact Diagnoses Moderate persistent asthma, unspecified whether complicated Procedures Pulmonary Function Test -[facility] PFT Lab- CAM-8D; Spirometry Sony Hickey MD Phone: tel: fax: Referral ID Status Reason Start Date Expiration Date Visits Re quested Visits Authorized [id number] Closed 05/04/2019 11/12/2020 1 1 Reason for Visit * (Routine) - Closed Specialty Diagnoses / Procedures Referred By Krystina jansen Referred To Contact Diagnoses Moderate persistent asthma, unspecified whether complicated Procedures Pulmonary Function Test -[facility]FT [facility]- CAM-8D; Spirometry Sony Hickey MD Phone: tel: fax: Referral ID Status Reason Start Date Expiration Date Visits Re quested Visits Authorized [id number] Closed 05/04/2019 11/12/2020 1 1 Encounter Details Date Type Department Care Team (Latest Contact Info) Description 05/02/2020 1:14 PM CDT - 05/02/2020 11:59 PM CDT Hospital Encounter [facility] Pulmonary [address] [facility] [address] [place] [address] Moderate persistent asthma, unspecified whether complicated Discharge Disposition: Discharge to home or self care Social History Tobacco Use Types Packs/Day Years Used Date Smoking Tobacco: Never Smokeless Tobacco: Never Comments Unknown Sex and Gender Information Value Date Recorded Sex Assigned at Not on file Legal Sex Female 7:31 AM PASTRY ASSISTANT Gender Identity Female 10/30/2021 8:16 AM CDT [...] significant interval change. Interpreting Attending Physician: Ras Laruen M.D. The attending pulmonary physician certifies that he/she has reviewed and interpreted the graphic and numerical data of this pulmonary function study and agrees with the written final report. ??The lower limit of normal for PO2 and %HbO2 is age dependent. However, the [facility] Pulmonary Function Laboratory defines [...] 6:45 AM CDT SEE PDF PFT performed at:->[facility]ENTERProcedure:->Spirometry Site: [facility], [address] [place] [address] ID: [id number] ??Name: ROYER TANNER Visit Date: 05/02/2020 ??Second ID: [id number] Reviewing Doctor: RAS LAUREN MD Field Research Associate: Mary Mathew RRT Age: 25 ??: 1995 ??Sex: Female ??Race: Height: 63.20 ??Inches ??Weight: 162.00 ??Lbs ??BSA: 1.77 Order IDs: [id number] Requested Test(s): PULMONARY FUNCTION TEST^PFT performed at:->[facility]^Procedure:->Spirometry Diagnosis: Asthma Medications: Symbicort 630 [...] complicated documented in this encounter Care Teams Budget Coordinator Relationship Specialty [place] [address] [address] [address] [place] [address] PCP - General Internal Medicine 05/04/19 documented as of this encounter
--- OUTSIDE RECORDS SUMMARY | 2024-07-12 16:07 | XMS_ITS | Encounter Summary ---
Author Organization [facility] Address [address] [facility] [address] [place] [address] Phone Care Team Providers Care Flight Reservations Manager Name Role Phone Minnie Mcneil MD Primary Care Provider [phone] Reason for Referral * (Routine) - Closed Specialty Diagnoses / Procedures Referred By Krystina jansen Referred To Contact Diagnoses Asthma, unspecified asthma severity, unspecified whether complicated, unspecified whether persistent Procedures Pulmonary Function Test -[facility] Adult PFT Lab- [facility]-8D; Spirometry Casie Lowe MD PhD Phone: tel: fax: Referral ID Status Reason Start Date Expiration Date Visits Re quested Visits Authorized [id number] Closed 05/01/2019 11/09/2020 1 1 Reason for Visit * Diagnostic Lab (Routine) - Closed Specialty Diagnoses / Procedures Referred By Contsonal t Referred To Contact Pulmonology Diagnoses SPI Procedures GENERIC PFT LAB Sourav Max Jr., MD Phone: tel: fax: [facility] Pulmonary [address] [facility] [address] [place] [address] Phone: tel: fax: Referral ID Status Reason Start Date Expiration Date Visits Re quested Visits Authorized [id number] Closed 05/04/2019 07/07/2019 99 99 Encounter Details Date Type Department Care Team (Latest Contact Info) Description 05/04/2019 3:02 PM CDT - 05/04/2019 11:59 PM CDT Hospital Encounter [facility] Pulmonary [address] [facility] [address] [place] [address] Asthma, unspecified asthma severity, unspecified whether complicated, unspecified whether persistent Discharge Disposition: Discharge to home or self care Social History Tobacco Use Types Packs/Day Years Used Date Smoking Tobacco: Never Smokeless Tobacco: Never Comments Unknown Sex and Gender Information Value Date Recorded Sex Assigned at Not on file 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 Sex 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 Gender Identity Female 10/30/2021 8:16 AM CDT [...] FVC PRED 3.73 0.05 - 9.99 Liters [facility] FVC PRE 4.38 0 - 12 Liters [facility] FVC %PRE PRED 117 0 - 300 % [facility] FEV1 PRED 3.24 0.05 - 9.99 Liters [facility] FEV1 PRE 3.62 0 - 12 Liters [facility] FEV1 %PRE PRED 112 0 - 300 % [facility] FEV1/FVC PRED 87 1 - 99 % [facility] FEV1/FVC PRE 83 0 - 12 % [facility] KQP27-31% PRED 3.81 0 - 12 L/sec [facility] XIR76-56% PRE 3.61 0 - 12 L/sec [facility] SDK89-03% %PRE PRED 95 0 - 300 % [facility] FEF75% PRED 1.83 0 - 300 L/sec [facility] FEF75% PRE 1.75 0 - 12 L/sec [facility] FEF75% %PRE PRED 96 % [facility] PEF PRED 6.55 0 - 18 L/sec [facility] PEF PRE 7.96 0 - 18 L/sec [facility] PEF %PRE PRED 121 0 - 300 % [facility] PIF PRE 1.72 0 - 18 L/sec [facility] VC PRED 3.57 0.05 - 9.99 Liters [facility] TLC PRED 4.96 0.05 - 11.99 Liters [facility] RV PRED 1.21 0.05 - 9.99 Liters [facility] RV/TLC PRED 24 0 - 300 % [facility] FRC N2 PRED 2.28 0.05 - 9.99 Liters [facility] FRC PL PRED 2.69 0.05 - 9.99 Liters [facility] ERV PRED 1.26 0.05 - 9.99 Liters [facility] DLCO PRED 29.5 0.05 - 99.99 mL/mmHg/min [facility] DL ADJ PRED 29.5 1 - 2 mL/mmHg/min [facility] DLCO/VA PRED 6.00 mL/mHg/min/ L [facility] DL/VA ADJ PRED 4.75 mL/mHg/min/ L [facility] RAW PRED 1.43 cmH2O/L/sec [facility] GAW PRED 0.644 L/sec/cmH2O [facility] SRAW PRED 3.84 cmH2O/L/s/L [facility] SGAW PRED 0.261 L/s/cmH2O/L [facility] Anatomical Region Laterality Modality PFT 05/04/2019 3:08 PM CDT Narrative 05/06/2019 5:50 PM CDT SEE PDF us Casie Lowe MD PhD PFT ORDERABLES Final Resul t documented in this encounter Visit Diagnoses Diagnosis Asthma, unspecified asthma severity, unspecified whether complicated, unspecified whether persistent documented in this encounter Care Teams Flight Reservations Manager Relationship Specialty [place] [address] [place] [address] PCP - General Internal Medicine 05/04/19 documented as of this encounter
--- OUTSIDE RECORDS SUMMARY | 2024-07-12 16:07 | XMS_ITS | Encounter Summary ---
Author Organization [facility] Address [address] [place] [address] Phone Care Team Providers Care Ironer Or Presser Name Role Phone Zunilda Coles MD Primary [...] Expiration Date Visits Re quested Visits Authorized [id number] Closed 11/15/2017 11/15/2018 99 99 Encounter Details Date Type Department Care Team (Late st Contact Info) Description 11/15/2017 Orders Only [facility] Pulmonary [address] [facility] [address] [place] [address] Dann Vega MD [address] [place] [address] Moderate persistent asthma without complication (Primary Dx) Social History Tobacco Use Types Packs/Day Years Used Date Smoking Tobacco: Never Comments Unknown Sex and Gender Information Value Date Recorded Sex Assigned at Not on file 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 Gender Identity Female 10/30/2021 8:16 AM CDT Sexual Orientation Not on file documented as of this encounter Plan of Treatment Not on file documented as of this encounter Results * Pulmonary Function Test -[facility]FT [facility]- CAM-8D; Spirometry (04/14/2018 3:36 PM CDT) FVC PRED 3.73 0.05 - 9.99 Liters [facility] FVC PRE 4.50 0 - 12 Liters [facility] FVC %PRE PRED 121 0 - 300 % [facility] FEV1 PRED 3.25 0.05 - 9.99 Liters [facility] FEV1 PRE 3.81 0 - 12 Liters [facility] FEV1 %PRE PRED 117 0 - 300 % [facility] FEV1/FVC PRED 88 1 - 99 % [facility] FEV1/FVC PRE 85 0 - 12 % [facility] SQQ17-48% PRED 3.84 0 - 12 L/sec [facility] AVK21-42% PRE 4.02 0 - 12 L/sec [facility] UVX52-37% %PRE PRED 105 0 - 300 % [facility] FEF75% PRED 1.87 0 - 300 L/sec [facility] FEF75% PRE 2.30 0 - 12 L/sec [facility] FEF75% %PRE PRED 123 % [facility] PEF PRED 6.58 0 - 18 L/sec [facility] PEF PRE 8.94 0 - 18 L/sec [facility] PEF %PRE PRED 136 0 - 300 % [facility] PIF PRE 3.15 0 - 18 L/sec [facility] VC PRED 3.58 0.05 - 9.99 Liters [facility] TLC PRED 4.96 0.05 - 11.99 Liters [facility] RV PRED 1.19 0.05 - 9.99 Liters [facility] RV/TLC PRED 24 0 - 300 % [facility] FRC N2 PRED 2.28 0.05 - 9.99 Liters [facility] FRC PL PRED 2.68 0.05 - 9.99 Liters [facility] ERV PRED 1.27 0.05 - 9.99 Liters [facility] DLCO PRED 29.7 0.05 - 99.99 mL/mmHg/min [facility] DL ADJ PRED 29.7 1 - 2 mL/mmHg/min [facility] DLCO/VA PRED 6.03 mL/mHg/min/ L [facility] DL/VA ADJ PRED 4.85 mL/mHg/min/ L [facility] RAW PRED 1.43 cmH2O/L/sec [facility] GAW PRED 0.644 L/sec/cmH2O [facility] SRAW PRED 3.84 cmH2O/L/s/L [facility] SGAW PRED 0.261 L/s/cmH2O/L [facility] Anatomical Region Laterality Modality PFT 04/14/2018 3:31 PM CDT Narrative 04/17/2018 1:16 PM CDT See pdf us Dann Vega MD PFT ORDERABLES Final Result documented in this encounter Visit Diagnoses Diagnosis Moderate persistent asthma without complication- Primary Moderate persistent asthma without complication documented in this encounter Care Teams Ironer Or Presser Relationship Specialty Start Date End Date Zunilda Coles MD [address] [place] [address] PCP - General 06/03/17 05/03/19 documented as of this encounter
--- OUTSIDE RECORDS SUMMARY | 2024-07-12 16:07 | XMS_ITS | Encounter Summary ---
Author Organization [facility] Address [address] [facility] [address] [place] [address] Phone Care Team Providers Care Car Groomer Name Role Phone Minnie Mcneil MD Primary Care Provider [phone] Reason for Referral * (Routine) - Closed Specialty Diagnoses / Procedures Referred By Krystina jansen Referred To Contact Diagnoses Moderate persistent asthma, unspecified whether complicated Procedures Pulmonary Function Test -[facility] Adult PFT Lab- CAM-8D; Spirometry Casie Lowe MD PhD [address] [facility] [address] [place] [address] Phone: tel: fax: Referral ID Status Reason Start Date Expiration Date Visits Re quested Visits Authorized [id number] Closed 03/02/2021 04/01/2022 1 1 Encounter Details Date Type Department Care Team (Late st Contact Info) Description 03/02/2021 Orders Only [facility] Pulmonary [address] [facility] Advanced Medicine 8th [place] [address] [place] [address] Casie Lowe MD PhD [address] [facility] [address] [place] [address] Moderate persistent asthma, unspecified whether complicated (Primary Dx) Social History Tobacco Use Types Packs/Day Years Used Date Smoking Tobacco: Never Smokeless Tobacco: Never Comments Unknown Sex and Gender Information Value Date Recorded Sex Assigned at Not on file 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 Gender Identity Female 10/30/2021 8:16 AM CDT Sexual Orientation Not on file documented as of this encounter Plan of Treatment Not on file documented as of this encounter Results * Pulmonary Function Test - (10/30/2021 1:46 PM CDT) FVC PRE 4.39 L [facility] FVC %PRE PRED 118 % [facility] FEV1 PRE 3.58 L [facility] FEV1 %PRE PRED 111 % [facility] FEV1/FVC PRE 81.5 % [facility] Anatomical Region Laterality Modality PFT 10/30/2021 1:39 PM CDT Narrative 11/02/2021 7:28 AM CDT SEE PDF PFT performed at:->[facility] Adult PFT Lab- CAM-8D Procedure:->Spirometry us Casie Lowe MD PhD PFT ORDERABLES Final Resul t documented in this encounter Visit Diagnoses Diagnosis Moderate persistent asthma, unspecified whether complicated- Primary Moderate persistent asthma, unspecified whether complicated documented in this encounter Care Teams Car Groomer Relationship Specialty [place] [address] [address] PCP - General Internal Medicine 05/04/19 documented as of this encounter
--- OUTSIDE RECORDS SUMMARY | 2024-07-12 16:07 | XMS_ITS | Encounter Summary ---
Author Organization [facility] Address [address] [place] [address] Phone Care Team Providers Care Cultured Marble Products Maker Name Role Phone Minnie Mcneil MD Primary Care Provider Encounter Details Date Type Department Care Team (Late st Contact Info) Description 05/02/2020 Orders Only [facility] Pulmonary [address] [facility] Advanced Medicine 8th [place] [address] [place] [address] Casie Lowe MD PhD [address] [facility] [address] [place] [address] Moderate persistent asthma, unspecified whether complicated (Primary Dx) Social History Tobacco Use Types Packs/Day Years Used Date Smoking Tobacco: Never Smokeless Tobacco: Never Comments Unknown Sex and Gender Information Value Date Recorded Sex Assigned at Not on file 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
--- OUTSIDE RECORDS SUMMARY | 2024-07-12 16:07 | XMS_ITS | Encounter Summary ---
Author Organization [facility] Address [address] [facility] [address] [place] [address] Phone Care Team Providers Care Rescue Instructor Name Role Phone Minnie Mcneil MD Primary Care Provider [phone] Reason for Referral * (Routine) - Closed Specialty Diagnoses / Procedures Referred By Krystina jansen Referred To Contact Diagnoses Moderate persistent asthma, unspecified whether complicated Procedures Pulmonary Function Test -[facility] Adult PFT [facility]- CAM-8D; Spirometry Casie Lowe MD PhD [address] [place] [address] Phone: tel: fax: Referral ID Status Reason Start Date Expiration Date Visits Re quested Visits Authorized [id number] Closed 03/02/2021 04/01/2022 1 1 Reason for Visit * (Routine) - Closed Specialty Diagnoses / Procedures Referred By Krystina t Referred To Contact Diagnoses Moderate persistent asthma, unspecified whether complicated Procedures Pulmonary Function Test -[facility] Adult PFT [facility]- CAM-8D; Spirometry Casie Lowe MD PhD [address] [address] Phone: tel: fax: Referral ID Status Reason Start Date Expiration Date Visits Re quested Visits Authorized [id number] Closed 03/02/2021 04/01/2022 1 1 Encounter Details Date Type Department Care Team (Latest Contact Info) Description 10/30/2021 1:35 PM CDT - 10/30/2021 11:59 PM CDT Hospital Encounter [facility] Pulmonary [address] [facility] [address] [place] [address] Moderate persistent asthma, unspecified whether complicated Discharge Disposition: Discharge to home or self care Social History Tobacco Use Types Packs/Day Years Used Date Smoking Tobacco: Never Smokeless Tobacco: Never Comments Unknown Sex and Gender Information Value Date Recorded Sex Assigned at Not on file 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
--- OUTSIDE RECORDS SUMMARY | 2024-07-12 16:07 | XMS_ITS | Encounter Summary ---
Author Organization [facility] Healthcare Address [address] [place] [address] Care Team Providers Care Distance Education Faculty Liaison Name Role Phone Zunilda Coles MD Primary Care Provider + Encounter Details Date Type Department Care Team (Latest Contact Info) Description 05/21/2017 10:32 AM ARCHITECTURAL ADMINISTRATIVE ASSISTANT - 05/21/2017 11:59 PM ARCHITECTURAL ADMINISTRATIVE ASSISTANT Hospital Encounter [facility] OP INTERIM [phone] Marixa Lim MD [address] [facility] [address] [place], [place] [id number] Discharge Disposition: Discharge to home or self care Social History Tobacco Use Types Packs/Day Years Used Date Smoking Tobacco: Never Assessed Comments Unknown Sex and Gender Information Value Date Recorded Sex Assigned at Not on file Legal Sex Female 7:31 AM ARCHITECTURAL ADMINISTRATIVE ASSISTANT Gender Identity Female 10/30/2021 8:16 AM [...] LATERAL 2 VIEWS Routine 05/21/2017 4:51 PM ARCHITECTURAL ADMINISTRATIVE ASSISTANT ALLERGIC BRONCHOPULMONARY ASPERGILLOSIS CASCADE Routine Gen Lab 05/21/2017 10:41 AM ARCHITECTURAL ADMINISTRATIVE ASSISTANT DIFFERENTIAL AUTO Routine Gen Lab 05/21/2017 10:41 AM ARCHITECTURAL ADMINISTRATIVE ASSISTANT CBC WITH AUTO DIFFERENTIAL Routine Gen Lab 05/21/2017 10:41 AM ARCHITECTURAL ADMINISTRATIVE ASSISTANT VITAMIN D 25 HYDROXY Routine Gen Lab 05/21/2017 10:41 AM ARCHITECTURAL ADMINISTRATIVE ASSISTANT TSH Routine Gen Lab 05/21/2017 10:41 AM ARCHITECTURAL ADMINISTRATIVE ASSISTANT COMPREHENSIVE METABOLIC PANEL Routine Gen Lab 05/21/2017 10:41 AM ARCHITECTURAL ADMINISTRATIVE ASSISTANT DISCHARGE LABORATORY CUMULATIVE REPORT 05/21/2017 12:00 AM ARCHITECTURAL ADMINISTRATIVE ASSISTANT documented in this encounter Results * XR Chest Pa Lateral 2 Views (05/21/2017 4:51 PM ARCHITECTURAL ADMINISTRATIVE ASSISTANT) Anatomical Region Laterality Modality Body, Chest N/A Radiographic Marcela ging 05/21/2017 4:51 PM ARCHITECTURAL ADMINISTRATIVE ASSISTANT Narrative 05/21/2017 5:16 PM ARCHITECTURAL ADMINISTRATIVE ASSISTANT ISIAH CLAYTON M.D. BLAS WEI M.D. FINAL REPORT The radiology attending physician has personally reviewed this study, and has reviewed and/or edited this written report and agrees with it. ACC# ??Date Time ??Exam [id number] May 21, 2017 10:51:00 32014 Chest 2 views Frontl ??and ??Lat EXAMINATION: [...] Fax: ?? Attending Fax: ?? Attending ID: ??[id number] Requesting ID: ??[id number] Report To 1 ID: ??[id number] ? Report To 1 Name: ??, ?? Report To 1 FAX: ?? NextGen Order #: ?? Procedure Note Miscellaneous, Not In File - 05/21/2017 Jennifer SCHWARTZ M.D. FINAL REPORT The radiology attending physician has personally reviewed this study, and has reviewed and/or edited this written report and agrees with it. ACC# Date Time Exam [id number] May 21, 2017 10:51:00 [id number] Chest 2 views Frontl and Lat EXAMINATION: 2 view chest radiograph IMPRESSION: No comparison is available. Lungs are clear. There is no pneumothorax, pleural effusion, pulmonary edema or consolidation. Cardiomediastinal silhouette is stable. Electronically signed by: Isiah Clayton M.D. Requested By: MARIXA LIM M.D. [...] LIM Requesting Fax: Attending Fax: Attending ID: [id number] Requesting ID: [id number] Report To 1 ID: [id number] Report To 1 Name: , Report To 1 FAX: NextGen Order #: us Marixa Lim MD IMG XR PROCEDURES Edited Result - Final * (ABNORMAL) Allergic bronchopulmonary aspergillosis cascade (05/21/2017 10:41 AM ARCHITECTURAL ADMINISTRATIVE ASSISTANT) IgE 384.3(H) 1.0 - 100.0 IUnits/mL [facility] Blood specimen (specimen) 05/21/2017 10:41 AM ARCHITECTURAL ADMINISTRATIVE ASSISTANT 05/21/2017 1:18 PM ARCHITECTURAL ADMINISTRATIVE ASSISTANT Comment:This order was corre cted from Aspergillus IgG and IgM to Allergic Bronchopulmonary Aspergillosis [place] on 09/10/19. Narrative [facility] - 05/21/2017 2:20 PM ARCHITECTURAL ADMINISTRATIVE ASSISTANT This order was corrected from Aspergillus IgG and IgM to Allergic Bronchopulmonary Aspergillosis [place] on 09/10/19. 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 us Marixa Lim MD LAB BLOOD ORDERABLES Final Resul t Performing Organization Address City/[facility] Co de Phone Number [facility] Department [place] [address] * (ABNORMAL) Vitamin D 25 hydroxy (05/21/2017 10:41 AM ARCHITECTURAL ADMINISTRATIVE ASSISTANT) [facility] Vitamin D 25-OH 28.0(L) 30.0 - 100.0 ng/mL [facility] Blood specimen (specimen) 05/21/2017 10:41 AM ARCHITECTURAL ADMINISTRATIVE ASSISTANT 05/21/2017 10:56 AM ARCHITECTURAL ADMINISTRATIVE ASSISTANT us Marixa Lim MD LAB BLOOD ORDERABLES Final Resul t Performing Organization Address City/[facility]/ZIP Co de Phone Number [facility] Department [place] [address] * Comprehensive metabolic panel (05/21/2017 10:41 AM ARCHITECTURAL ADMINISTRATIVE ASSISTANT) [facility] Sodium 139 135 - 145 mmol/L [facility] Potassium, pl 3.9 3.3 - 4.9 mmol/L [facility] CO2 31 22 - 32 mmol/L [facility] BUN 13 8 - 25 mg/dL [facility] Glucose 80 70 - 199 mg/dL [facility] Creatinine 0.83 0.60 - 1.10 mg/dL [facility] Calcium 9.5 8.5 - 10.3 mg/dL [facility] Chloride 101 97 - 110 mmol/L [facility] Albumin 5.0 3.5 - 5.0 g/dL [facility] AST 26 10 - 45 Units/L [facility] ALT 32 7 - 45 Units/L [facility] Alk phos 66 40 - 130 Units/L [facility] Bilirubin, total 0.4 0.1 - 1.2 mg/dL [facility] Protein, pl 8.0 6.5 - 8.5 g/dL [facility] Anion gap 7 2 - 15 mmol/L [facility] Blood specimen (specimen) 05/21/2017 10:41 AM ARCHITECTURAL ADMINISTRATIVE ASSISTANT 05/21/2017 10:56 AM ARCHITECTURAL ADMINISTRATIVE ASSISTANT Marixa Lim MD LAB BLOOD ORDERABLES Final Resul t Performing Organization Address [facility] de Phone Number [facility] Department [place] [employer] [place] [address] * TSH (05/21/2017 10:41 AM ARCHITECTURAL ADMINISTRATIVE ASSISTANT) Pathologist [facility] Thyroid Stimulating Hormone 3.36 0.30 - 4.20 mcIUnit/mL [facility] Comment: Interpretive Data Hyperthyroid: ??<0.1 mcIUnit/mL Hypothyroid: ??>12.0 mcIUnit/mL Current interpretive data was last revised on 00. Blood specimen (specimen) 05/21/2017 10:41 AM ARCHITECTURAL ADMINISTRATIVE ASSISTANT 05/21/2017 10:56 AM ARCHITECTURAL ADMINISTRATIVE ASSISTANT us Marixa Lim MD LAB BLOOD ORDERABLES Final Resul t Performing Organization Address [facility] de Phone Number [facility] [place] [employer] [place] [address] * (ABNORMAL) Differential, auto (05/21/2017 10:41 AM ARCHITECTURAL ADMINISTRATIVE ASSISTANT) Pathologist [facility] Neutrophil pct 57.6 % [facility] Imm gran pct 0.3 % [facility] Lymphocyte pct 25.1 % [facility] Monocyte pct 7.6 % [facility] Eosinophil pct 8.5 % [facility] Basophil pct 0.9 % [facility] Neutrophil abs 3.93 1.70 - 6.50 K/cumm [facility] Imm gran abs 0.02 0.00 - 0.10 K/cumm [facility] Lymphocyte abs 1.71 0.80 - 3.30 K/cumm [facility] Monocyte abs 0.52 0.20 - 0.80 K/cumm [facility] Eosinophil abs 0.58(H) 0.00 - 0.50 K/cumm [facility] Basophil abs 0.06 0.00 - 0.10 K/cumm [facility] Blood specimen (specimen) 05/21/2017 10:41 AM ARCHITECTURAL ADMINISTRATIVE ASSISTANT 05/21/2017 10:56 AM ARCHITECTURAL ADMINISTRATIVE ASSISTANT us Marixa Lim MD LAB BLOOD ORDERABLES Final Resul t [facility] Department [place] [address] * CBC with auto differential (05/21/2017 10:41 AM ARCHITECTURAL ADMINISTRATIVE ASSISTANT) WBC 6.82 3.80 - 9.90 K/cumm [facility] RBC 5.06 3.90 - 5.20 M/cumm [facility] Hgb 14.8 11.9 - 15.5 g/dL [facility] Hct 44.5 35.6 - 45.5 % [facility] MCV 87.9 81.3 - 96.4 fL [facility] MCH 29.2 27.1 - 33.3 pg [facility] MCHC 33.3 32.3 - 35.7 g/dL [facility] RDW CV 12.1 11.1 - 14.9 % [facility] RDW SD 39.3 35.7 - 48.1 fL [facility] Plt 210 150 - 400 K/cumm [facility] MPV 10.1 9.1 - 12.3 fL [facility] NRBC 0.0 0.0 - 0.2 % [facility] NRBC abs 0.00 0.00 - 0.01 K/cumm [facility] Blood specimen (specimen) 05/21/2017 10:41 AM ARCHITECTURAL ADMINISTRATIVE ASSISTANT 05/21/2017 10:56 AM ARCHITECTURAL ADMINISTRATIVE ASSISTANT us Marixa Lim MD LAB BLOOD ORDERABLES Final Resul t [facility] Department [place] [address] * DISCHARGE LABORATORY CUMULATIVE REPORT (05/21/2017 12:00 AM ARCHITECTURAL ADMINISTRATIVE ASSISTANT) Narrative 05/21/2017 12:00 AM ARCHITECTURAL ADMINISTRATIVE ASSISTANT Ordered by an unspecified provider. Frank Provider LAB BLOOD ORDERABLES Meena l Result documented in this encounter Visit Diagnoses Not on filedocumented in this encounter Care Teams Distance Education Faculty Liaison Relationship Specialty Start Date End Date Zunilda Coles MD [address] [place] [address] PCP - General 05/21/17 05/21/17 documented as of this encounter
--- OUTSIDE RECORDS SUMMARY | 2024-07-12 16:07 | XMS_ITS | Encounter Summary ---
Author Organization [facility] Address [address] [place] [address] Phone Care Team Providers Care Home Health Registered Nurse Name Role Phone Unknown, Notinfile Primary Care Provider Unavail able Zunilda Coles MD Primary Care Provider + Minnie Mcneil MD Primary Care Provider [phone] Tabby Hopkins RN Unavailable Unavailabl e Encounter Details Date Type Department Care Team (Latest Contact Info) Description 05/22/2017 Orders Only [facility] CONVERSION Scanning, Provider Social History Tobacco Use Types Packs/Day Years Used Date Smoking Tobacco: Never Assessed Comments Unknown Sex and Gender Information Value Date Recorded Sex Assigned at Not on file Legal Sex Female 7:31 AM RECORDS MANAGEMENT SPECIALIST Gender Identity Female 10/30/2021 8:16 AM CDT Sexual Orientation Not on file documented as of this encounter Plan of Treatment Not on file documented as of this encounter Procedures Procedure Name Priority Date/Time Associated Diagnosis Comments PULMONARY FUNCTION TEST (PFT) 05/22/2017 12:07 PM RECORDS MANAGEMENT SPECIALIST documented in this encounter Results * PULMONARY FUNCTION TEST (PFT) (05/22/2017 12:07 PM RECORDS MANAGEMENT SPECIALIST) Anatomical Region Laterality Modality PFT us Provider Scanning PFT ORDERABLES Final Result documented in this encounter Visit Diagnoses Not on filedocumented in this encounter Care Teams Home Health Registered Nurse Relationship Specialty Start Date End Date Unknown, Notinfile PCP - General 05/22/17 06/02/17 Zunilda Coles MD [address] [place] [address] PCP - General 06/03/17 05/03/19 [place] [address] [facility] [address] [address] PCP - General Internal Medicine 05/04/19 Tabby Hopkins, RN Registered Nurse Pulmonary Disease 04/29/23 documented as of this encounter
--- OUTSIDE RECORDS SUMMARY | 2024-07-12 16:07 | XMS_ITS | Encounter Summary ---
Author Organization [facility] of [facility] Address [address] [place] [address] Phone Care Team Providers Care Planning Intern Name Role Phone Minnie Mcneil MD Primary Care Provider [phone] Encounter Details Date Type Department Care Team (Late st Contact Info) Description 05/02/2020 2:00 PM CDT Office Visit [facility] Pulmonary [address] [facility] Advanced Medicine 8th [place] [address] [place] [address] Casie Lowe MD PhD [address] [facility] [address] [place] [address] Moderate persistent asthma, unspecified whether complicated (Primary Dx) Social History Tobacco Use Types Packs/Day Years Used Date Smoking Tobacco: Never Smokeless Tobacco: Never Comments Unknown Sex and Gender Information Value Date Recorded Sex Assigned at Not on file 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 Regarding her vocal cord dysfunction, she is [...] 11/03/2021 added in this encounter Care Teams Planning Intern Relationship Specialty [place] [address] [address] PCP - General Internal Medicine 05/04/19 documented as of this encounter
--- OUTSIDE RECORDS SUMMARY | 2024-07-12 16:07 | XMS_ITS | Encounter Summary ---
Author Organization [facility] Address [address] [facility] [address] [place] [address] Phone Care Team Providers Care Director Of Casino Marketing Name Role Phone Minnie Mcneil MD Primary Care Provider Reason for Referral * Pulmonology (Routine) - Closed Specialty Diagnoses / Procedures Referred By Krystina jansen Referred To Contact Pulmonary Disease Diagnoses Moderate persistent asthma, unspecified whether complicated Procedures Pulmonary Function Test -[facility] U Adult PFT Lab- CAM-8D; Spirometry Casie Lowe MD PhD [address] [facility] [address] [place] [address] Phone: tel: fax: Referral ID Status Reason Start Date Expiration Date Visits Re quested Visits Authorized [id number] Closed 10/30/2021 1 1 Encounter Details Date Type Department Care Team (Late st Contact Info) Description 10/30/2021 2:00 PM CDT Office Visit [facility] Pulmonary [facility] Medicine 8th [place] [address] [place] [address] Casie Lowe MD PhD [address] [facility] [address] [place] [address] Moderate persistent asthma, unspecified whether complicated (Primary Dx) Social History Tobacco Use Types Packs/Day Years Used Date Smoking Tobacco: Never Smokeless Tobacco: Never Comments Unknown Sex and Gender Information Value Date Recorded Sex Assigned at Not on file 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 However, the [facility] Pulmonary Function Laboratory defines hypoxemia as a PO2 <55 or a %HbO2 <89. Narrative 04/29/2023 12:50 PM CDT PFT performed at:->[facility] Adult PFT Lab- CAM-8D Procedure:->Spirometry Pulmonary [...] mouth added in this encounter Care Teams Director Of Casino Marketing Relationship Specialty [place] [address] [address] [address] PCP - General Internal Medicine 05/04/19 documented as of this encounter
--- OUTSIDE RECORDS SUMMARY | 2024-07-12 16:07 | XMS_ITS | Encounter Summary ---
Author Organization [facility] Address [address] [facility] [address] [place] [address] Phone Care Team Providers Care Ham Boner Name Role Phone Zunilda Coles MD Primary Care Provider + Reason for Referral * (Routine) - Closed Specialty Diagnoses / Procedures Referred By Krystina jansen Referred To Contact Diagnoses Asthma, unspecified asthma severity, unspecified whether complicated, unspecified whether persistent Procedures Pulmonary Function Test -[facility] U Adult PFT Lab- CAM-8D; Spirometry Casie Lowe MD PhD Phone: tel: fax: Referral ID Status Reason Start Date Expiration Date Visits Re quested Visits Authorized [id number] Closed 05/01/2019 11/09/2020 1 1 Encounter Details Date Type Department Care Team (Late st Contact Info) Description 05/01/2019 Orders Only [facility] Pulmonary [address] [facility] Advanced Medicine 8th [place] [address] [place] [address] Casie Lowe MD PhD [address] [facility] [address] [place] [address] Asthma, unspecified asthma severity, unspecified whether complicated, unspecified whether persistent (Primary Dx) Social History Tobacco Use Types Packs/Day Years Used Date Smoking Tobacco: Never Smokeless Tobacco: Never Comments Unknown Sex and Gender Information Value Date Recorded Sex Assigned at Not on file 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 Gender Identity Female 10/30/2021 8:16 AM CDT Sexual Orientation Not on file documented as of this encounter Plan of Treatment Not on file documented as of this encounter Results * Pulmonary Function Test - (05/04/2019 3:12 PM CDT) FVC PRED 3.73 0.05 - 9.99 Liters [facility] FVC PRE 4.38 0 - 12 Liters [facility] FVC %PRE PRED 117 0 - 300 % [facility] FEV1 PRED 3.24 0.05 - 9.99 Liters [facility] FEV1 PRE 3.62 0 - 12 Liters [facility] FEV1 %PRE PRED 112 0 - 300 % [facility] FEV1/FVC PRED 87 1 - 99 % [facility] FEV1/FVC PRE 83 0 - 12 % [facility] PAT15-87% PRED 3.81 0 - 12 L/sec [facility] XZA28-20% PRE 3.61 0 - 12 L/sec [facility] NID11-71% %PRE PRED 95 0 - 300 % [facility] FEF75% PRED 1.83 0 - 300 L/sec [facility] FEF75% PRE 1.75 0 - 12 L/sec [facility] FEF75% %PRE PRED 96 % [facility] PEF PRED 6.55 0 - 18 L/sec [facility] PEF PRE 7.96 0 - 18 L/sec [facility] PEF %PRE PRED 121 0 - 300 % [facility] PIF PRE 1.72 0 - 18 L/sec [facility] VC PRED 3.57 0.05 - 9.99 Liters [facility] TLC PRED 4.96 0.05 - 11.99 Liters [facility] RV PRED 1.21 0.05 - 9.99 Liters [facility] RV/TLC PRED 24 0 - 300 % [facility] FRC N2 PRED 2.28 0.05 - 9.99 Liters [facility] FRC PL PRED 2.69 0.05 - 9.99 Liters [facility] ERV PRED 1.26 0.05 - 9.99 Liters [facility] DLCO PRED 29.5 0.05 - 99.99 mL/mmHg/min [facility] DL ADJ PRED 29.5 1 - 2 mL/mmHg/min [facility] DLCO/VA PRED 6.00 mL/mHg/min/ L [facility] DL/VA ADJ PRED 4.75 mL/mHg/min/ L [facility] RAW PRED 1.43 cmH2O/L/sec [facility] GAW PRED 0.644 L/sec/cmH2O [facility] SRAW PRED 3.84 cmH2O/L/s/L [facility] SGAW PRED 0.261 L/s/cmH2O/L [facility] Anatomical Region Laterality Modality PFT 05/04/2019 3:08 PM CDT Narrative 05/06/2019 5:50 PM CDT SEE PDF us Casie Lowe MD PhD PFT ORDERABLES Final Resul t documented in this encounter Visit Diagnoses Diagnosis Asthma, unspecified asthma severity, unspecified whether complicated, unspecified whether persistent- Primary Asthma, unspecified asthma severity, unspecified whether complicated, unspecified whether persistent documented in this encounter Care Teams Ham Boner Relationship Specialty Start Date End Date Zunilda Coles MD [address] [place] [address] PCP - General 06/03/17 05/03/19 documented as of this encounter
--- OUTSIDE RECORDS SUMMARY | 2024-07-12 16:07 | XMS_ITS | Clinical Summary ---
Author Organization [facility] Address [address] [place] [address] Care Team Providers Care Human Resources Professional Name Role Phone Minnie Mcneil MD Primary Care Provider Tabby Hopkins RN Unavailable Unavailabl e Allergies [...] symbicort. Called in refill of Symbicort to [facility] in [facility] as refill had not gone through. 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
--- OUTSIDE RECORDS SUMMARY | 2024-07-12 16:07 | XMS_ITS | Referral Summary ---
Author Organization [facility] Address [address] [place] [address] Care Team Providers Care Solid Waste Truck Driver Name Role Phone Minnie Mcneil MD Primary Care Provider [phone] Tabby Hopkins RN Unavailable Unavailabl e Allergies [...] symbicort. Called in refill of Symbicort to [facility] in [facility] as refill had not gone through. 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
--- OUTSIDE RECORDS SUMMARY | 2024-07-12 16:07 | XMS_ITS | Encounter Summary ---
Author Organization [facility] Address [address] [facility] [address] [place] [address] Phone Care Team Providers Care Delinquent Tax Collector Name Role Phone Zunilda Colse MD Primary Care Provider + Reason for Referral * Diagnostic Lab (Routine) - Closed Specialty Diagnoses / Procedures Referred By Contac t Referred To Contact Pulmonology Diagnoses Moderate persistent asthma without complication Procedures Pulmonary Function Test -[facility] PFT [facility]- CAM-8D; Spirometry Dann Vega MD Phone: tel: fax: Referral ID Status Reason Start Date Expiration Date Visits Re quested Visits Authorized [id number] Closed 11/15/2017 11/15/2018 99 [phone] Reason for Visit * Diagnostic Lab (Routine) - Closed Specialty Diagnoses / Procedures Referred By Contac t Referred To Contact Pulmonology Diagnoses Moderate persistent asthma without complication Procedures Pulmonary Function Test -[facility] PFT [facility]- CAM-8D; Spirometry Dann Vega MD Phone: tel: fax: Referral ID Status Reason Start Date Expiration Date Visits Re quested Visits Authorized [id number] Closed 11/15/2017 11/15/2018 99 99 Encounter Details Date Type Department Care Team (Latest Contact Info) Description 04/14/2018 3:00 PM CDT - 04/14/2018 11:59 PM CDT Hospital Encounter [facility] Pulmonary [address] [place] [id number] Moderate persistent asthma without complication Discharge Disposition: Discharge to home or self care Social History Tobacco Use Types Packs/Day Years Used Date Smoking Tobacco: Never Smokeless Tobacco: Never Comments Unknown Sex and Gender Information Value Date Recorded Sex Assigned at Not on file 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 Gender Identity Female 10/30/2021 8:16 AM [...] PRED 3.73 0.05 - 9.99 Liters [facility] FVC PRE 4.50 0 - 12 Liters [facility] FVC %PRE PRED 121 0 - 300 % [facility] FEV1 PRED 3.25 0.05 - 9.99 Liters [facility] FEV1 PRE 3.81 0 - 12 Liters [facility] FEV1 %PRE PRED 117 0 - 300 % [facility] FEV1/FVC PRED 88 1 - 99 % [facility] FEV1/FVC PRE 85 0 - 12 % [facility] BMM98-56% PRED 3.84 0 - 12 L/sec [facility] XTF03-93% PRE 4.02 0 - 12 L/sec [facility] RXC02-24% %PRE PRED 105 0 - 300 % [facility] FEF75% PRED 1.87 0 - 300 L/sec [facility] FEF75% PRE 2.30 0 - 12 L/sec [facility] FEF75% %PRE PRED 123 % [facility] PEF PRED 6.58 0 - 18 L/sec [facility] PEF PRE 8.94 0 - 18 L/sec [facility] PEF %PRE PRED 136 0 - 300 % [facility] PIF PRE 3.15 0 - 18 L/sec [facility] VC PRED 3.58 0.05 - 9.99 Liters [facility] TLC PRED 4.96 0.05 - 11.99 Liters [facility] RV PRED 1.19 0.05 - 9.99 Liters [facility] RV/TLC PRED 24 0 - 300 % [facility] FRC N2 PRED 2.28 0.05 - 9.99 Liters [facility] FRC PL PRED 2.68 0.05 - 9.99 Liters [facility] ERV PRED 1.27 0.05 - 9.99 Liters [facility] DLCO PRED 29.7 0.05 - 99.99 mL/mmHg/min [facility] DL ADJ PRED 29.7 1 - 2 mL/mmHg/min [facility] DLCO/VA PRED 6.03 mL/mHg/min/ L [facility] DL/VA ADJ PRED 4.85 mL/mHg/min/ L [facility] RAW PRED 1.43 cmH2O/L/sec [facility] GAW PRED 0.644 L/sec/cmH2O [facility] SRAW PRED 3.84 cmH2O/L/s/L [facility] SGAW PRED 0.261 L/s/cmH2O/L [facility] Anatomical Region Laterality Modality PFT 04/14/2018 3:31 PM CDT Narrative 04/17/2018 1:16 PM CDT See pdf us Dann Vega MD PFT ORDERABLES Final Result documented in this encounter Visit Diagnoses Diagnosis Moderate persistent asthma without complication documented in this encounter Care Teams Delinquent Tax Collector Relationship Specialty Start Date End Date Zunilda Coles MD [address] [place] [address] PCP - General 06/03/17 05/03/19 documented as of this encounter
== END 2024-07-05 14:39 | disposition home or self-care (01) ==
PROVIDERS: Emergency Provider Nurse Practitioner Family
DX: J11.1 Influenza due to unidentified influenza virus with other respiratory manifestations (principal); Z20.822 Contact with and (suspected) exposure to COVID-19
CPT/HCPCS: 87426; 87804; 99213; G0463